=== PATIENT | female | born 1955 | race Caucasian/White ===

== ENCOUNTER → 2017-09-12 14:01 | Outpatient (CLI) | payer OTHER, SELFPAY ==
--- NOTE | 2017-09-12 14:13 | US_ITS ---
US thyroid HISTORY: Follow-up thyroid nodule ITS.REASON: THYROID NODULE ORDERING PHYSICIAN: Sana Pickett PATIENT AGE: 62 years COMPARISON: 03/28/2017 FINDINGS: The right lobe is 3.1 x 1.2 x 1.7 cm. Multiple right lobe nodules are once again noted. 5 mm cystic nodule superiorly, 3 mm hypoechoic nodule upper pole, 7 mm hypoechoic nodule mid aspect, 8 mm isoechoic nodule lower pole, 9 mm isoechoic solid-appearing nodule lower pole. 3 mm hypoechoic nodule lower pole Left lobe is 3.3 x 1.5 x 1.1 cm. 7 mm mixed nodule superiorly. 11 mm mixed nodule lower pole. No new nodules evident. IMPRESSION: Overall no change bilateral thyroid nodules.
== END ==
PROVIDERS: Family Provider Family Medicine; PCP Family Medicine; Visit Provider Nurse Practitioner
DX: E04.1 Nontoxic single thyroid nodule (principal)
CPT/HCPCS: 76536

== ENCOUNTER → 2018-06-05 16:08 | Outpatient (CLI) | payer BC, SELFPAY ==
--- NOTE | 2018-06-05 16:12 | MM_ITS ---
MM Dig screening mamm BI w/CAD ORDERING PHYSICIAN : Frank Sosa MD PATIENT AGE: 63 years GENDER: Female COMPARISON: March 2017, January 2016, July 2014, May 2013 bilateral mammogram INDICATION: ITS.REASON: Routine Screening Mammogram. No hormones. No new complaints \Family history mother and grandmother with breast cancer TECHNIQUE: Standard CC MLO images were obtained. R2 CAD reviewed. Additional axillary cc view both breast on plus MLO nipple profile view included FINDINGS: Moderate scattered fibroglandular elements with areas of moderate density. No new areas of significant concern in either breast.. Stable asymmetric areas of density on that can be followed RIGHT BREAST: No area of fibroglandular tissue D superior breast on 1 o'clock position again noted unchanged since multiple prior studies dating back to least 2014 LEFT BREAST:No new findings. . Stable benign calcification superior upper-outer quadrant left breast but only slight additional benign ringlet like configuration evident here. follow-up in one year adequate bilateral. IMPRESSION: No significant new findings. Bilateral follow-up in one year recommended. BI-RADS Category: 2 Benign Finding(s) RECOMMENDED FOLLOW-UP: 1YR 1 YEAR FOLLOW-UP (A letter has been sent to the patient regarding results of the study.)
== END ==
PROVIDERS: PCP Family Medicine; Visit Provider Nurse Practitioner Obstetrics & Gynecology
DX: Z12.31 Encounter for screening mammogram for malignant neoplasm of breast (principal)
CPT/HCPCS: 77067

== ENCOUNTER → 2018-06-18 15:34 | Outpatient (CLI) | payer BC, SELFPAY ==
--- NOTE | 2018-06-18 15:37 | US_ITS ---
US breast RT complete INDICATION: Palpable abnormality right breast ORDERING PHYSICIAN: Sana Pickett PATIENT AGE: 63 years COMPARISON: 06/05/2018 TECHNIQUE: Complete breast ultrasound performed with axilla FINDINGS: No cystic or solid lesions evident. Small nodes are present in the axilla IMPRESSION: Unremarkable right breast ultrasound. Negative mammogram and negative ultrasound does not exclude the possibility of malignancy. If there is indeed a palpable nodule, then, it should be managed on a clinical basis. BI-RADS Category: 1 Negative Recommendations: Follow up recommended as clinically warranted. If there is indeed a palpable nodule then, it should be managed on a clinical basis. (A letter has been sent to the patient regarding results of the study.)
== END ==
PROVIDERS: PCP Nurse Practitioner; Visit Provider Nurse Practitioner
DX: N63.10 Unspecified lump in the right breast, unspecified quadrant (principal)
CPT/HCPCS: 76641

== ENCOUNTER 2020-11-20 11:20 | Emergency (ER) | payer MEDICARE, SELFPAY ==
[2020-11-20 11:20] VITALS: BP 148/79; PULSE 87; RESP 16; TEMP 36.8; O2SAT 98; BMI 25.4
--- NOTE | 2020-11-20 11:58 | HMH.EDUTC ---
[facility] [place] Disposition Clinical Impression: Burning with urination Disposition: Home, Self-Care Condition on Discharge: Good Additional Instructions: Make sure to drink plenty of water on hot days to keep yourself hydrated Follow up with Family Doctor if no improvement Straight to ER if any worsening of symptoms or any life threatening symptoms Return if needed Referrals: Nicki Feng [Primary Care Provider] - As needed Time of Disposition: 12:03 Medical Decision Making - Saad Inquiry Pt receiving controlled substance: No Saad was queried for this patient: No Vital Signs: 11/20/20 11:20 11/20/20 12:07 Temperature 98.3 F 98.3 F Temperature Source Oral Pulse Rate 87 Pulse Rate [Right Brachial] 87 Respiratory Rate 16 16 Blood Pressure 148/79 H Blood Pressure [Right Arm] 148/79 H Blood Pressure Mean [Right Arm] 102 Blood Pressure Source [Right Arm] Automatic Cuff Blood Pressure Position [Right Arm] Sitting 02 Sat by Pulse Oximetry 98 Oxygen Delivery Method Room Air - Lab Data Lab results reviewed: Yes: I reviewed the patient's lab results. Medical Decision Narrative: Patient state at times she feels bloated in her lower abdomen and has achy like pain but not having it right now Discussed transfer to the ED and patient declined states that she will follow up with her PCP or go to the ER if pain returns [facility] HPI - General Stated complaint: possible uti Time Seen by Provider: 11/20/20 11:58 Mode of Arrival: Ambulatory Source of Information: Patient Limitations: No Limitations Description of Symptoms (Recalled from Triage Doc. by RN): PATIENT C/O PAIN WITH URINATION X 2 DAYS HEENT Symptoms (Recalled from RN notes): No Resp Symptoms (Recalled from RN notes): No Skin Symptoms (Recalled from RN notes): No MS Symptoms (Recalled from RN notes): No Functional Status (Recalled from RN notes): WNL - History of Present Illness Provider Complaint: Patient state that she has been having feeling of urgency and burning with urination for the last couple of days and feeling pressure State that she drink more water yesterday thinking it may help but today she was still having the burning so she came in - Related Data Home Medications Medication Instructions Recorded Confirmed Anastrozole 1 mg PO DAILY 03/23/19 03/23/19 hydroCHLOROthiazide [HCTZ 25mg 25 mg PO DAILY 03/23/19 03/23/19 tab] Previous Rx's Medication Instructions Recorded Ondansetron [Zofran 4mg ODT] 4 mg PO Q8HP PRN #20 tab.rapdis 03/23/19 Phenazopyridine HCl [Pyridium 200 pow PO TID #6 tab 03/23/19 200mg Tablet] Sulfamethoxazole/Trimethoprim 1 each PO BID 7 Days #14 tab 03/23/19 [Bactrim DS tablet] Allergies Allergy/AdvReac Type Severity Reaction Status Date / Time No Known Allergies Allergy Unverified 01/10/18 15:23 - Worker's Comp Is this a Worker's Comp case?: No [facility] History - Hepatitis A Screen Drug use history?: No High risk sexual behaviors?: No History of sexually transmitted infection?: No Currently employed?: No Childcare worker?: No Do you have indoor plumbing?: Yes Do you have electricity?: Yes Attestation statement:: This patient has been screened for Hepatitis A risk factors. I have reviewed the patient's past medical history: Yes Medical History: Reports:: Cancer (BREAST), Hyperlipidemia, Osteoporosis Other Medical History: Reports: Arthritis, Osteoporosis, Sinus Problems, Other Comment: Irregular Heartbeat. Polyps on Thyroid Other Surgeries: Yes: Appendectomy, Tubal Ligation, Other Amputation: No Fractures: No Comment: Rt. Arm Sx to scrape arthritis in - Social History Smoking Status: Never smoker Alcohol Intake: never Occupational Status: other Family Hx:: Hypertension, Coronary Artery Disease, Diabetes, Asthma Comment: Arthritis [employer] history: Tubal Ligation Comment: Preg #[id number]. Preg#[id number] ROS Obtained: Yes All systems reviewed & no sonam
[2020-11-20 12:07] VITALS: BP 148/79; PULSE 87; RESP 16; TEMP 36.8; O2SAT 98
[2020-11-20 19:45] LABS: Apearance,Urine Clear (Clear); Color,Urine Yellow (Yellow)
[2020-11-20 19:46] LABS: Bilirubin,Urine Negative (Negative); Blood, Urine Negative (Negative); Glucose,Urine (UA) 100 (Negative); Ketones,Urine Negative (Negative); Protein,Urine Negative (Negative); Specific Gravity, Urine 1.025 (1.005-1.030); UTC Leukocyte Esterase,Urine Negative (Negative); UTC Nitrate,Urine Negative (Negative); Urobilinogen,Urine 0.2 EU/dl (0.2)
== END 2020-11-20 12:10 | disposition home or self-care (01) ==
PROVIDERS: Emergency Provider Nurse Practitioner; PCP Family Medicine
DX: R30.0 Dysuria (principal); R35.0 Frequency of micturition; E78.5 Hyperlipidemia, unspecified; M81.0 Age-related osteoporosis without current pathological fracture
CPT/HCPCS: G0463; 81003; 99202

== ENCOUNTER 2021-02-04 12:42 | Emergency (ER) | payer MEDICARE, SELFPAY ==
[2021-02-04 13:10] VITALS: BP 150/90; PULSE 85; RESP 18; TEMP 37.1; O2SAT 996; BMI 26.4
[2021-02-04 13:31] VITALS: BP 150/90; PULSE 85; RESP 18; TEMP 37.1
--- NOTE | 2021-02-04 14:01 | HMH.EDUTC ---
[facility] [place] Disposition Clinical Impression: Exposure to COVID-19 virus Acute bronchitis Qualifiers: Bronchitis organism: unspecified organism Qualified Code(s): J20.9 - Acute bronchitis, unspecified Disposition: Home, Self-Care Condition on Discharge: Good Instructions: DI for COVID-19 (Suspected or Confirmed ), Preventing the Spread of Coronavirus Discharge Instructions Additional Instructions: Drink plenty of fluids. Take tylenol or ibuprofen for pain or fever. Take the medications as directed. Follow up with your regular doctor. GO TO THE ER FOR ANY WORSENING SYMPTOMS Quarantine until you know the results of your covid-19 test. If it is positive, the health department should call you and give you further instructions about your length of Quarantine and other things. Notify your school or workplace of your results and follow their instructions regarding return to work/school. The cough syrup (promethazine dm) will make you drowsy, so don't drive or operate heavy machinery after taking it. Bad tableReferrals: Nicki Feng [Primary Care Provider] - Time of Disposition: 14:29 Medical Decision Making - Medical Records Medical records reviewed: No: I reviewed the patient's medical records. - Saad Inquiry Pt receiving controlled substance: No Vital Signs: 02/04/21 13:10 02/04/21 13:31 Temperature 98.8 F 98.8 F Temperature Source Oral Pulse Rate 85 Pulse Rate [Left] 85 Respiratory Rate 18 18 Blood Pressure 150/90 H Blood Pressure [Right Arm] 150/90 H Blood Pressure Mean [Right Arm] 110 02 Sat by Pulse Oximetry 996 H [facility] [place] HPI - General Stated complaint: Sore throat; cough; sob, Time Seen by Provider: 02/04/21 14:15 Mode of Arrival: Ambulatory Source of Information: Patient Limitations: No Limitations Description of Symptoms (Recalled from Triage Doc. by RN): pt c/o myalgia, fever, R sided chest discomfort with coughing and R sided stomach ache. HEENT Symptoms (Recalled from RN notes): No Resp Symptoms (Recalled from RN notes): Yes (cough causing chest discomfort) Skin Symptoms (Recalled from RN notes): No MS Symptoms (Recalled from RN notes): No Functional Status (Recalled from RN notes): body aches and fever - History of Present Illness Provider Complaint: She states that she has been exposed to covid-19 last week by her grand daughter having it and being around her. She has not been vaccinated against covid-19. She c/o cough and chest congestion for the past 1 week. She has had low grade fever and chilling also. - Related Data Home Medications Medication Instructions Recorded Confirmed Anastrozole 1 mg PO DAILY 03/23/19 03/23/19 hydroCHLOROthiazide [HCTZ 25mg 25 mg PO DAILY 03/23/19 03/23/19 tab] Previous Rx's Medication Instructions Recorded Ondansetron [Zofran 4mg ODT] 4 mg PO Q8HP PRN #20 tab.rapdis 03/23/19 Phenazopyridine HCl [Pyridium 200 pow PO TID #6 tab 03/23/19 200mg Tablet] Sulfamethoxazole/Trimethoprim 1 each PO BID 7 Days #14 tab 03/23/19 [Bactrim DS tablet] Azithromycin [Z-Jack 250mg Tab*] 250 mg PO UD DOSE PK #6 tab 02/04/21 Benzonatate [Tessalon Perle 100mg 100 mg PO TIDP PRN #30 cap 02/04/21 Cap] Promethazine/Dextromethorphan 5 ml PO Q6HP PRN #240 ml 02/04/21 [Promethazine-Dm Syrup] methylPREDNISolone [Medrol] 4 mg PO DIRECTED 6 Days #21 02/04/21 packet Allergies Allergy/AdvReac Type Severity Reaction Status Date / Time No Known Allergies Allergy Unverified 01/10/18 15:23 - Worker's Comp Is this a Worker's Comp case?: No [facility] History - Hepatitis A Screen Drug use history?: No High risk sexual behaviors?: No History of sexually transmitted infection?: No Currently employed?: No Childcare worker?: No Do you have indoor plumbing?: Yes Do you have electricity?: Yes Attestation statement:: This patient has been screened for Hepatitis A risk factors. I have reviewed the patient's pas
== END 2021-02-04 14:40 | disposition home or self-care (01) ==
PROVIDERS: Emergency Provider Nurse Practitioner Family; PCP Family Medicine
DX: U07.1 COVID-19 (principal); J20.9 Acute bronchitis, unspecified; E78.5 Hyperlipidemia, unspecified; M81.0 Age-related osteoporosis without current pathological fracture; Z79.899 Other long term (current) drug therapy
CPT/HCPCS: G0463; 99202; C9803; U0003; U0005

== ENCOUNTER → 2021-03-18 17:45 | Outpatient (CLI) | payer MEDICARE, SELFPAY | PROVIDERS: Visit Provider Nurse Practitioner | DX: Z20.822 Contact with and (suspected) exposure to COVID-19 (principal) | CPT/HCPCS: C9803; U0003; U0005 ==

== ENCOUNTER 2022-02-14 15:30 | Outpatient (RCR) | payer MEDICARE, SELFPAY | END 2022-02-14 15:35 | disposition home or self-care (01) | LOC: PT 15:30 | PROVIDERS: PCP Family Medicine; Visit Provider Family Medicine | DX: M48.02 Spinal stenosis, cervical region (principal); M50.20 Other cervical disc displacement, unspecified cervical region; M53.9 Dorsopathy, unspecified | CPT/HCPCS: 97010; 97012; 97014; 97110; 97163; G0283 ==

== ENCOUNTER 2022-03-03 12:49 | Emergency (ER) | payer MEDICARE, SELFPAY ==
[2022-03-03 13:11] VITALS: PULSE 83; RESP 17; TEMP 36.9; O2SAT 99; BMI 26.0
[2022-03-03 13:21] LABS: UTC Strep Screen (Rapid) Negative (Negative)
--- NOTE | 2022-03-03 13:44 | EXP.UTC ---
Discharge Plan Disposition Patient Disposition: Home, Self-Care Condition: Good Prescriptions Prescriptions: New amoxicillin [amoxicillin] 875 mg tablet 875 mg PO Q12H Qty: 20 0RF benzonatate [benzonatate] 100 mg capsule 100 mg PO TIDP PRN (Reason: Cough) Qty: 30 0RF methylprednisolone 4 mg Tablets,Dose Pack 4 mg PO DIRECTED Qty: 21 0RF No Action promethazine-DM 6.25-15 mg/5 mL syrup 5 ml PO Q6HP PRN (Reason: Cough) Qty: 240 0RF benzonatate 100 mg capsule 100 mg PO TIDP PRN (Reason: Cough) Qty: 30 0RF anastrozole 1 MG tablet 1 mg PO DAILY Label Comments: take 1 tablet by mouth once daily hydrochlorothiazide 25 MG tablet 25 mg PO DAILY Label Comments: take 1 tablets by mouth once daily phenazopyridine 200 MG tablet 200 pow PO TID Qty: 6 0RF sulfamethoxazole-trimethoprim 1 EACH tablet 1 each PO BID 7 Days Qty: 14 0RF ondansetron 4 MG tablet,disintegrating 4 mg PO Q8HP PRN (Reason: Nausea) Qty: 20 0RF azithromycin 250 MG tablet 250 mg PO UD DOSE PK Qty: 6 0RF Rx Instructions: Take two (2) tablets today, then one (1) tablet days #2 thru #5 methylprednisolone 4 MG tablets,dose pack 4 mg PO DIRECTED 6 Days Qty: 21 0RF Referrals Follow up/Referrals: Provider,Referral, MD [Referring] - See instructions Activity Restrictions/Add. Instructions Additional Instructions/Restrictions: Drink plenty of fluids. Take tylenol or ibuprofen for pain or fever. Take the medications as directed. Follow up with your regular doctor. GO TO THE ER FOR ANY WORSENING SYMPTOMS Clinical Impressions Clinical Impression: Pharyngitis Instructions Patient Instructions: Strep Throat, DI for Strep Throat Discharge ED Provider: Tony Shane [facility] General Stated complaint: Sore throat, cough, drainage Mode of Arrival: Ambulatory Source of Information: Patient Limitations: No Limitations Time Seen by Provider: 03/03/22 13:28 Description of Symptoms (Recalled from Triage Doc. by RN): pt comes in with c/o sore throat, cough. symptoms began a few days ago. pts granddaughters have strep and she is around them frequently. HEENT Symptoms (Recalled from RN notes): Yes Resp Symptoms (Recalled from RN notes): Yes Skin Symptoms (Recalled from RN notes): No MS Symptoms (Recalled from RN notes): No Functional Status (Recalled from RN notes): n/a History of Present Illness Provider Complaint: She states that for the past 2 days she has had worsening sore throat and sinus congestion. Her grand daughter that lives with her tested positive for strep throat yesterday. She took a home covid-19 test that was negative yesterday. Related Data Home Medications Medication Instructions Recorded Confirmed anastrozole 1 mg tablet 1 mg PO DAILY BREAST CANCER 03/23/19 03/23/19 hydrochlorothiazide 25 mg tablet 25 mg PO DAILY Hypertension 03/23/19 03/23/19 Previous Rx's Medication Instructions Recorded ondansetron 4 mg disintegrating 4 mg PO Q8HP PRN Nausea ##20 03/23/19 tablet phenazopyridine 200 mg tablet 200 pow PO TID #6 tabs 03/23/19 sulfamethoxazole 800 1 each PO BID 7 days #14 tabs 03/23/19 mg-trimethoprim 160 mg tablet azithromycin 250 mg tablet 250 mg PO UD DOSE PK #6 tabs 02/04/21 methylprednisolone 4 mg tablets in 4 mg PO DIRECTED 6 days #21 02/04/21 a dose pack packets benzonatate 100 mg capsule 100 mg PO TIDP PRN Cough #30 caps 02/06/21 promethazine-DM 6.25 mg-15 mg/5 mL 5 ml PO Q6HP PRN Cough #240 mL 02/06/21 oral syrup amoxicillin 875 mg tablet 875 mg PO Q12H #20 tabs 03/03/22 benzonatate 100 mg capsule 100 mg PO TIDP PRN Cough #30 caps 03/03/22 methylprednisolone 4 mg tablets in 4 mg PO DIRECTED #21 tabs 03/03/22 a dose pack Allergies Allergy/AdvReac Type Severity Reaction Status Date / Time No Known Allergies Allergy Verified 03/03/22 13:19 Worker's Comp Is this a Worker's Comp case?: No PFSH PFSH Soc
[2022-03-03 14:00] VITALS: BP 0/0; PULSE 83; RESP 17; TEMP 36.9
== END 2022-03-03 14:00 | disposition home or self-care (01) ==
PROVIDERS: Emergency Provider Nurse Practitioner Family; PCP Family Medicine
DX: J02.9 Acute pharyngitis, unspecified (principal)
CPT/HCPCS: 87880; 99212; G0463

== ENCOUNTER 2022-03-10 13:39 | Emergency (ER) | payer MEDICARE, SELFPAY ==
[2022-03-10 14:20] LABS: Adenovirus,PCR Not Detected (NotDetected); Bordetella Pertussis Not Detected (NotDetected); Chlamydophila Pneumoniae, PCR Not Detected (NotDetected); Coronavirus 19, PCR Not Detected (NotDetected); Coronavirus 229E Not Detected (NotDetected); Coronavirus NL63 Not Detected (NotDetected); Coronavirus OC43 Not Detected (NotDetected); Coronovirus HKU1,PCR Not Detected (NotDetected); Human Metapneumovirus Not Detected (NotDetected); Influenza A, PCR Not Detected (NotDetected); Influenza AH1, 2009 Not Detected (NotDetected); Influenza AH1, PCR Not Detected (NotDetected); Influenza AH3,PCR Not Detected (NotDetected); Influenza B, PCR Not Detected (NotDetected); Mycoplasma Pneumoniae, PCR Not Detected (NotDetected); Parainfluenza 1, PCR Not Detected (NotDetected); Parainfluenza 2, PCR Not Detected (NotDetected); Parainfluenza 3, PCR Not Detected (NotDetected); Parainfluenza 4, PCR Not Detected (NotDetected); Respiratory Syncytial Virus Not Detected (NotDetected)
[2022-03-10 14:22] VITALS: BP 162/82; PULSE 74; RESP 16; TEMP 36.8; O2SAT 98; BMI 26.0
--- NOTE | 2022-03-10 14:25 | EXP.UTC ---
Discharge Plan Disposition Patient Disposition: Home, Self-Care Condition: Good Prescriptions Prescriptions: No Action promethazine-DM 6.25-15 mg/5 mL syrup 5 ml PO Q6HP PRN (Reason: Cough) Qty: 240 0RF benzonatate 100 mg capsule 100 mg PO TIDP PRN (Reason: Cough) Qty: 30 0RF amoxicillin [amoxicillin] 875 mg tablet 875 mg PO Q12H Qty: 20 0RF benzonatate [benzonatate] 100 mg capsule 100 mg PO TIDP PRN (Reason: Cough) Qty: 30 0RF methylprednisolone 4 mg Tablets,Dose Pack 4 mg PO DIRECTED Qty: 21 0RF anastrozole 1 MG tablet 1 mg PO DAILY Label Comments: take 1 tablet by mouth once daily hydrochlorothiazide 25 MG tablet 25 mg PO DAILY Label Comments: take 1 tablets by mouth once daily phenazopyridine 200 MG tablet 200 pow PO TID Qty: 6 0RF sulfamethoxazole-trimethoprim 1 EACH tablet 1 each PO BID 7 Days Qty: 14 0RF ondansetron 4 MG tablet,disintegrating 4 mg PO Q8HP PRN (Reason: Nausea) Qty: 20 0RF azithromycin 250 MG tablet 250 mg PO UD DOSE PK Qty: 6 0RF Rx Instructions: Take two (2) tablets today, then one (1) tablet days #2 thru #5 methylprednisolone 4 MG tablets,dose pack 4 mg PO DIRECTED 6 Days Qty: 21 0RF Referrals Follow up/Referrals: Nicki Feng [Primary Care Provider] - See instructions Activity Restrictions/Add. Instructions Additional Instructions/Restrictions: *Monitor Temp, Over the counter Motrin or Tylenol as directed/as needed Tylenol every 4 hours and Motrin every 6 hours (as long as your family doctor has told you that you can take it) for fever or pain. and straight to ER if unable to lower temp less than 101.0 after medication given *Warm salt water gargles may help to soothe the throat *Throat Lozenges? *Warm fluids like tea with honey may help to soothe the throat? *Sleep elevated *Humidifier/Vaporizer Take your medicaiton as prescribed As discussed hold your Medrol Dose pack if it is elevating your blood pressure and follow up with your Family Doctor to discuss blood pressure treatment Your throat swab was sent for culture. Those results are typically sent to your primary care. Be sure to follow up in 2-3 days with your family doctor/primary care physician if no improvement so they can review those result and treat if necessary. If you don?t have a primary care doctor, I recommend you get one but in the mean time, you will have to return to a walk in clinic Follow up IMMEDIATELY for new or worsening symptoms or no Noticeable improvement over the next 48-72 hours. 911 for difficulty breathing or swallowing Clinical Impressions Clinical Impression: URI (upper respiratory infection) Instructions Patient Instructions: Sore Throat, Amoxicillin [place]charge [place] Chaparrita Plummer [facility] [place] General Stated complaint: sore throat, coughm weakness, h/a, soa Mode of Arrival: Ambulatory Source of Information: Patient Limitations: No Limitations Time Seen by Provider: 03/10/22 14:25 Description of Symptoms (Recalled from Triage Doc. by RN): pt comes in with c/o respiratory infection, blood pressure elevated and sore throat. HEENT Symptoms (Recalled from RN notes): Yes Resp Symptoms (Recalled from RN notes): Yes Skin Symptoms (Recalled from RN notes): No MS Symptoms (Recalled from RN notes): No Functional Status (Recalled from RN notes): n/a History of Present Illness Provider Complaint: Patient states that she has been having sore throat and respiratory infection for about a week States that she was seen and started on antibiotics and steriods but stopped taking them due to it was making her blood pressure go up States that she is suppose to take blood pressure medication but hasnt been taking that either she stopped it about month ago but hasnt discussed it with her PCP States that she came in today wanting to get her throat swabbed again and discuss if she should start the
[2022-03-10 14:33] LABS: UTC Strep Screen (Rapid) Negative (Negative)
[2022-03-10 14:51] VITALS: BP 162/82; PULSE 74; RESP 16; TEMP 36.8
[2022-03-10 18:54] LABS: Rhinovirus/Enterovirus Detected (NotDetected)
== END 2022-03-10 14:52 | disposition home or self-care (01) ==
PROVIDERS: Emergency Provider Nurse Practitioner; PCP Family Medicine
DX: J06.9 Acute upper respiratory infection, unspecified (principal)
CPT/HCPCS: 87581; 87632; 87798; 87880; 99212; C9803; G0463; U0003; U0005

== ENCOUNTER 2022-07-12 11:59 | Emergency (ER) | payer MEDICARE, SELFPAY ==
--- NOTE | 2022-07-12 12:08 | EXP.UTC ---
Discharge Plan Disposition Patient Disposition: Home, Self-Care Condition: Good Prescriptions Prescriptions: New amoxicillin [amoxicillin] 500 mg tablet 500 mg PO TID 10 Days Qty: 30 0RF benzonatate [benzonatate] 100 mg capsule 100 mg PO TIDP PRN (Reason: Cough) Qty: 30 0RF prednisone 10 mg tablet 10 mg PO DIRECTED 9 Days Qty: 21 0RF Rx Instructions: Take 4 tablets daily for 3 days, then take 2 tablets daily for 3 days, then take 1 tablet daily for 3 days, then stop. No Action famotidine 20 mg tablet 20 mg PO BID Label Comments: TAKE 1 TABLET BY MOUTH TWICE DAILY exemestane 25 mg tablet 25 mg PO DAILY Label Comments: TAKE 1 TABLET BY MOUTH ONCE DAILY AFTER A MEAL ,TRY TO TAKE AT THE SAME TIME EACH DAY metoprolol succinate 25 mg tablet extended release 24 hr 25 mg PO DAILY Label Comments: TAKE 1 TABLET BY MOUTH ONCE DAILY DO NOT CRUSH OR CHEW Referrals Follow up/Referrals: Nicki Feng [Primary Care Provider] - See instructions Activity Restrictions/Add. Instructions Additional Instructions/Restrictions: Drink plenty of fluids. Take tylenol or ibuprofen for pain or fever. Take the medications as directed. Follow up with your regular doctor. GO TO THE ER FOR ANY WORSENING SYMPTOMS Clinical Impressions Clinical Impression: Acute bronchitis, Pharyngitis, Exposure to strep throat Instructions Patient Instructions: Strep Throat, DI for Strep Throat Discharge ED Provider: Tony Shane [facility] [place] HPI General Stated complaint: shaky, heavy chest, cough, congestion Time Seen by Provider: 07/12/22 12:07 History of Present Illness Provider Complaint: She states that for the past 3 days she has had a very sore throat, sinus congestion and a productive cough with yellowish sputum. She has had chills and felt like she had a fever, but she has not documented a fever. She denies any shortness of breath and chest pain. Related Data Home Medications Medication Instructions Recorded Confirmed exemestane 25 mg tablet 25 mg PO DAILY . 07/12/22 07/12/22 famotidine 20 mg tablet 20 mg PO BID . 07/12/22 07/12/22 metoprolol succinate 25 mg 25 mg PO DAILY . 07/12/22 07/12/22 tablet,extended release 24 hr Previous Rx's Medication Instructions Recorded amoxicillin 500 mg tablet 500 mg PO TID 10 days #30 tabs 07/12/22 benzonatate 100 mg capsule 100 mg PO TIDP PRN Cough #30 caps 07/12/22 prednisone 10 mg tablet 10 mg PO DIRECTED 9 days #21 07/12/22 tabs Allergies Allergy/AdvReac Type Severity Reaction Status Date / Time No Known Allergies Allergy Verified 07/12/22 12:27 [facility] Disclaimer: The information contained in this section may have been updated after the patient was seen, as this information can be updated by other users. Medical History Anxiety Hx of breast cancer Hyperlipidemia Hypertension Surgical History History of lumpectomy of right breast Social History Smoking Status: Never smoker alcohol intake: never current occupational status: other Travel in the last 8 weeks: None ROS Obtained: Yes All systems reviewed & no additional complaints except as documented Constitutional Constitutional: Reports chills and Reports fever(s) Eyes Eyes: Denies eye discharge ENT Ears, Nose, Mouth, and Throat: Reports as per HPI Cardiovascular Cardiovascular: Denies chest pain Respiratory Respiratory: Denies chest congestion and Reports cough Gastrointestinal Gastrointestingal: Reports nausea; Denies abdominal pain, constipation, cramping, diarrhea or vomiting Musculoskeletal Musculoskeletal: Denies arthralgias Integumentary/Breasts Skin/Breast: Denies rash Neurologic Neurologic: Denies paresthesias Physical Exam General General appearance: lizzette
[2022-07-12 12:15] VITALS: BP 166/87; PULSE 98; RESP 20; TEMP 36.9; O2SAT 96; BMI 26.4
[2022-07-12 12:30] LABS: UTC Strep Screen (Rapid) Negative (Negative)
[2022-07-12 13:12] VITALS: BP 166/87; PULSE 98; RESP 20; TEMP 36.9; O2SAT 96
== END 2022-07-12 13:11 | disposition home or self-care (01) ==
PROVIDERS: Emergency Provider Nurse Practitioner Family; PCP Family Medicine
DX: J20.9 Acute bronchitis, unspecified (principal); Z20.828 Contact with and (suspected) exposure to other viral communicable diseases
CPT/HCPCS: 87880; 99212; 99213; G0463

== ENCOUNTER 2023-04-23 14:00 | Emergency (ER) | payer MEDICARE, SELFPAY ==
[2023-04-23 14:45] VITALS: BP 149/76; PULSE 80; RESP 18; TEMP 37.2; O2SAT 96; BMI 26.0
--- NOTE | 2023-04-23 14:52 | EXP.UTC ---
Discharge Plan Disposition Patient Disposition: Home, Self-Care Condition: Good Prescriptions Prescriptions: New amoxicillin [amoxicillin] 875 mg tablet 875 mg PO Q12H Qty: 20 0RF benzonatate [benzonatate] 100 mg capsule 100 mg PO TIDP PRN (Reason: Cough) Qty: 30 0RF methylprednisolone 4 mg Tablets,Dose Pack 4 mg PO DIRECTED Qty: 21 0RF No Action exemestane 25 mg tablet 25 mg PO DAILY Patient Comments: TAKE 1 TABLET BY MOUTH ONCE DAILY AFTER A MEAL ,TRY TO TAKE AT THE SAME TIME EACH DAY ibuprofen 800 mg tablet 800 mg PO DAILY valacyclovir 1 gram tablet 100 mg PO DAILY amlodipine 5 mg tablet 5 mg PO DAILY potassium chloride 20 mEq tablet extended release 20 meq PO DAILY Referrals Follow up/Referrals: Provider,Referral, MD [Primary Care Provider] - See instructions Activity Restrictions/Add. Instructions Additional Instructions/Restrictions: Drink plenty of fluids. Take tylenol or ibuprofen for pain or fever. Take the medications as directed. Follow up with your regular doctor. GO TO THE ER FOR ANY WORSENING SYMPTOMS Clinical Impressions Clinical Impression: Otitis media, Pharyngitis Instructions Patient Instructions: Middle Ear Infection Discharge ED Provider: Tony Shane [facility] General Stated complaint: sore throat, ear ache Time Seen by Provider: 04/23/23 14:52 History of Present Illness Provider Complaint: She states that for the past 2 days she has had sore throat, chills, body aches and low grade fever. Related Data Home Medications Medication Instructions Recorded Confirmed exemestane 25 mg tablet 25 mg PO DAILY . 07/12/22 04/23/23 amlodipine 5 mg tablet 5 mg PO DAILY 04/23/23 04/23/23 ibuprofen 800 mg tablet 800 mg PO DAILY 04/23/23 04/23/23 potassium chloride 20 mEq 20 meq PO DAILY 04/23/23 04/23/23 tablet,extended release valacyclovir 1 gram tablet 100 mg PO DAILY 04/23/23 04/23/23 Previous Rx's Medication Instructions Recorded amoxicillin 875 mg tablet 875 mg PO Q12H #20 tabs 04/23/23 benzonatate 100 mg capsule 100 mg PO TIDP PRN Cough #30 caps 04/23/23 methylprednisolone 4 mg tablets in 4 mg PO DIRECTED #21 tabs 04/23/23 a dose pack Allergies Allergy/AdvReac Type Severity Reaction Status Date / Time No Known Allergies Allergy Verified 04/23/23 15:08 [facility] Disclaimer: The information contained in this section may have been updated after the patient was seen, as this information can be updated by other users. Medical History Anxiety Hx of breast cancer Hyperlipidemia Hypertension Surgical History History of lumpectomy of right breast Social History Smoking Status: Never smoker alcohol intake: never current occupational status: other Travel in the last 8 weeks: None ROS Obtained: Yes All systems reviewed & no additional complaints except as documented Constitutional Constitutional: Reports chills and Reports fever(s) Eyes Eyes: Denies eye discharge ENT Ears, Nose, Mouth, and Throat: Reports as per HPI Cardiovascular Cardiovascular: Denies chest pain Respiratory Respiratory: Denies chest congestion and Reports cough Gastrointestinal Gastrointestingal: Reports nausea; Denies abdominal pain, constipation, cramping, diarrhea or vomiting Musculoskeletal Musculoskeletal: Denies arthralgias Integumentary/Breasts Skin/Breast: Denies rash Neurologic Neurologic: Denies paresthesias Physical Exam General General appearance: alert and in no apparent distress Head Head exam: atraumatic, normocephalic and normal inspection Eye Eye exam: Present normal appearance, PERRL and EOMI ENT ENT exam: Present mucous membranes moist and normal external ear exam Expanded ENT Exam TM/Canal exam: Bilateral TM: erythema and bu
[2023-04-23 15:08] LABS: UTC Strep Screen (Rapid) Negative (Negative)
[2023-04-23 15:39] VITALS: BP 149/76; PULSE 80; RESP 18; TEMP 37.2; O2SAT 96
== END 2023-04-23 15:38 | disposition home or self-care (01) ==
PROVIDERS: Emergency Provider Nurse Practitioner Family
DX: H66.93 Otitis media, unspecified, bilateral (principal); J02.9 Acute pharyngitis, unspecified; R50.9 Fever, unspecified; I10 Essential (primary) hypertension; E78.5 Hyperlipidemia, unspecified
CPT/HCPCS: 87880; 99212; 99214; G0463

== ENCOUNTER 2023-10-15 18:27 | Emergency (ER) | payer MEDICARE, SELFPAY ==
[2023-10-15 18:55] VITALS: BP 186/90; PULSE 77; RESP 18; TEMP 36.9; O2SAT 96; BMI 27.0
--- NOTE | 2023-10-15 19:29 | ED_ITS ---
Discharge Plan Disposition Patient Disposition: Home, Self-Care Condition: Good Prescriptions Prescriptions: New doxycycline hyclate 100 mg capsule 100 mg PO BID Qty: 20 0RF No Action exemestane 25 mg tablet 25 mg PO DAILY Patient Comments: TAKE 1 TABLET BY MOUTH ONCE DAILY AFTER A MEAL ,TRY TO TAKE AT THE SAME TIME EACH DAY ibuprofen 800 mg tablet 800 mg PO DAILY valacyclovir 1 gram tablet 100 mg PO DAILY amlodipine 5 mg tablet 5 mg PO DAILY potassium chloride 20 mEq tablet extended release 20 meq PO DAILY amoxicillin [amoxicillin] 875 mg tablet 875 mg PO Q12H Qty: 20 0RF benzonatate [benzonatate] 100 mg capsule 100 mg PO TIDP PRN (Reason: Cough) Qty: 30 0RF methylprednisolone 4 mg Tablets,Dose Pack 4 mg PO DIRECTED Qty: 21 0RF Referrals Follow up/Referrals: Nicki Feng [Primary Care Provider] - See instructions Activity Restrictions/Add. Instructions Additional Instructions/Restrictions: Make sure to follow up with your Family Doctor in the next 5-7 days to get the results of your Lyme disease test they can request the results Take medication as prescribed Straight to ER if any life threatening symptoms Clinical Impressions Clinical Impression: Tick bite of abdomen Qualifiers: Encounter type: initial encounter Qualified Code(s): S30.861A - Insect bite (nonvenomous) of abdominal wall, initial encounter Instructions Patient Instructions: Doxycycline, Protect Yourself from Tickborne Illnesses Discharge ED Provider: Chaparrita Plummer [facility] [place] HPI General Stated complaint: Tick bite with rash on right side abd Mode of Arrival: Ambulatory Source of Information: Patient Limitations: No Limitations Time Seen by Provider: 10/15/23 19:30 Description of Symptoms (Recalled from Triage Doc. by RN): PATIENT C/O TICK BITE TO RIGHT LOWER ABDOMEN WITH ITCHY, RED RASH TO AREA. PATIENT SHE NOTICED THE BITE ON SUNDAY AND REMOVED THE TICK, WITH THE RASH STARTING ON SUNDAY HEENT Symptoms (Recalled from RN notes): No Resp Symptoms (Recalled from RN notes): No Skin Symptoms (Recalled from RN notes): Yes MS Symptoms (Recalled from RN notes): No Functional Status (Recalled from RN notes): WNL History of Present Illness Provider Complaint: Patient states that she was bitten by tick and noticed the tick on and removed it and then on Margarito she noticed a rash on her abdomen around where the tick had bitten and the rash is now starting to spread [place] Spotted fever from a bite Related Data Home Medications Medication Instructions Recorded Confirmed exemestane 25 mg tablet 25 mg PO DAILY . 07/12/22 04/23/23 amlodipine 5 mg tablet 5 mg PO DAILY 04/23/23 04/23/23 ibuprofen 800 mg tablet 800 mg PO DAILY 04/23/23 04/23/23 potassium chloride 20 mEq 20 meq PO DAILY 04/23/23 04/23/23 tablet,extended release valacyclovir 1 gram tablet 100 mg PO DAILY 04/23/23 04/23/23 Previous Rx's Medication Instructions Recorded amoxicillin 875 mg tablet 875 mg PO Q12H #20 tabs 04/23/23 benzonatate 100 mg capsule 100 mg PO TIDP PRN Cough #30 caps 04/23/23 methylprednisolone 4 mg tablets in 4 mg PO DIRECTED #21 tabs 04/23/23 a dose pack doxycycline hyclate 100 mg capsule 100 mg PO BID #20 caps 10/15/23 Allergies Allergy/AdvReac Type Severity Reaction Status Date / Time No Known Allergies Allergy Verified 04/23/23 15:08 Worker's Comp Is this a Worker's Comp case?: No [facility] Disclaimer: The information contained in this section may have been updated after the patient was seen, as this information can be updated by other users. Medical History (Updated 10/15/23 @ 19:42 by Chaparrita Plummer APRN) Hx of breast cancer Anxiety Hyperlipidemia Hypertension Surgical History (Updated 10/15/23 @ 19:03 by Marzena Santos RN) History of appendectomy History of tubal ligation History of lumpectomy of right breast Social History Smoking Status: Never smoker alcohol intake: never current occupational status: other Travel in the last 8 weeks: None ROS Obtained: Yes All systems reviewed & no additional complaints except as documented and Yes Systems reviewed as appropriate & no additional complaints except as documented Constitutional Constitutional: Reports system reviewed and no additional complaints, except as documented and Reports as per HPI ENT Ears, Nose, Mouth, and Throat: Reports system reviewed and no additional complaints, except as documented and Reports as per HPI Cardiovascular Cardiovascular: Reports system reviewed and no additional complaints, except as documented and Reports as per HPI Respiratory Respiratory: Reports system reviewed and no additional complaints, except as documented and Reports as per HPI Gastrointestinal Gastrointestingal: Reports system reviewed and no additional complaints, except as documented and as per HPI Integumentary/Breasts Skin/Breast: Reports system reviewed and no additional complaints, except as documented, Reports as per HPI and Reports rash (around tick bite on right abdomen) Physical Exam General General appearance: alert and in no apparent distress ENT ENT exam: Present mucous membranes moist Respiratory Respiratory exam: Present normal lung sounds bilaterally; Absent respiratory distress or wheezes Cardiovascular Cardiovascular exam: Present regular rate, normal rhythm and normal heart sounds Neurological Exam Neurological exam: Present alert, oriented X3 and normal gait Skin Skin exam: Present rash (red rash on right side lower abdomen that started after removal of tick on Sunday red raised and starting to expand) Medical Decision Making Saad Inquiry Pt receiving controlled substance: No Saad was queried for this patient: No Vital Signs: 10/15/23 18:55 Temperature 98.4 F Temperature Source Oral Pulse Rate [Left Brachial] 77 Respiratory Rate 18 Blood Pressure [Left Arm] 186/90 H Blood Pressure Mean [Left Arm] 122 Blood Pressure Source [Left Arm] Automatic Cuff Blood Pressure Position [Left Arm] Sitting 02 Sat by Pulse Oximetry 96 Oxygen Delivery Method Room Air
[2023-10-15 19:42] VITALS: BP 186/90; PULSE 77; RESP 18; TEMP 36.9; O2SAT 96
[2023-10-19 15:35] LABS: Lyme B. burgdorferi PCR Blood Negative (Negative)
== END 2023-10-15 20:00 | disposition home or self-care (01) ==
PROVIDERS: Emergency Provider Nurse Practitioner; PCP Family Medicine
DX: S30.861A Insect bite (nonvenomous) of abdominal wall, initial encounter (principal); W57.XXXA Bitten or stung by nonvenomous insect and other nonvenomous arthropods, initial encounter
CPT/HCPCS: 87476; 99212; 99214; G0463

== ENCOUNTER 2023-11-14 14:01 | Emergency (ER) | payer MEDICARE, SELFPAY ==
[2023-11-14 14:40] VITALS: BP 163/91; PULSE 75; RESP 20; TEMP 36.9; O2SAT 97; BMI 27.3
[2023-11-14 14:54] LABS: UTC Strep Screen (Rapid) Negative (Negative)
--- NOTE | 2023-11-14 15:06 | ED_ITS ---
Discharge Plan Disposition Patient Disposition: Home, Self-Care Condition: Good Prescriptions Prescriptions: New prednisone 10 mg tablet 10 mg PO DIRECTED 9 Days Qty: 21 0RF Rx Instructions: Take 4 tablets daily for 3 days, then take 2 tablets daily for 3 days, then take 1 tablet daily for 3 days, then stop. azithromycin [Zithromax] 250 mg tablet 250 mg PO UD DOSE PK Qty: 6 0RF Rx Instructions: Take two (2) tablets today, then one (1) tablet days #2 thru #5 benzonatate 100 mg capsule 100 mg PO TIDP PRN (Reason: Cough) Qty: 30 0RF No Action exemestane 25 mg tablet 25 mg PO DAILY Patient Comments: TAKE 1 TABLET BY MOUTH ONCE DAILY AFTER A MEAL ,TRY TO TAKE AT THE SAME TIME EACH DAY ibuprofen 800 mg tablet 800 mg PO DAILY valacyclovir 1 gram tablet 100 mg PO DAILY amlodipine 5 mg tablet 5 mg PO DAILY potassium chloride 20 mEq tablet extended release 20 meq PO DAILY amoxicillin [amoxicillin] 875 mg tablet 875 mg PO Q12H Qty: 20 0RF benzonatate [benzonatate] 100 mg capsule 100 mg PO TIDP PRN (Reason: Cough) Qty: 30 0RF methylprednisolone 4 mg Tablets,Dose Pack 4 mg PO DIRECTED Qty: 21 0RF doxycycline hyclate 100 mg capsule 100 mg PO BID Qty: 20 0RF Referrals Follow up/Referrals: Nicki Feng [Primary Care Provider] - See instructions Activity Restrictions/Add. Instructions Additional Instructions/Restrictions: Drink plenty of fluids. Take tylenol or ibuprofen for pain or fever. Take the medications as directed. Follow up with your regular doctor. GO TO THE ER FOR ANY WORSENING SYMPTOMS Don't start the oral steroids (prednisone) until tomorrow since you had the shot her Clinical Impressions Clinical Impression: Sinusitis Instructions Patient Instructions: Sinusitis, DI for Sinusitis Discharge ED Provider: Tony Shane [facility] [place] HPI General Stated complaint: sore throat, cough Time Seen by Provider: 11/14/23 15:01 Related Data Home Medications Medication Instructions Recorded Confirmed exemestane 25 mg tablet 25 mg PO DAILY . 07/12/22 04/23/23 amlodipine 5 mg tablet 5 mg PO DAILY 04/23/23 04/23/23 ibuprofen 800 mg tablet 800 mg PO DAILY 04/23/23 04/23/23 potassium chloride 20 mEq 20 meq PO DAILY 04/23/23 04/23/23 tablet,extended release valacyclovir 1 gram tablet 100 mg PO DAILY 04/23/23 04/23/23 Previous Rx's Medication Instructions Recorded amoxicillin 875 mg tablet 875 mg PO Q12H #20 tabs 04/23/23 benzonatate 100 mg capsule 100 mg PO TIDP PRN Cough #30 caps 04/23/23 methylprednisolone 4 mg tablets in 4 mg PO DIRECTED #21 tabs 04/23/23 a dose pack doxycycline hyclate 100 mg capsule 100 mg PO BID #20 caps 10/15/23 azithromycin 250 mg tablet 250 mg PO UD DOSE PK #6 tabs 11/14/23 (Zithromax) benzonatate 100 mg capsule 100 mg PO TIDP PRN Cough #30 caps 11/14/23 prednisone 10 mg tablet 10 mg PO DIRECTED 9 days #21 11/14/23 tabs Allergies Allergy/AdvReac Type Severity Reaction Status Date / Time No Known Allergies Allergy Verified 04/23/23 15:08 [facility] Disclaimer: The information contained in this section may have been updated after the patient was seen, as this information can be updated by other users. Medical History (Updated 11/14/23 @ 15:32 by Tony Shane APRN) Hx of breast cancer Anxiety Hyperlipidemia Hypertension Surgical History (Updated 10/15/23 @ 19:03 by Marzena Santos RN) History of appendectomy History of tubal ligation History of lumpectomy of right breast Social History Smoking Status: Never smoker alcohol intake: never current occupational status: other Travel in the last 8 weeks: None ROS Obtained: Yes All systems reviewed & no additional complaints except as documented Constitutional Constitutional: Reports poor appetite Eyes Eyes: Reports system reviewed and no additional complaints, except as documented ENT Ears, Nose, Mouth, and Throat: Reports as per HPI Cardiovascular Cardiovascular: Reports system reviewed and no additional complaints, except as documented and Denies chest pain Respiratory Respiratory: Denies shortness of breath, Denies chest congestion, Reports cough, Denies stridor and Denies wheezing Gastrointestinal Gastrointestingal: Reports system reviewed and no additional complaints, except as documented; Denies abdominal pain, diarrhea or vomiting Musculoskeletal Musculoskeletal: Reports system reviewed and no additional complaints, except as documented and Denies arthralgias Integumentary/Breasts Skin/Breast: Reports system reviewed and no additional complaints, except as documented and Denies rash Neurologic Neurologic: Denies paresthesias Allergic/Immunologic Allergic/Immunologic: Denies wheezing Physical Exam General General appearance: alert and in no apparent distress Eye Eye exam: Present normal appearance, PERRL and EOMI ENT ENT exam: Present mucous membranes moist and normal external ear exam Expanded ENT Exam External ear exam: Present normal external inspection TM/Canal exam: Bilateral TM: erythema and bulging Nose exam: Absent sinus tenderness Nasal speculum exam: Bilateral: normal Mouth exam: Present normal external inspection; Absent drooling Teeth exam: Present normal inspection Throat exam: Present tonsillar erythema and tonsillomegaly Neck Neck exam: Present normal inspection, full ROM and trachea midline; Absent tenderness, lymphadenopathy or thyromegaly Chest Chest inspection: Present normal inspection and symmetric chest wall rise; Absent tenderness or rash Respiratory Respiratory exam: Present normal lung sounds bilaterally; Absent respiratory distress, wheezes, stridor or accessory muscle use Cardiovascular Cardiovascular exam: Present regular rate, normal rhythm and normal heart sounds Abdominal Exam Abdominal exam: Present soft; Absent distention, tenderness, guarding, rebound or rigidity Extremities Exam Extremities exam: Present normal inspection, full ROM and normal capillary refill; Absent tenderness or calf tenderness Back Exam Back exam: Present normal inspection and full ROM; Absent tenderness Neurological Exam Neurological exam: Present alert and oriented X3 Psychiatric Psychiatric exam: Present normal affect and normal mood Skin Skin exam: Present warm, dry, intact and normal color Lymphatic Lymphatic Findings: no adenopathy Medical Decision Making Medical Records Medical records reviewed: No I reviewed the patient's medical records. Saad Inquiry Pt receiving controlled substance: No Lab Data Lab results reviewed: Yes I reviewed the patient's lab results. Lab Results 11/14/23 14:44: Strep Scn Rapid Clinic Negative Orders (Tests/Meds): ORDERS Category Date Time Status Strep Screen Confirmation Stat Micro 11/14/23 14:44 Received
[2023-11-14] MEDS: DEXAMETHASONE 4MG/ML 1ML VIAL 8 MG IM (15:16)
[2023-11-14 15:35] VITALS: BP 163/91; PULSE 75; RESP 20; TEMP 36.9; O2SAT 97
== END 2023-11-14 15:40 | disposition home or self-care (01) ==
PROVIDERS: Emergency Provider Nurse Practitioner Family; PCP Family Medicine
DX: J01.90 Acute sinusitis, unspecified (principal); R07.0 Pain in throat; R05.9 Cough, unspecified
CPT/HCPCS: 87880; 96372; 99212; 99214; G0463; J1100

== ENCOUNTER 2024-03-14 12:48 | Emergency (ER) | payer MEDICARE, SELFPAY ==
[2024-03-14] VITALS (7 sets, daily range): BP systolic 142–176; BP diastolic 75–99; PULSE 62–85; RESP 19–20; TEMP 36.8; O2SAT 96–98; BMI 25.4
--- NOTE | 2024-03-14 14:23 | XR_ITS ---
PROCEDURE INFORMATION: Exam: XR Right Ribs with PA Chest Exam date and time: 03/14/2024 2:43 PM Age: 68 years old Clinical indication: Chest wall pain; Right; Additional info: Fall, R sided rib pain TECHNIQUE: Imaging protocol: Radiologic exam of the right ribs with PA chest. Views: 3 views COMPARISON: No relevant prior studies available. FINDINGS: Lungs: Calcified granulomas noted at the right lung apex. Pleural spaces: No large effusion or pneumothorax. Heart/Mediastinum: There are multiple calcified mediastinal nodes. Vasculature: There are calcifications of the aortic arch. Bones/joints: No evidence of acute osseous abnormalities within the visualized portions of the thoracic spine and ribs. Osseous structures appear appropriate for patient age. IMPRESSION: 1. No displaced rib fracture is identified. 2. No dense parenchymal consolidation, pleural effusion, or pneumothorax.
[2024-03-14] MEDS: LIDOCAINE 5% TRANSDERMAL PATCH 1 EACH TP (15:40)
[2024-03-14] MEDS: ACETAMINOPHEN 500MG TAB 1000 MG PO (15:40)
--- NOTE | 2024-03-14 15:40 | ED_ITS ---
Discharge Plan Disposition Patient Disposition: Home, Self-Care Condition: Good Prescriptions Prescriptions: No Action prednisone 10 mg tablet 10 mg PO DIRECTED 9 Days Qty: 21 0RF Rx Instructions: Take 4 tablets daily for 3 days, then take 2 tablets daily for 3 days, then take 1 tablet daily for 3 days, then stop. azithromycin [Zithromax] 250 mg tablet 250 mg PO UD DOSE PK Qty: 6 0RF Rx Instructions: Take two (2) tablets today, then one (1) tablet days #2 thru #5 benzonatate 100 mg capsule 100 mg PO TIDP PRN (Reason: Cough) Qty: 30 0RF exemestane 25 mg tablet 25 mg PO DAILY Patient Comments: TAKE 1 TABLET BY MOUTH ONCE DAILY AFTER A MEAL ,TRY TO TAKE AT THE SAME TIME EACH DAY ibuprofen 800 mg tablet 800 mg PO DAILY valacyclovir 1 gram tablet 100 mg PO DAILY amlodipine 5 mg tablet 5 mg PO DAILY potassium chloride 20 mEq tablet extended release 20 meq PO DAILY amoxicillin [amoxicillin] 875 mg tablet 875 mg PO Q12H Qty: 20 0RF benzonatate [benzonatate] 100 mg capsule 100 mg PO TIDP PRN (Reason: Cough) Qty: 30 0RF methylprednisolone 4 mg Tablets,Dose Pack 4 mg PO DIRECTED Qty: 21 0RF doxycycline hyclate 100 mg capsule 100 mg PO BID Qty: 20 0RF Referrals Follow up/Referrals: Nicki Thomas MD [Primary Care Provider] - See instructions Activity Restrictions/Add. Instructions Additional Instructions/Restrictions: You were evaluated in the emergency department today. Please take Tylenol and ibuprofen every 4-6 hours at home as needed for pain. Follow-up closely with your primary care provider. Return to the emergency department for new or worsening symptoms. Clinical Impressions Clinical Impression: Contusion of rib Instructions Patient Instructions: DI for Rib Contusion Print Language Print Language: Cambodian Discharge ED Provider: Eliana Woo General Adult HPI General Chief complaint: PAIN Stated complaint: AO 03/13/24-Pain in R Rib area, heard pop Time Seen by Provider: 03/14/24 13:17 Mode of Arrival: Family Vehicle Source of Information: Patient and Medical Record Limitations: No Limitations Description of Symptoms (Recalled from ER Triage Doc. by RN): Pt c/o R anterior rib pain after leaning into her deep freezer yesterday. States she has low bone density and felt something pop when she was bending over the edge of the freezer. No bruising or redness noted to the skin. She has not had any OTC medications for this pain today. History of Present Illness HPI narrative: This patient is a 68-year-old female with a history of osteoporosis presenting to the emergency department for evaluation with concern for right anterior lower rib pain. She notes that she was leaning over on her right side into her deep freezer yesterday trying to get something out of the bottom of it when she felt a pop. She notes that she now has pain with coughing and tenderness palpation of right anterior lower ribs. She denies any shortness of breath, trouble breathing, or other concerns. She was well prior to this. No other injuries noted. Related Data Home Medications ?Medication ?Instructions ?Recorded ?Confirmed exemestane 25 mg tablet 25 mg PO DAILY . 07/12/22 04/23/23 amlodipine 5 mg tablet 5 mg PO DAILY 04/23/23 04/23/23 ibuprofen 800 mg tablet 800 mg PO DAILY 04/23/23 04/23/23 potassium chloride 20 mEq 20 meq PO DAILY 04/23/23 04/23/23 tablet,extended release valacyclovir 1 gram tablet 100 mg PO DAILY 04/23/23 04/23/23 Previous Rx's ?Medication ?Instructions ?Recorded amoxicillin 875 mg tablet 875 mg PO Q12H #20 tabs 04/23/23 benzonatate 100 mg capsule 100 mg PO TIDP PRN Cough #30 caps 04/23/23 methylprednisolone 4 mg tablets in 4 mg PO DIRECTED #21 tabs 04/23/23 a dose pack doxycycline hyclate 100 mg capsule 100 mg PO BID #20 caps 10/15/23 azithromycin 250 mg tablet 250 mg PO UD DOSE PK #6 tabs 11/14/23 (Zithromax) benzonatate 100 mg capsule 100 mg PO TIDP PRN Cough #30 caps 11/14/23 prednisone 10 mg tablet 10 mg PO DIRECTED 9 days #21 11/14/23 tabs Allergies Allergy/AdvReac Type Severity Reaction Status Date / Time No Known Allergies Allergy Verified 04/23/23 15:08 [facility] Disclaimer: The information contained in this section may have been updated after the patient was seen, as this information can be updated by other users. Medical History Hx of breast cancer Anxiety Hyperlipidemia Hypertension Surgical History History of appendectomy History of tubal ligation History of lumpectomy of right breast Social History Smoking Status: Former smoker alcohol intake: never current occupational status: other Travel in the last 8 weeks: None Other Medical History Have you received the Flu Vaccine for this season: No ROS Obtained: Yes All systems reviewed & no additional complaints except as documented Physical Exam General General appearance: alert and in no apparent distress Head Head exam: atraumatic and normocephalic Eye Eye exam: Present normal appearance, PERRL and EOMI ENT ENT exam: Present normal exam, normal oropharynx, mucous membranes moist and normal external ear exam Neck Neck exam: Present normal inspection, full ROM and trachea midline; Absent tenderness Chest Chest inspection: Present symmetric chest wall rise and tenderness Expanded Chest Exam Female Torso: 2 1. Tenderness to palpation with no obvious step-offs, deformities, or crepitus. No significant bruising. Respiratory Respiratory exam: Present normal lung sounds bilaterally; Absent respiratory distress, wheezes, stridor or accessory muscle use Cardiovascular Cardiovascular exam: Present regular rate and normal rhythm Abdominal Exam Abdominal exam: Present soft; Absent distention, tenderness or guarding Extremities Exam Extremities exam: Present normal inspection, full ROM and normal capillary refill; Absent tenderness or edema Back Exam Back exam: Present normal inspection and full ROM; Absent tenderness Neurological Exam Neurological exam: Present alert, oriented X3, CN II-XII intact and normal gait; Absent motor sensory deficit Psychiatric Psychiatric exam: Present normal affect and normal mood Skin Skin exam: Present warm and dry Medical Decision Making Medical Records Medical records reviewed: Yes I reviewed the patient's medical records. Screening: Per USPSTF and CDC recommendations, given the prevalence of disease in our region, it is our hospital?s policy to screen for HIV and viral Hepatitis for all patients aged 18 and over and those with ongoing risk factors. Saad Inquiry Pt receiving controlled substance: No Vital Signs: 03/14/24 12:50 03/14/24 13:30 03/14/24 14:00 Temperature 98.2 F Temperature Source Oral Pulse Rate 71 66 Pulse Rate [Right] 81 Respiratory Rate 19 Blood Pressure 157/85 H 156/89 H Blood Pressure [Right Arm] 164/76 H Blood Pressure Mean 98 111 Blood Pressure Mean [Right Arm] 105 Blood Pressure Source Blood Pressure Source [Right Arm] Automatic Cuff 02 Sat by Pulse Oximetry 98 97 98 Oxygen Delivery Method Room Air Room Air Room Air 03/14/24 14:30 03/14/24 15:01 03/14/24 15:41 Temperature Temperature Source Pulse Rate 66 62 Pulse Rate [Right] Respiratory Rate Blood Pressure 142/81 H 162/83 H 176/99 H Blood Pressure [Right Arm] Blood Pressure Mean 112 109 Blood Pressure Mean [Right Arm] Blood Pressure Source Blood Pressure Source [Right Arm] 02 Sat by Pulse Oximetry 97 96 Oxygen Delivery Method Room Air Room Air 03/14/24 16:10 Temperature 98.2 F Temperature Source Oral Pulse Rate 85 Pulse Rate [Right] Respiratory Rate 20 Blood Pressure 142/75 H Blood Pressure [Right Arm] Blood Pressure Mean Blood Pressure Mean [Right Arm] Blood Pressure Source Automatic Cuff Blood Pressure Source [Right Arm] 02 Sat by Pulse Oximetry Oxygen Delivery Method Room Air Lab Data Lab results reviewed: Yes I reviewed the patient's lab results. Orders (Tests/Meds): ED MEDICATIONS Discontinued Medications Generic Name Dose Route Start Last Admin Trade Name Freq PRN Reason Stop Dose Admin Acetaminophen 1,000 mg 03/14/24 15:35 03/14/24 15:40 Acetaminophen 500mg Tab PO 03/14/24 15:36 1,000 mg ONCE ONE Administration Ketorolac Tromethamine 30 mg 03/14/24 15:35 03/14/24 15:41 Ketorolac 30mg/Ml Vial IM 03/14/24 15:36 30 mg ONCE ONE Administration Lidocaine 1 each 03/14/24 15:35 03/14/24 15:40 Lidocaine 5% Transdermal Patch TP 03/14/24 15:36 1 each ONCE ONE Administration ORDERS Category Date Time Status XR ribs RT min 3V w CXR1V Stat Exams 03/14/24 14:23 Completed Medical Decision Narrative: In summary, this patient is a 68-year-old female presenting to the Emergency Department for evaluation of right anterior lower rib pain. Differential diagnoses considered include but are not limited to rib fracture, rib contusion, musculoskeletal strain/sprain, pneumothorax. Ruling out the most morbid conditions drove assessment. It should be noted patient's history includes osteoporosis which is not at goal therapy. This complicates all aspects of care by increasing patient's risk for morbidity. On exam, the patient is lying in bed in no acute distress with reassuring vital signs on cardiac telemetry. She has tenderness to palpation of her right anterior lower ribs with no appreciable step-offs, crepitus, or significant deformity. Workup included x-rays of the ribs and chest. She was given IM Toradol, oral Tylenol, and topical Lidoderm patch for symptomatic improvement of pain. I independently interpreted x-rays prior to the radiologist read and noted no obvious significantly displaced rib fractures and no pneumothorax. Please see their read for final interpretation. On reassessment, the patient is resting comfortably and continues to have no increased work of breathing with reassuring vital signs on cardiac telemetry. Based on reassuring exam and history, I feel that she is appropriate for discharge home with diagnosis of likely rib contusion, though I did explain to her that sometimes subtle fractures can be missed on x-ray. She was given instructions for supportive management and strict return precautions. She was discharged after all questions were answered. Critical Care Critical Care Time Critical Care Time: No
[2024-03-14] MEDS: KETOROLAC 30MG/ML VIAL 30 MG IM (15:41)
== END 2024-03-14 16:14 | disposition home or self-care (01) ==
PROVIDERS: Emergency Provider Emergency Medicine; PCP Family Medicine
DX: S20.219A Contusion of unspecified front wall of thorax, initial encounter (principal); R07.82 Intercostal pain; X58.XXXA Exposure to other specified factors, initial encounter; Y93.89 Activity, other specified; Y92.008 Other place in unspecified non-institutional (private) residence as the place of occurrence of the external cause
CPT/HCPCS: 71101; 96372; 99283; J1885

== ENCOUNTER 2024-05-02 14:52 | Emergency (ER) | payer MEDICARE, SELFPAY ==
[2024-05-02] VITALS (8 sets, daily range): BP systolic 128–171; BP diastolic 83–85; PULSE 70–86; RESP 11–19; TEMP 36.7; O2SAT 94–98; BMI 24.7
--- NOTE | 2024-05-02 14:57 | ECG_ITS ---
APPROVED REPORT Exam: Resting ECG HR:86 bpm ECG Measurements Heart Rate 86 AXES NE 150 P 33 QRSd 103 QRS -7 QT 358 T 33 QTc 401 Conclusion SINUS RHYTHM INCOMPLETE RIGHT BUNDLE BRANCH BLOCK [90+ ms QRS DURATION, TERMINAL R IN V1/V2, 40+ ms S IN I/aVL/V4/V5/V6] BORDERLINE ECG UNCONFIRMED REPORT Electronically signed by : Tony Oquendo, 05/03/2024 23:12:10
--- NOTE | 2024-05-02 14:58 | ED_ITS ---
<Statement entered by Monica Oquendo MD - 05/02/24 23:23> I was consulted by the KATHRYN, and we discussed the complexity of the problems being addressed. I approved the treatment and management plan for this patient's care in the emergency department, thus performing a substantive portion of the medical decision making. Monica Oquendo MD, LAURA, FACEP Discharge Plan Disposition Patient Disposition: Home, Self-Care Condition: Good Prescriptions Prescriptions: No Action prednisone 10 mg tablet 10 mg PO DIRECTED 9 Days Qty: 21 0RF Rx Instructions: Take 4 tablets daily for 3 days, then take 2 tablets daily for 3 days, then take 1 tablet daily for 3 days, then stop. azithromycin [Zithromax] 250 mg tablet 250 mg PO UD DOSE PK Qty: 6 0RF Rx Instructions: Take two (2) tablets today, then one (1) tablet days #2 thru #5 benzonatate 100 mg capsule 100 mg PO TIDP PRN (Reason: Cough) Qty: 30 0RF exemestane 25 mg tablet 25 mg PO DAILY Patient Comments: TAKE 1 TABLET BY MOUTH ONCE DAILY AFTER A MEAL ,TRY TO TAKE AT THE SAME TIME EACH DAY ibuprofen 800 mg tablet 800 mg PO DAILY valacyclovir 1 gram tablet 100 mg PO DAILY amlodipine 5 mg tablet 5 mg PO DAILY potassium chloride 20 mEq tablet extended release 20 meq PO DAILY amoxicillin [amoxicillin] 875 mg tablet 875 mg PO Q12H Qty: 20 0RF benzonatate [benzonatate] 100 mg capsule 100 mg PO TIDP PRN (Reason: Cough) Qty: 30 0RF methylprednisolone 4 mg Tablets,Dose Pack 4 mg PO DIRECTED Qty: 21 0RF doxycycline hyclate 100 mg capsule 100 mg PO BID Qty: 20 0RF Referrals Follow up/Referrals: Nicki Thomas MD [Primary Care Provider] - See instructions Blaine Amin MD [Staff Physician] - See instructions Clinical Impressions Clinical Impression: Chest pain Instructions Patient Instructions: DI for Chest Pain Print Language Print Language: Malaysian Discharge ED Provider: Monica Oquendo HPI General Chief Complaint: Chest Pain Stated Complaint: on and off chest pain-not at moment Time Seen by Provider: 05/02/24 14:58 History of Present Illness HPI narrative: -Presents for evaluation of chest pain. Patient gives a 2-week history of intermittent chest pain. Last episode was today. Patient states that she has very brief episodes of substernal chest pain during exertional activities primarily. Patient states that that she has never had it at rest. Patient states that she put up her [employer] [facility] register yesterday and did not have it however she was playing with her grandchild today and had it. She denies any shortness of breath fever chills hemoptysis hematochezia melena nausea vomiting diarrhea. She does not have a cardiac history. Related Data Home Medications ?Medication ?Instructions ?Recorded ?Confirmed exemestane 25 mg tablet 25 mg PO DAILY . 07/12/22 04/23/23 amlodipine 5 mg tablet 5 mg PO DAILY 04/23/23 04/23/23 ibuprofen 800 mg tablet 800 mg PO DAILY 04/23/23 04/23/23 potassium chloride 20 mEq 20 meq PO DAILY 04/23/23 04/23/23 tablet,extended release valacyclovir 1 gram tablet 100 mg PO DAILY 04/23/23 04/23/23 Previous Rx's ?Medication ?Instructions ?Recorded amoxicillin 875 mg tablet 875 mg PO Q12H #20 tabs 04/23/23 benzonatate 100 mg capsule 100 mg PO TIDP PRN Cough #30 caps 04/23/23 methylprednisolone 4 mg tablets in 4 mg PO DIRECTED #21 tabs 04/23/23 a dose pack doxycycline hyclate 100 mg capsule 100 mg PO BID #20 caps 10/15/23 azithromycin 250 mg tablet 250 mg PO UD DOSE PK #6 tabs 11/14/23 (Zithromax) benzonatate 100 mg capsule 100 mg PO TIDP PRN Cough #30 caps 11/14/23 prednisone 10 mg tablet 10 mg PO DIRECTED 9 days #21 11/14/23 tabs Allergies Allergy/AdvReac Type Severity Reaction Status Date / Time No Known Allergies Allergy Verified 04/23/23 15:08 [facility] Disclaimer: The information contained in this section may have been updated after the patient was seen, as this information can be updated by other users. Medical History Hx of breast cancer Anxiety Hyperlipidemia Hypertension Surgical History History of appendectomy History of tubal ligation History of lumpectomy of right breast Social History Smoking Status: Former smoker alcohol intake: never current occupational status: other Travel in the last 8 weeks: None Other Medical History Have you received the Flu Vaccine for this season: No ROS Obtained: Yes Systems reviewed as appropriate & no additional complaints except as documented Physical Exam General General appearance: alert and in no apparent distress Respiratory Respiratory exam: Present normal lung sounds bilaterally Cardiovascular Cardiovascular exam: Present regular rate and normal heart sounds Neurological Exam Neurological exam: Present alert and oriented X3 HEART Score HEART Score HEART Score assessment performed?: Yes History (anamnesis): Slightly suspicious ECG: Non-specific disturbance Age: >65 years Risk factors: 1-2 risk factors Troponin: </= normal limit HEART Score: 4 Critical Care Critical Care Time Critical Care Time: No Medical Decision Making Medical Records Medical records reviewed: Yes I reviewed the patient's medical records. Saad Inquiry Pt receiving controlled substance: No Vital Signs Vital Signs: 05/02/24 14:52 05/02/24 16:00 05/02/24 16:15 Temperature 98.0 F Temperature Source Oral Pulse Rate 76 71 Pulse Rate [Right] 86 Respiratory Rate 16 13 11 L Blood Pressure 128/85 Blood Pressure [Right Arm] 171/85 H Blood Pressure Mean [Right Arm] 113 Blood Pressure Source Blood Pressure Source [Right Arm] Automatic Cuff 02 Sat by Pulse Oximetry 98 96 94 L Oxygen Delivery Method Room Air 05/02/24 16:30 05/02/24 16:45 05/02/24 17:00 Temperature Temperature Source Pulse Rate 79 76 76 Pulse Rate [Right] Respiratory Rate 14 11 L 19 Blood Pressure 151/83 H 157/85 H Blood Pressure [Right Arm] Blood Pressure Mean [Right Arm] Blood Pressure Source Blood Pressure Source [Right Arm] 02 Sat by Pulse Oximetry 94 L 95 95 Oxygen Delivery Method 05/02/24 17:30 05/02/24 17:40 Temperature 98.0 F Temperature Source Oral Pulse Rate 70 72 Pulse Rate [Right] Respiratory Rate 14 16 Blood Pressure 137/83 137/83 Blood Pressure [Right Arm] Blood Pressure Mean [Right Arm] Blood Pressure Source Automatic Cuff Blood Pressure Source [Right Arm] 02 Sat by Pulse Oximetry 95 Oxygen Delivery Method Room Air Room Air Lab Data Lab results reviewed: Yes I reviewed the patient's lab results. Labs: Lab Results 05/02/24 15:00: WBC 7.3, RBC 4.96, Hgb 15.4, Hct 44.8, MCV 90.4, MCH 31.0, MCHC 34.3, RDW 13.1, Plt Count 325, MPV 7.7, Neut % (Auto) 59.0, Lymph % (Auto) 30.9, Boyd % (Auto) 5.6, Eos % (Auto) 2.8, Baso % (Auto) 1.7, Neut # (Auto) 4.3, Lymph # (Auto) 2.3, Boyd # (Auto) 0.4, Eos # (Auto) 0.2, Baso # (Auto) 0.1, D-Dimer 0.86 H, Sodium 142, Potassium 3.9, Chloride 108 H, Carbon Dioxide 26, Anion Gap 11.9, BUN 15, Creatinine 0.80, Estimated GFR 71, Est GFR ( Amer) 86, Glucose 97, Calcium 9.1, Total Bilirubin 0.4, AST 31, ALT 25, Alkaline Phosphatase 79, Troponin I < 0.01, NT-Pro-B Natriuret Pep 37.4, Total Protein 8.0, Albumin 4.6, Globulin 3.4 H, Albumin/Globulin Ratio 1.4, HIV 1&2 Antibody Rapid Nonreactive 05/02/24 16:01: SARS-CoV-2 (PCR) Not detected, Influenza A Untype (PCR) Not detected, Influenza Type B (PCR) Not detected, POC RSV Rapid Negative 05/02/24 17:00: Troponin I < 0.01 05/02/24 15:00 05/02/24 15:00 Response Orders (Tests/Meds): ORDERS Category Date Time Status Chest XR 2 view (NOT portable) [XR chest 2V] Stat Exams 05/02/24 15:10 Completed BNP [NT Pro Brain Natriuretic Pep.] Stat Lab 05/02/24 15:00 Completed CBC w/Auto Diff [Complete Blood Count Auto Diff] Stat Lab 05/02/24 15:00 Completed CMP [Comprehensive Metabolic Panel] Stat Lab 05/02/24 15:00 Completed D-Dimer Stat Lab 05/02/24 15:00 Completed Full Resp Panel w/COVID ([facility]) Routine Lab 05/02/24 16:01 Received HIV (1&2) Antibody Rapid Stat Lab 05/02/24 15:00 Completed Hep C Ab with Reflex to RNA Stat Lab 05/02/24 15:00 Received RSV Rapid Ab Screen Stat Lab 05/02/24 16:01 Completed Rapid PCR Covid and Flu A/B Stat Lab 05/02/24 16:01 Completed Trop I [Troponin I] Stat Lab 05/02/24 15:00 Completed Troponin I Q3H Lab 05/02/24 17:00 Completed MDM Narrative Medical Decision Narrative: In summary patient is a 69-year-old female who presents to the emergency department for evaluation of chest pain. Patient is medically stable upon arrival, febrile. Physical exam is unremarkable and nonfocal currently curling no chest pain no shortness of breath fever chills hemoptysis hematochezia melena nausea vomiting diarrhea. Patient has no reproducible chest pain on palpation. Patient has no epigastric tenderness. Breath sounds are clear and equal bilaterally to the bases. EKG appears to be normal sinus rhythm on the bedside monitor.. Differential diagnosis includes ACS versus esophageal spasm versus gastroenteritis versus GERD etc. Initial workup will be conducted with hematologic labs plain film chest x-ray twelve-lead EKG respiratory swabs. Initial interventions were considered however patient has no current symptoms thus deferred for now. Initial workup reviewed by me shows that her hematologic labs are nonactionable her troponins were negative x 2 her plain film chest x- ray via my informal interpretation shows no acute processes and her twelve-lead EKG showed no evidence of ACS. Due to age patient could not be ruled in or out by PERC criteria thus D-dimer was done and via years criteria her D-dimer is not above 1 thus PE is ruled out.. Upon repeat evaluation patient has had no symptoms while been in the emergency department.. Given this patient is appropriate for discharge referral to cardiology for further workup and close follow-up with her PCP.
--- NOTE | 2024-05-02 15:10 | XR_ITS ---
FINAL REPORT CLINICAL HISTORY: Intermittent chest pain COMPARISON: None FINDINGS: Two views of the chest were obtained. The heart size and pulmonary vascularity are within normal limits. The mediastinum is normal. No acute pulmonary abnormality is identified. There are multiple calcified granulomas in the right lung. There is no pneumothorax. The bony thorax is intact. IMPRESSION: No active cardiopulmonary disease. Reviewed, Interpreted and Dictated by Max Ramon III, MD Transcribed by Tita Diaz Authenticated and . [facility]
[2024-05-02 15:15] LABS: Basophils # 0.1 K/mm3 (0-0.2); Basophils % 1.7 % (0.1-2.0); Eosinophils # 0.2 K/mm3 (0.0-0.4); Eosinophils % 2.8 % (0.1-12.0); Hematocrit 44.8 % (37.0-47.0); Hemoglobin 15.4 g/dL (12.2-16.2); Lymphocytes # 2.3 K/mm3 (0.7-4.5); Lymphocytes % 30.9 % (10-50); Mean Corpuscular HGB Conc 34.3 g/dL (31.8-35.4); Mean Corpuscular Volume 90.4 fl (81-99); Mean Platelet Volume 7.7 fl (7.4-10.4); Monocytes # 0.4 K/mm3 (0.1-1.0); Monocytes % 5.6 % (1.7-9.3); Neutrophils # 4.3 K/mm3 (1.8-7.8); Platelet Count 325 K/mm3 (142-424); Red Blood Count 4.96 M/mm3 (4.20-5.40); Red Cell Distribution Width 13.1 % (11.5-17.5); White Blood Count 7.3 K/mm3 (4.8-10.8)
[2024-05-02 15:22] LABS: Alanine Aminotransferase 25 U/L (12-78); Albumin Level 4.6 g/dl (3.5-5.0); Albumin/Globulin Ratio 1.4 (1.1-1.8); Alkaline Phosphatase 79 U/L (38-126); Anion Gap 11.9 mEq/L (5-15); Aspartate Amino Transferase 31 U/L (14-36); Bilirubin,Total 0.4 mg/dl (0.2-1.3); Blood Urea Nitrogen 15 mg/dl (7-17); Calcium 9.1 mg/dl (8.4-10.2); Carbon Dioxide 26 mmol/L (22.0-30.0); Chloride 108 mmol/L (98-107); Estimated Glomerular Filt Rate 71 ml/min (>60); GFR (African American) 86 ML/MIN (>60); Globulin 3.4 g/dL (1.3-3.2); Glucose 97 mg/dl (74-100); Potassium 3.9 mmoL/L (3.5-5.1); Sodium 142 mmol/L (136-145)
[2024-05-02 15:26] LABS: D-Dimer 0.86 ug/mL (0.0-0.5)
[2024-05-02 15:35] LABS: NT Pro Brain Natriuretic Pep. 37.4 pg/mL (0-125)
[2024-05-02 15:44] LABS: Troponin I < 0.01 ng/ml (0.00-0.034)
--- NOTE | 2024-05-02 16:02 | PC.NURSE ---
Respiratory swab sent to lab; pt reports no needs at this time
[2024-05-02 16:06] LABS: Adenovirus,PCR Not Detected (NotDetected); Bordetella Pertussis Not Detected (NotDetected); Chlamydophila Pneumoniae, PCR Not Detected (NotDetected); Coronavirus 19, PCR Not Detected (NotDetected); Coronavirus 229E Not Detected (NotDetected); Coronavirus NL63 Not Detected (NotDetected); Coronavirus OC43 Not Detected (NotDetected); Coronovirus HKU1,PCR Not Detected (NotDetected); Human Metapneumovirus Not Detected (NotDetected); Influenza A, PCR Not Detected (NotDetected); Influenza AH1, 2009 Not Detected (NotDetected); Influenza AH1, PCR Not Detected (NotDetected); Influenza AH3,PCR Not Detected (NotDetected); Influenza B, PCR Not Detected (NotDetected); Mycoplasma Pneumoniae, PCR Not Detected (NotDetected); Parainfluenza 1, PCR Not Detected (NotDetected); Parainfluenza 2, PCR Not Detected (NotDetected); Parainfluenza 3, PCR Not Detected (NotDetected); Parainfluenza 4, PCR Not Detected (NotDetected); Respiratory Syncytial Virus Not Detected (NotDetected); Rhinovirus/Enterovirus Not Detected (NotDetected)
[2024-05-02 16:14] LABS: Coronavirus 19, PCR Not Detected (NotDetected); Influenza A, PCR Not Detected (NotDetected); Influenza B, PCR Not Detected (NotDetected)
--- NOTE | 2024-05-02 16:59 | PC.NURSE ---
labs states that rsv, covid and flu will take approx 40 minutes until results
[2024-05-02 17:11] LABS: RSV Rapid Ab Screen Negative (Negative)
[2024-05-02 17:36] LABS: Troponin I < 0.01 ng/ml (0.00-0.034)
[2024-05-02 17:44] LABS: HIV (1&2) Antibody Rapid NONREACTIVE (NONREACTIVE)
[2024-05-03 09:00] LABS: HCV Ab Non Reactive (Non Reactive)
== END 2024-05-02 18:00 | disposition home or self-care (01) ==
PROVIDERS: Physician Assistant; Emergency Provider Student in an Organized Health Care Education/Training Program; PCP Family Medicine
DX: R07.9 Chest pain, unspecified (principal)
CPT/HCPCS: 71046; 80053; 83880; 84484; 85025; 85378; 86803; 87389; 87633; 87636; 87807; 93005; 99284

== ENCOUNTER 2024-05-06 15:20 | Outpatient (CLI) | payer MEDICARE, SELFPAY | END 2024-05-06 23:59 | disposition home or self-care (01) | LOC: RT 15:22 | PROVIDERS: PCP Family Medicine; Visit Provider Physician Assistant | DX: R00.2 Palpitations (principal); I10 Essential (primary) hypertension; E78.49 Other hyperlipidemia; R94.31 Abnormal electrocardiogram [ECG] [EKG]; Z82.49 Family history of ischemic heart disease and other diseases of the circulatory system; R07.89 Other chest pain; R06.00 Dyspnea, unspecified | CPT/HCPCS: 93270 ==

== ENCOUNTER 2024-05-15 07:52 | Outpatient (CLI) | payer MEDICARE, SELFPAY ==
--- NOTE | 2024-05-15 | CA_ITS ---
APPROVED REPORT Exam: Pharmacologic Technologist: Santa Davis Ht: 5 ft 1 in Wt: 143 lbs BSA: 1.64 m2 Stress Test Details Test: Lexiscan Reason for pharmacologic stress test: physical limitation. HR Resting HR: 67 bpm Max Heart Rate (APMHR): 152 bpm Max HR Achieved: 106 bpm Target HR (85% APMHR): 129 bpm % of APMHR: 70 Recovery HR: 80 bpm BP Resting BP: 146.0/76.0 mmHg Max BP: 167.0/83.0 mmHg Recovery BP: 146.0/74.0 mmHg ECG Resting ECG: NSR Stress ECG Conclusion Symptoms: Mild SOA, head discomfort, mild stomach discomfort. No CP. Arrhythmias/Ectopy: Rare PVC. ST-T Changes: No significant changes. Conclusion: Unremarkable Lexiscan stress Electronically signed by : Leann Amin MD 05/15/2024 12:40:45
--- NOTE | 2024-05-15 07:53 | NM_ITS ---
APPROVED REPORT Exam: Nuclear Stress Test Indication: chest pain..soa Patient Location: Outpatient Stress Tech: Santa Ontiveros [place] Tech:Shira PedersonMARIA LUISA RT(R)(N) Ht: 5 ft 0 in Wt: 145 lbs Bra Size: 38b HR: 67 bpm BP: 146/76 mmHg BSA: 1.63 m2 TID: 1.07 History: chest pain, soa Procedure: Patient received 0.4 mg of intravenous Lexiscan, resting heart rate 67 bpm, resting blood pressure 146/76 mmHg, with Lexiscan maximum heart rate achieved was 106 bpm which is 85 % of the maximum predicted heart rate and blood pressure was 167/83 mmHg. With Lexiscan, patient denied any complaint of chest pain. Cardiac Stress and Resting SPECT Images: Cardiac Stress and Resting SPECT images were obtained using technetium 99m Myoview 32.8 mCi stress and 10.76 mCi at rest. Resting and stress imaging in supine and prone positions demonstrate no evidence of fixed or reversible perfusion defects. Gated imaging demonstrates normal global and regional LV systolic function. LVEF is calculated at 64%. Conclusion: No evidence of fixed or reversible perfusion defects. Gated imaging demonstrates normal global and regional LV systolic function. LVEF is calculated at 64%. Electronically signed by : Leann Amin MD 05/15/2024 12:38:18
[2024-05-15] MEDS: REGADENOSON 0.4MG/5ML SYRINGE 0.4 MG IV (10:56)
[2024-05-15] MEDS: ISOTOPE MYOVIEW (PER STUDY) 1 DOSE IV (10:56)
[2024-05-15] MEDS: SODIUM CHLORIDE 0.9% 10ML SYR (RAD ONLY) 10 ML IV ×2 (10:56→10:57)
== END 2024-05-15 23:59 | disposition home or self-care (01) ==
LOC: RAD 07:53
PROVIDERS: PCP Family Medicine; Visit Provider Physician Assistant
DX: R07.9 Chest pain, unspecified (principal); I10 Essential (primary) hypertension; E78.49 Other hyperlipidemia; R94.31 Abnormal electrocardiogram [ECG] [EKG]; Z82.49 Family history of ischemic heart disease and other diseases of the circulatory system; R06.00 Dyspnea, unspecified; R07.89 Other chest pain
CPT/HCPCS: 78452; 93017; 93018; 93306; A9502; J2785

== ENCOUNTER 2024-06-14 12:35 | Emergency (ER) | payer MEDICARE, SELFPAY ==
[2024-06-14 12:55] VITALS: BP 136/77; PULSE 82; RESP 19; TEMP 36.7; O2SAT 100; BMI 28.8
--- NOTE | 2024-06-14 13:17 | EXP.UTC ---
Discharge Plan Disposition Patient Disposition: Home, Self-Care Condition: Good Prescriptions Prescriptions: New doxycycline hyclate 100 mg capsule 100 mg PO BID 7 Days Qty: 14 0RF prednisone 10 mg tablets,dose pack 10 mg PO DIRECTED Qty: 21 0RF Rx Instructions: see taper instructions fluconazole 100 mg tablet 100 mg PO DAILY Qty: 11 0RF Rx Instructions: Take 2 tabs the first day and then one tablet a day for the next 9 days. No Action aspirin [Adult Low Dose Aspirin] 81 mg tablet,delayed release (DR/EC) 81 mg PO DAILY Qty: 30 2RF amlodipine 5 mg tablet 10 mg PO DAILY Referrals Follow up/Referrals: Provider,Referral, MD [Primary Care Provider] - See instructions Activity Restrictions/Add. Instructions Additional Instructions/Restrictions: Take medication as prescribed. Increase fluids and rest. Follow up with PCP if symptoms persist or worsen. Clinical Impressions Clinical Impression: Candidiasis of mouth Sinusitis Qualifiers: Sinusitis location: maxillary Chronicity: acute Recurrence: non-recurrent Qualified Code(s): J01.00 - Acute maxillary sinusitis, unspecified Instructions Patient Instructions: DI for Sinusitis, Thrush-Adult Print Language Print Language: Romanian Discharge ED Provider: Raine Villegas [facility] General Stated complaint: sore throat, sinus pressure Mode of Arrival: Ambulatory Source of Information: Patient Limitations: No Limitations Time Seen by Provider: 06/14/24 13:16 Description of Symptoms (Recalled from Triage Doc. by RN): PATIENT C/O SINUS PRESSURE AND POSSIBLE THRUSH THAT STARTED THIS WEEK HEENT Symptoms (Recalled from RN notes): Yes Resp Symptoms (Recalled from RN notes): No Skin Symptoms (Recalled from RN notes): No MS Symptoms (Recalled from RN notes): No Functional Status (Recalled from RN notes): WNL History of Present Illness Provider Complaint: Pt reports that she has had a white coating on her tongue and her grandchildren have had thrush. She states that she has had right sided sinus pressure and pain with frequent bloody noses and upper teeth pain. Related Data Home Medications ?Medication ?Instructions ?Recorded ?Confirmed amlodipine 5 mg tablet 10 mg PO DAILY 05/06/24 06/14/24 Previous Rx's ?Medication ?Instructions ?Recorded aspirin 81 mg tablet,delayed 81 mg PO DAILY #30 tabs 05/06/24 release (Adult Low Dose Aspirin) doxycycline hyclate 100 mg capsule 100 mg PO BID 7 days #14 caps 06/14/24 fluconazole 100 mg tablet 100 mg PO DAILY #11 tabs 06/14/24 prednisone 10 mg tablets in a dose 10 mg PO DIRECTED #21 tabs 06/14/24 pack Allergies Allergy/AdvReac Type Severity Reaction Status Date / Time Zglyafv-[id number] Reductase AdvReac Weakness Verified 06/11/24 14:24 Inhibitor Worker's Comp Is this a Worker's Comp case?: No [facility] Disclaimer: The information contained in this section may have been updated after the patient was seen, as this information can be updated by other users. Medical History Hx of breast cancer Anxiety Hyperlipidemia Hypertension Surgical History History of appendectomy History of tubal ligation History of lumpectomy of right breast Social History Smoking Status: Former smoker alcohol intake: never current occupational status: other Travel in the last 8 weeks: None Have you lived/traveled outside [place] in past 30 days?: No Contact w/someone who lives/traveled outside [place] past 30 days?: No Exposure to someone with infectious disease in past 14 days?: No Do you have a fever (greater than 100.4 F or 38 C)?: No Have you tested positive for COVID-19: No Exposed to someone with COVID-19 in past 14 days?: No Do you have a sore throat?: No Do you have a cough?: No Do you have any weakness?: No Do you have any diarrhea?: No Are you experiencing any unusual bleeding?: No Do you have any muscle aches/pain?: No Do you have any abdominal pain?: No Are you experiencing loss of taste or smell?: No ROS Obtained: Yes All systems reviewed & no additional complaints except as documented Constitutional Constitutional: Reports system reviewed and no additional complaints, except as documented Eyes Eyes: Reports system reviewed and no additional complaints, except as documented ENT Ears, Nose, Mouth, and Throat: Reports system reviewed and no additional complaints, except as documented, Reports dry mouth, Reports facial pain, Reports nasal congestion, Reports nasal discharge and Reports sore throat Cardiovascular Cardiovascular: Reports system reviewed and no additional complaints, except as documented Respiratory Respiratory: Reports system reviewed and no additional complaints, except as documented Gastrointestinal Gastrointestingal: Reports system reviewed and no additional complaints, except as documented Genitourinary Female Genitourinary: Reports system reviewed and no additional complaints, except as documented Musculoskeletal Musculoskeletal: Reports system reviewed and no additional complaints, except as documented Integumentary/Breasts Skin/Breast: Reports system reviewed and no additional complaints, except as documented Neurologic Neurologic: Reports system reviewed and no additional complaints, except as documented Endocrine Endocrine: Reports system reviewed and no additional complaints, except as documented Hematologic/Lymphatic Henatologic/Lymphatic: Reports system reviewed and no additional complaints, except as documented Allergic/Immunologic Allergic/Immunologic: Reports system reviewed and no additional complaints, except as documented Physical Exam General General appearance: alert and in no apparent distress Head Head exam: atraumatic and normocephalic Eye Eye exam: Present normal appearance Expanded ENT Exam External ear exam: Present normal external inspection Nose exam: Present sinus tenderness (right maxillary swelling and tenderness noted) Nasal speculum exam: Bilateral: epistaxis Mouth exam: Present other (white coating on tongue) Teeth exam: Present normal inspection Throat exam: Present tonsillar erythema Neck Neck exam: Present normal inspection Chest Chest inspection: Present normal inspection and symmetric chest wall rise Respiratory Respiratory exam: Present normal lung sounds bilaterally Cardiovascular Cardiovascular exam: Present regular rate and normal rhythm Abdominal Exam Abdominal exam: Present soft Extremities Exam Extremities exam: Present normal inspection Back Exam Back exam: Present normal inspection Neurological Exam Neurological exam: Present alert and oriented X3 Psychiatric Psychiatric exam: Present normal affect and normal mood Skin Skin exam: Present warm, dry and intact Lymphatic Lymphatic Findings: no adenopathy Medical Decision Making Medical Records Screening: Per USPSTF and CDC recommendations, given the prevalence of disease in our region, it is our hospital?s policy to screen for HIV and viral Hepatitis for all patients aged 18 and over and those with ongoing risk factors. Saad Inquiry Pt receiving controlled substance: No Saad was queried for this patient: No Vital Signs: 06/14/24 12:55 Temperature 98.1 F Temperature Source Oral Pulse Rate [Left Brachial] 82 Respiratory Rate 19 Blood Pressure [Left Arm] 136/77 Blood Pressure Mean [Left Arm] 96 Blood Pressure Source [Left Arm] Automatic Cuff Blood Pressure Position [Left Arm] Sitting 02 Sat by Pulse Oximetry 100 Oxygen Delivery Method Room Air
[2024-06-14 13:35] VITALS: BP 136/77; PULSE 82; RESP 19; TEMP 36.7; O2SAT 100
== END 2024-06-14 13:39 | disposition home or self-care (01) ==
PROVIDERS: Emergency Provider Nurse Practitioner Family
DX: B37.0 Candidal stomatitis (principal); J01.00 Acute maxillary sinusitis, unspecified; R07.0 Pain in throat; R09.81 Nasal congestion; R68.2 Dry mouth, unspecified
CPT/HCPCS: 99212; G0381

== ENCOUNTER 2025-01-10 16:45 | Outpatient (CLI) | payer MEDICARE, SELFPAY ==
--- OUTSIDE RECORDS SUMMARY | 2025-01-02 09:00 | XMS_ITS | Encounter Summary ---
Author Organization Healthcare Address [address] [id number] Care Team Providers Care Branch Account Manager Name Role Phone Nicki Thomas MD Primary Care Provider [phone] Reji Gonsales MD Unavailable [phone] Reason for Visit * Reason Comments [...] Description 01/02/2025 9:00 AM EDT Office Visit [facility] [address] [place] [address] Zenia Worthy, IRON WORKER, DNP [address] [place] [address] ETD (Eustachian tube dysfunction), left [...] How often do you attend chur or adventist services? Never 12/07/2023 Do you belong to any clubs o r organizations such as uatsdin groups, unions, fraternal or athletic groups, or [...] place to sleep or slept in a mcfp (including now)? No 12/07/2023 PHQ-9 Answer Date [...] declined 01/02/2025 How often do you attend uatsdin or adventist serv ices? Patient declined 01/02/2025 Do you belong to any clubs o r organizations such as uatsdin groups, unions, fraternal or athletic groups, or [...] drinks on one occasion? Patient declined [facility] - Occupational Stress Questionnaire Answer Date Recorded [...] any time in the past 12 m [facility], were you homeless or living in a mcfp (including now)? No 01/02/2025 Safety and Environment [...] Month) No 01/02/2025 9:22 AM EDT Barbara iPna 6. Suicidal Behavior (Lifetime) No 9:22 AM EDT Barbara Pina documented as of this encounter Miscellaneous Notes * Progress Notes - Zenia Worthy, IRON WORKER, DNP - 01/02/2025 9:00 AM EDT Subjective [...] Session: Patient declined Stress: Patient Declined (01/02/2025) [employer] [place] [facility] [employer] - Occupational Stress Questionnaire Feeling of Stress: Patient declined Social Connections: Patient Declined (01/02/2025) Social Connection and Isolation Panel Frequency of Communication with Friends and Family: Patient declined Frequency of Social Gatherings with Friends and Family: Patient declined Attends Protestant Services: Patient declined Active Member of Clubs [...] Date Due [facility]-Hepatitis C Screening Never done [facility]-[id number]-14 Vaccine (1) Never done [facility]- SDOH Screenings [...] Procedure Laterality Date APPENDECTOMY N/A Appendectomy from [facility] APPENDECTOMY N/A Appendectomy from [facility] BREAST LUMPECTOMY Right 2019 [facility] ELBOW SURGERY N/A [facility] ELBOW SURGERY N/A Elbow surgery from [facility] TUBAL LIGATION N/A [facility] [4] Current Outpatient Medications on File Prior [...] Description 01/30/2025 1:00 PM EDT Office Visit [facility] [address] [place] [address] Nicki Thomas MD [address] [place] [address] 04/06/2025 11:00 AM EST Clinical Support [facility] Laboratory Services [address] [facility], 1st [place] [address] 04/20/2025 3:00 PM EST Appointment [facility] Bone & Mineral Metabolism [address] [facility], [address] [place] [address] 04/20/2025 3:20 PM EST Office Visit [facility] Bone & Mineral Metabolism [address] [facility], [address] [place] [address] Teri Jose, GREY [address] [facility] [address] [place] [address] 10/26/2025 1:00 PM EDT Appointment [facility] Breast [facility] Comprehensive Breast Care Center [address] [address] Lizzette Khoury [facility] [address] [place] [address] 10/26/2025 2:30 PM EDT Office Visit [facility] Breast Care Center [address] [facility], [address]nd [place] [address] Michaela Lloyd, IRON WORKER [address] [facility] [address] [place] [address] documented as of this encounter Procedures Procedure Name Priority Date/Time Associated Diagnosis Comments COMPREHENSIVE METABOLIC PANEL, PLASMA Routine 01/02/2025 9:50 AM EDT Muscle cramps documented in this encounter Results * Comprehensive Metabolic Panel, Plasma (01/02/2025 9:50 AM EDT) Glucose, Plasma 87 74 - 99 mg/dL 01/02/2025 3:09 PM EDT [facility] BUN, Plasma 11 8 - 23 mg/dL 01/02/2025 3:09 PM EDT [facility] Creatinine, Plasma 0.65 0.60 - 1.10 mg/dL 01/02/2025 3:09 PM EDT [facility] BUN/Creatinine Ratio 17 01/02/2025 3:09 PM EDT [facility] Sodium, Plasma 143 136 - 145 mmol/L 01/02/2025 3:09 PM EDT [facility] Potassium, Plasma 3.8 3.6 - 4.9 mmol/L 01/02/2025 3:09 PM EDT [facility] Chloride, Plasma 106 97 - 107 mmol/L 01/02/2025 3:09 PM EDT [facility] CO2, Plasma 24 22 - 29 mmol/L 01/02/2025 3:09 PM EDT [facility] Anion Gap 13 6 - 16 mmol/L 01/02/2025 3:09 PM EDT [facility] Total Calcium, Plasma 9.2 8.9 - 10.2 mg/dL 01/02/2025 3:09 PM EDT [facility] Total Protein 7.6 6.3 - 7.9 g/dL 01/02/2025 3:09 PM EDT [facility] Albumin, Plasma 4.6 3.5 - 5.2 g/dL 01/02/2025 3:09 PM EDT [facility] AST, Plasma 24 10 - 35 U/L 01/02/2025 3:09 PM EDT [facility] ALT, Plasma 28 10 - 35 U/L 01/02/2025 3:09 PM EDT [facility] Alkaline Phosphatase, Plasma 88 46 - 142 U/L 01/02/2025 3:09 PM EDT [facility] Total Bilirubin, Plasma 0.5 0.2 - 1.1 mg/dL 01/02/2025 3:09 PM EDT [facility] eGFRcr 96.0 mL/min/1.7 3m*2 01/02/2025 3:09 PM EDT [facility] Comment:Reported eGFRcr in m L/min/1.73m2 is based the CKD-EPI 2020 equation that does not use a race coefficient. Blood Venous blood specimen / Unknown Venipuncture / Unknown 01/02/2025 9:50 AM EDT 01/02/2025 9:50 AM EDT us Zenia Worthy IRON WORKER, DNP LAB BLOOD ORDERABLES Final Result [facility] [address] [place] [address] documented in this encounter Visit Diagnoses Diagnosis [...] documented as of this encounter Care Teams Branch Account Manager Relationship Specialty Start Date End Date Nicki Thomas MD [address] [place] [address] PCP - General 10/08/20 Reji Gonsales MD [address] [facility] [address] [place] [address] Consulting Physician Radiation Oncology 08/02/21 documented as of this encounter
--- OUTSIDE RECORDS SUMMARY | 2025-01-12 11:26 | XMS_ITS | Encounter Summary ---
Author Organization Healthcare Address [address] [id number] Care Team Providers Care Chemical Equipment Sales Engineer Name Role Phone Nicki Thomas MD Primary Care Provider [phone] Reji Gonsales MD Unavailable [phone] Andrey Cordon Unavailable Unavailable Cherise Hart LPN Unavailable Unavailabl e Reason for Visit * Reason Comments Med Refill Encounter Details Date Type Department Care Team (Late Contact Info) Description 07/05/2022 Refill Family and Community Medicine [address] [place] [address] Marina Elizabeth, CELL TUBER MACHINE [address] [place] [address] Sprain of temporomandibular joint, initial encounter Social History Tobacco Use Types Packs/Day Years Used Date Smoking Tobacco: Former Cigarettes 0.3 15 1 983 - 1998 Smokeless Tobacco: Never Alcohol Use Standard Drinks/Week Comments Not Currently 0 (1 standard drink = 0.6 oz pur e alcohol) h/o social use PHQ-2 Answer Date Recorded Patient Health Questionnaire-2 Score 0 05/31/2022 Comments No Sex and Gender Information Value Date Recorded Sex Assigned at Not on file Legal Sex Female 6:13 PM EDT Gender Identity Not on file Sexual Orientation Not on file documented as of this encounter Plan of Treatment Upcoming Encounters Date Type Department Care Team (Late Contact Info) Description 01/30/2025 1:00 PM EDT Office Visit [facility] Community Medicine [address] [place] [address] Nicki Thomas MD [address] [place] [address] 04/06/2025 11:00 AM EST Clinical Support [facility] Laboratory Services [address], 1st [place] [address] 04/20/2025 3:00 PM EST Appointment [facility] Bone & Mineral Metabolism [address] [facility] [place] [address] 04/20/2025 3:20 PM EST Office Visit [facility] Bone & Mineral Metabolism [address] [facility] [place] [address] Teri Jose PA [address] [place] [address] 10/26/2025 1:00 PM EDT Appointment [facility] Breast [facility] Comprehensive Breast Care Center [address] [place] [address] 10/26/2025 2:30 PM EDT Office Visit [facility] Breast Care [place] [address] 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, tickborne typhus fever) 12/26/2021 12/26/2021 11/30/2022 3:11 PM E DT Assessment Noted Time A fall risk assessment has been complete d for the patient 05/31/2022 1:03 PM EST documented as of this encounter Care Teams Chemical Equipment Sales Engineer Relationship Specialty Start Date End Date Nicki Thomas MD [address] [place] [address] PCP - General 10/08/20 Reji Gonsales MD [address] [facility] [address] [place] [address] Consulting Physician Radiation Oncology 08/02/21 Andrey Cordon [address] [address] Community Health Worker 10/29/23 11/05/23 Cherise Hart LPN VALUE-BASED TRANSFORMATION PROGRAM TCM Nurse 12/05/23 01/04/24 documented as of this encounter
--- OUTSIDE RECORDS SUMMARY | 2025-01-12 11:27 | XMS_ITS | Clinical Summary ---
Author Organization [facility] Address [address] [place] [address], [address] [place] [address] Care Team Providers Care Director Of Professional Services Name Role Phone System, Referring Not In Primary Care Provider U navailable Social History Tobacco Use Types Packs/Day Years Used Date Smoking Tobacco: Never Assessed Comments Unknown Sex and Gender Information Value Date Recorded Sex Assigned at Not on file Legal Sex Female 1:56 PM EST Gender Identity Not on file Sexual Orientation Not on file Plan of Treatment Not on file Care Teams Director Of Professional Services Relationship Specialty Start Date End Date System, Referring Not In PCP - General 06/14/12
--- OUTSIDE RECORDS SUMMARY | 2025-01-12 11:27 | XMS_ITS | Clinical Summary ---
Author Organization [facility] Address [address] [place] [address] Care Team Providers Care Health Management Consultant Name Role Phone Nicki Thomas MD Primary Care Provider Reji Gonsales MD Unavailable [phone] Allergies Active Allergy Reactions Criticality Noted Date Comments Ezetimibe Other - please docum ent in the comment field Low 01/24/2024 Joint pains Statins Other - please docum ent in the comment field Low 01/04/2023 Makes her sick and heaviness in her legs, nightmares Medications aspirin 325 MG EC tablet Take 1 tablet (325 mg) by mouth 2 (two) times a day. Active albuterol 108 (90 Base) MCG/ACT inhalerIndicatio ns:Acute bronchitis due to other specified organisms Inhale 2 puffs every 6 (six) hours if needed for wheezing. 18 g 11 2 Active valACYclovir (Valtrex) 1 g tablet Take 1 tablet (1,000 mg) by mouth 2 (two) times a day. 30 tablet 3 3 Active ketoconazole (NIZOral) 2 % cream Apply 1 Application topically 2 (two) times a day. 4 Active diazePAM (Valium) 2 MG tabletIndication s:Meniere's disease of right ear TAKE 1 TABLET BY MOUTH THREE TIMES A DAY NEEDED 90 tablet 3 4 Active cyclobenzaprine (Flexeril) 5 MG tabletIndication s:Acute back pain, unspecified back location, unspecified back pain laterality,Acute pain of right shoulder Take 1 tablet (5 mg) by mouth 2 (two) times a day if needed for muscle spasms. 30 tablet 4 Active omega-3 (Fish Oil) 1000 MG capsule Take 1 capsule (1,000 mg) by mouth 1 (one) time each day. 90 capsule 2 4 Active cholecalciferol (Vitamin D3) 25 MCG (1000 UT) tablet Take 1 tablet (1,000 Units) by mouth 1 (one) time each day. 90 tablet 2 4 Active alpha tocopherol (Vitamin E) 400 units capsule Take 1 capsule (400 Units) by mouth 1 (one) time each day. 90 capsule 2 4 Active Calcium & Magnesium Carbonates 975-232 MG tablet Take 1 tablet by mouth 1 (one) time each day. 90 tablet 2 4 Active Calcium-Magnesiu m 500-250 MG tablet TAKE 1 TABLET BY MOUTH DAILY. 90 tablet 3 4 Active ibuprofen 800 MG tabletIndication s:Chronic bilateral low back pain with left-sided sciatica Take 1 tablet (800 mg) by mouth 1 (one) time each day if needed for moderate pain. 90 tablet 3 5 Active pantoprazole (Protonix) 20 MG EC tabletIndication s:Gastroesophage al reflux disease with esophagitis, unspecified whether hemorrhage,Nause a Take 1 tablet (20 mg) by mouth daily before breakfast. Do not crush, chew, or split. 90 tablet 2 5 Active metoprolol succinate XL (Toprol-XL) 25 MG 24 hr tabletIndication s:Essential (primary) hypertension Take 1 tablet (25 mg) by mouth daily. Do not crush or chew. 30 tablet 2 5 Active Additional Information Patient taking differently:25 mg OralAs needed, PRN., Reported on 01/02/2025 amLODIPine (Norvasc) 5 MG tabletIndication s:Essential (primary) hypertension Take 1 tablet (5 mg) by mouth daily. 30 tablet 5 5 025 Active fluticasone (Flonase) 50 MCG/ACT nasal sprayIndications :Allergic rhinitis, unspecified seasonality, unspecified trigger Administer 1 spray into each nostril daily. Shake gently. Before first use, prime pump. After use, clean tip and replace cap. 48 g 5 Active potassium chloride CR (K-Tab) 20 MEQ ER tablet Take 1 tablet by mouth daily. Do not crush, chew, or split. 90 tablet 1 5 Active predniSONE (Deltasone) 20 MG tabletIndication s:ETD (Eustachian tube dysfunction), left,Pain of left sacroiliac joint Take 2 tablets by mouth daily for 5 days. 10 tablet 5 025 meclizine (Antivert) 25 MG tabletIndication s:Vertigo Take 1 tablet by mouth 3 times a day as needed for dizziness for up to 7 days. 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 Shortness of breath 02/22/2021 Gastroesophageal reflux dise ase with esophagitis without hemorrhage 02/22/2021 Malignant neoplasm of overla pping sites of right breast in female, estrogen receptor positive 01/17/2021 Cancer Staging:Clinical stage from 07/26/2018:Stage IA(T1c, N0, M0) - Unsigned Magnesium deficiency 09/17/2020 Potassium deficiency 09/17/2020 HSV infection 02/19/2020 Snoring 07/09/2019 Asymmetric SNHL (sensorineural hearing loss) 04/2019 Sensorineural hearing loss ( SNHL) of right ear with unrestricted hearing of left ear 05/08/2019 Primary malignant neoplasm of breast 10/14/2018 Overview (02/22/2021): Malignant neoplasm of central portion of right female breast Anxiety 08/16/2018 HLD (hyperlipidemia) 07/30/2018 Essential (primary) hypertension 07/19/2018 Meniere disease 07/19/2018 Multilevel degenerative disc disease 04/11/2016 Neck pain 04/11/2016 Protrusion of cervical intervertebral disc 04/11 Spinal stenosis of cervical region 04/11/2016 Encounters Date Type Department Care Team Description 01/07/2025 Telephone [facility] [address] [place] [address] Nicki Thomas MD [facility] Clinical Concern/Question (Possible UTI) 01/05/2025 Results Follow-Up [facility] [address] [place] [address] Zenia Worthy APRN, KEARA 01/02/2025 9:00 AM EDT Office Visit [facility] [address] [place] [address] Zenia Worthy APRN, KEARA ETD (Eustachian tube dysfunction), left (Primary Dx); Pain of left sacroiliac joint; Vertigo; Muscle cramps 01/02/2025 Travel 10/31/2024 Refill [facility] [address] [place] [address] Nicki Thomas MD Allergic rhinitis, unspecified seasonality, unspecified trigger 10/17/2024 11:00 AM EDT Office Visit [facility] Endocr[facility]ology [address] [place] [phone] Spencer Leonard MD Thyroid nodule (Primary Dx) 10/17/2024 Orders Only External Location [address] [place] [address] Provider, External 10/17/2024 Travel 10/15/2024 3:30 PM EDT Office Visit [facility] [address], [address]nd [place] [address] Michaela Lloyd, BULK MAIL TECHNICIAN Encounter for screening mammogram for breast cancer (Primary Dx) 10/15/2024 2:40 PM EDT - 10/15/2024 11:59 PM EDT Hospital Encounter [facility] [place] [address] [address] [address] Encounter for screening mammogram for breast cancer Discharge Disposition: Home or Self Care 10/15/2024 Travel from Last 3 Months Immunizations Immunization Administration Dates Next Due Influenza, injectable, quadrivalent, preservativ e free 02/19/2020 Family History Medical History Relation Name Comments Breast cancer Maternal Grandmother Conversions - Other Maternal Grandmother malignant neoplasm of female breast Breast cancer Mother Conversions - Other Mother malignan t neoplasm of female breast Relation Name Status Comments Maternal Grandmother Mother Social History Tobacco Use Types Packs/Day Years Used Date Smoking Tobacco: Former Cigarettes 0.3 15 1 983 - 1997 Passive Smoke Exposure: Past Smokeless Tobacco: Never [...] 12/07/2023 How often do you attend chur ch or yazidi services? Never 12/07/2023 Do you belong to any clubs o r organizations such as mandaeism groups, unions, fraternal or athletic groups, or [...] place to sleep or slept in a longterm (including now)? No 12/07/2023 PHQ-9 Answer Date [...] declined 01/02/2025 How often do you attend mandaeism or yazidi serv ices? Patient declined 01/02/2025 Do you belong to any clubs o r organizations such as mandaeism groups, unions, fraternal or athletic groups, or [...] drinks on one occasion? Patient declined 01/02/2025 [facility] - Occupational Stress Questionnaire Answer Date [...] any time in the past 12 m [facility], were you homeless or living in a longterm (including now)? No 01/02/2025 Safety and Environment [...] Recorded In the past 12 months has e electric, gas, oil, or water [employer] threatened to shut off services in your home? No 01/02/2025 PHQ-2A Answer Date Recorded Patient Health Questionnaire-2 Score 0 05/04/2023 Comments No Sex and Gender Information Value Date Recorded Sex Assigned at Not on file Legal Sex Female 6:13 PM EDT Gender Identity Not on file Sexual Orientation Not on file Last Filed Vital Signs Vital Sign Reading [...] Mass Index 28.12 01/02/2025 9:17 AM EDT Plan of Treatment Upcoming Encounters Date Type Department Care Team (Late st Contact Info) Description 01/30/2025 1:00 PM EDT Office Visit [facility] Medicine [address] [place] [address] Nicki Thomas MD [address] [place] [address] 04/06/2025 11:00 AM EST Clinical Support Professional [facility] Laboratory Services [address] [place] [address] 04/20/2025 3:00 PM EST Appointment Professional [facility] Mineral Metabolism [address], [address] [place] [address] 04/20/2025 3:20 PM EST Office [facility] [address], [address] [place] [address] Teri Jose, PA [address] [facility] [address] [place] [address] 10/26/2025 1:00 PM EDT Appointment [facility] Mahsa Khoury Building [address] [place] [address] 10/26/2025 2:30 PM EDT Office Visit [facility] [address], [address] [place] [address] Michaela Lloyd, BULK MAIL TECHNICIAN [address] Lizzette Khoury [address] [place] [address] Health Maintenance Due Date Last Done Comments [facility]-Hepatitis C Screening 1956 [id number] Vaccine (#1) 1961 [facility]-DTaP,Tdap,and Td Vaccines (1 - Tdap) 1975 [facility]-Pneumococcal Vaccine: 50+ Years (1 of 2 - PCV) 1975 [facility]-Zoster Vaccines (1 of 2) 1975 CT Colonography 2001 Colonoscopy 2001 FIT 2001 FOBT 2001 Sigmoidoscopy 2001 [facility]-RSV Vaccine: 60+ Years or (1 - Risk 60-74 years 1-dose series) 2016 [facility]-Medicare Annual Wellness (AWV) 12/12/2024 12/13/2023, 01/11/2022 [facility]-Influenza Vaccine (#1) 2025 02/19/2020 [facility]-Bone Density Scan 04/14/2025 04/14/2024 , 04/10/2023, 04/10/2022, Additional history exists [facility]- SDOH Screenings 07/05/2025 [facility]-Adult SDOH Screenings 07/05/2025 01/02/2025 [facility]-Infant/Child/Adol SDOH Screenings 07/05/2025 01/02/2025 FIT-DNA 09/08/2025 09/08/2022, 07/29/2019 [facility]-Colorectal Cancer Screening 09/08/2025 [facility]-Depression Screening 10/17/2025 10/17/2024, 09/26 [facility]-Cervical Cancer Screening Discontinued [facility]-HPV/Cotest Discontinued 01/11/2022, 01/11/2022 [facility]-Pap Smear Discontinued 01/11/2022 [facility]-Diabetes: Hemoglobin A1C Discontinued 10/29/2023, 08/17/2022, 01/11/2022, Additional history exists [facility]-Obesity Intervention Completed 025, 09/30/2024, 09/09/2024, Additional history exists HPV Vaccines Aged Out No longer eligi ble based on patient's age to complete this topic [facility]-HIB Vaccines Aged Out No longer e ligible based on patient's age to complete this topic [facility]-Hepatitis A Vaccines Aged Out No longer eligible based on patient's age to complete this topic [facility]-IPV Vaccines Aged Out No longer e ligible based on patient's age to complete this topic [facility]-Rotavirus Vaccines Aged Out No lo nger eligible based on patient's age to complete this topic Procedures Procedure Name Priority Date/Time Associated Diagnosis Comments COMPREHENSIVE METABOLIC PANEL, PLASMA Routine 01/02/2025 9:50 AM EDT Muscle cramps POC ULTRASOUND 10/17/2024 MAMMOGRAPHY BREAST SCREENING TOMOSYNTHESIS BILATERAL Routine 10/15/2024 3:44 PM EDT Encounter for screening mammogram for breast cancer DEXA BONE DENSITY Routine 04/14/2024 2:4 4 PM EST Age-related osteoporosis without current pathological fracture HEMOGLOBIN A1C Routine 10/29/2023 9:52 AM EDT Routine general medical examination at a health care facility LAB COLOGUARD COLON CANCER SCREEN Routine 09/08/2022 9:40 AM EDT Screen for colon cancer PAP TEST - CYTOLOGY Routine 01/11/2022 1 0:42 AM EDT Encounter for Pap smear of cervix with HPV DNA cotesting from Last 3 Months or Most Recently Relevant to Health Maintenance Results * Comprehensive Metabolic Panel, Plasma (01/02/2025 9:50 AM EDT) Glucose, Plasma 87 74 - 99 mg/dL 01/02/2025 3:09 PM EDT [facility] BUN, Plasma 11 8 - 23 mg/dL 01/02/2025 3:09 PM EDT [facility] Creatinine, Plasma 0.65 0.60 - 1.10 mg/dL 01/02/2025 3:09 PM EDT [facility] BUN/Creatinine Ratio 17 01/02/2025 3:09 PM EDT [facility] Sodium, Plasma 143 136 - 145 mmol/L 01/02/2025 3:09 PM EDT [facility] Potassium, Plasma 3.8 3.6 - 4.9 mmol/L 01/02/2025 3:09 PM EDT [facility] Chloride, Plasma 106 97 - 107 mmol/L 01/02/2025 3:09 PM EDT [facility] CO2, Plasma 24 22 - 29 mmol/L 01/02/2025 3:09 PM EDT [facility] Anion Gap 13 6 - 16 mmol/L 01/02/2025 3:09 PM EDT [facility] Total Calcium, Plasma 9.2 8.9 - 10.2 mg/dL 01/02/2025 3:09 PM EDT [facility] Total Protein 7.6 6.3 - 7.9 g/dL 01/02/2025 3:09 PM EDT [facility] Albumin, Plasma 4.6 3.5 - 5.2 g/dL 01/02/2025 3:09 PM EDT [facility] AST, Plasma 24 10 - 35 U/L 01/02/2025 3:09 PM EDT [facility] ALT, Plasma 28 10 - 35 U/L 01/02/2025 3:09 PM EDT [facility] Alkaline Phosphatase, Plasma 88 46 - 142 U/L 01/02/2025 3:09 PM EDT [facility] Total Bilirubin, Plasma 0.5 0.2 - 1.1 mg/dL 01/02/2025 3:09 PM EDT [facility] eGFRcr 96.0 mL/min/1.7 3m*2 01/02/2025 3:09 PM EDT [facility] Comment:Reported eGFRcr in m L/min/1.73m2 is based the CKD-EPI 2020 equation that does not use a race coefficient. Blood Venous blood specimen / Unknown Venipuncture / Unknown 01/02/2025 9:50 AM EDT 01/02/2025 9:50 AM EDT us Zenia Worthy BULK MAIL TECHNICIAN, DNP LAB BLOOD ORDERABLES Final Result [facility] [address] [place] [address] * POC Imaging (10/17/2024) Anatomical Region Laterality Modality Pelvis Other 10/17/2024 us External Provider IMG POINT OF CARE ULTRASOUND F inal Result * Mammography Breast Screening Tomosynthesis Bilateral (10/15/2024 3:44 PM EDT) Anatomical Region Laterality Modality Breast Bilateral Mammography Impressions 10/15/2024 4:56 PM EDT No mammographic evidence of malignancy. BI-RADS CATEGORY: Overall: 2 - Benign RECOMMENDATION: - Routine Screening Mammogram in 1 Year. Patient Lifetime Risk Score of Breast Malignancy: A risk score has not been calculated for this patient. This risk assessment is calculated using the Yamileth Risk Assessment model which may underestimate the lifetime risk of breast malignancy. COMMUNICATION: Computer-aided detection (CAD) and tomosynthesis were utilized by the radiologist in the interpretation of this examination. The results and recommendations will be sent to the patient in a printed lay language version of the imaging report. Narrative 10/15/2024 4:56 PM EDT EXAM: Mammography Breast Screening with Tomosynthesis REASON FOR EXAM: Screening Mammogram HISTORY: Patient is 69 y.o. Family medical history includes breast cancer in 2 relatives (maternal grandmother, mother (age of onset: 65)). Hormone history includes other (extamane). Surgical and procedural history include right lumpectomy, 2019 ([facility]); right breast surgery, 2019 ([facility]); and right breast lumpectomy, 2019 ([facility]). Medical history includes breast cancer, 2019 (right breast [facility]); radiation therapy; and chemotherapy. COMPARISON STUDIES: Compared to: 10/04/2021 Mammography Breast Diagnostic Tomosynthesis Bilateral at [facility] 10/09/2022 Mammography Breast Diagnostic Tomosynthesis Bilateral at [facility] 10/15/2023 Mammography Breast Diagnostic Tomosynthesis Bilateral at [facility] BREAST COMPOSITION: The breasts are heterogeneously dense, which may obscure small masses. FINDINGS: There are post-lumpectomy changes present in the right breast. There is no evidence of suspicious masses, calcifications, or other abnormal findings. us Charline Myers MD IMG BI PROCEDURES Final Resul t * Dexa Bone Density (04/14/2024 2:44 PM EST) Anatomical Region Laterality Modality L-spine Radio Fluoroscop y Narrative 04/20/2024 3:32 PM EST [facility] [address] [place] [address] DXA Bone Densitometry Report: [Date of exam] BMD test performed using the [employer] DXA System (analysis version: 14.10) manufactured by [employer]. REFERRING PROVIDER: Dr. Teri Jose, PA CLINICAL INFORMATION: PATIENT NAME: Manju Bird PATIENT AGE: 69 y.o. LEGAL SEX: female RADIOGRAPHIC VIEWS: Sites scanned: AP Spine, HIP Right , and HIP Left COMPARISON STUDY: DXA Axial 2022 FINDINGS: Based on WHO criteria (post-menopausal female) the diagnosis is Osteoporosis The lowest T score is -3.1 in the Right Hip There is Stability compared to prior measurements The presence of arthritic or degenerative joint changes in the spine could artefactually increase measured BMD. TBS: The TBS L1-L4 of 1.155 indicates degraded microarchitecture TREATMENT RECOMMENDATIONS: Measured bone density crosses threshold for treatment of osteoporosis Specific anti-osteoporotic therapy remains indicated given high risk of future fracture Treatment decisions should be based on clinical indications. Suggest general measures to optimize calcium and vitamin D status, fall prevention measures and reduce fracture risk. Consider repeating this study in one year or as clinically indicated to assess bone density change or response to treatment. Teri EDMONDS IMG DXA PROCEDURES Final Resul t * Hemoglobin A1c (10/29/2023 9:52 AM EDT) Hemoglobin A1c 5.4 <5.7 % 10/29/2023 1:20 PM EDT [facility] Blood Venous blood specimen / Unknown Venipuncture / Unknown 10/29/2023 9:52 AM EDT 10/29/2023 9:53 AM EDT Narrative [facility] - 10/29/2023 1:20 PM EDT HA1C Interpretive Data: Diagnosis of Diabetes: Diabetic > or = 6.5% Pre-diabetic 5.7 to 6.4% Non-diabetic < or = 5.6% Glycemic Targets for Type I and Type II Diabetics: Non- Adults <7.0% Adults <6.0% Children and Adolescents <7.5% Source: [place] [employer]. Standards of medical care in diabetes,2017. Diabetes Care.2017:40 (suppl 1):S1-S135. HbA1c assay performed by an ion-exchange chromatography method that is certified traceable to the DCCT. us Zenia Worthy APRN, DNP LAB BLOOD ORDERABLES Final Result [facility] [address] [place] [address] * Cologuard?? colon cancer screening (09/08/2022 9:40 AM EDT) Cologuard Negative Negative 09/16/2022 4:11 AM EDT [facility] (CLIA #:[id number]) Comment: NEGATIVE TEST RESULT. A negative Cologuard result indicates a low likelihood that a colorectal cancer (CRC) or advanced adenoma (adenomatous polyps with more advanced pre-malignant features) is present. The chance that a person with a negative Cologuard test has a colorectal cancer is less than 1 in 1500 (negative predictive value >99.9%) or has an advanced adenoma is less than 5.3% (negative predictive value 94.7%). These data are based on a prospective cross-sectional study of 10,000 individuals at average risk for colorectal cancer who were screened with both Cologuard and colonoscopy. (Abhishek Loya al, N Engl J Med 2014;370(14):4316-7530) The normal value (reference range) for this assay is negative. COLOGUARD RE-SCREENING RECOMMENDATION: Periodic colorectal cancer screening is an important part of preventive healthcare for asymptomatic individuals at average risk for colorectal cancer. Following a negative Cologuard result, the [place] Cancer Society and U.S. Multi-Society Task Force screening guidelines recommend a Cologuard re-screening interval of 3 years. References: [place] [employer] Society Guideline for Colorectal Cancer Screening: https://www.cancer.org/cancer/oytkv-teybil-dxsbgt/qdxqadjld-isnwkuchk-rurttry/ac s-rec ommendations.html.; Adalberto DK, Dannielle CARDOZA, Brett AndersonK, Colorectal Cancer Screening: Recommendations for Physicians and Patients from the U.S. Multi-Society Task Force on Colorectal Cancer Screening , Am J Gastroenterology 2017; 112:0549-7369. TEST DESCRIPTION: Composite algorithmic analysis of stool DNA-biomarkers with hemoglobin immunoassay. Quantitative values of individual biomarkers are not reportable and are not associated with individual biomarker result reference ranges. Cologuard is intended for colorectal cancer screening of adults of either sex, 45 years or older, who are at average-risk for colorectal cancer (CRC). Cologuard has been approved for use by the U.S. FDA. The performance of Cologuard was established in a cross sectional study of average-risk adults aged 50-84. Cologuard performance in patients ages 45 to 49 years was estimated by sub-group analysis of near-age groups. Colonoscopies performed for a positive result may find as the most clinically significant lesion: colorectal cancer [4.0%], advanced adenoma (including sessile serrated polyps greater than or equal to 1cm diameter) [20%] or non- advanced adenoma [31%]; or no colorectal neoplasia [45%]. These estimates are derived from a prospective cross-sectional screening study of 10,000 individuals at average risk for colorectal cancer who were screened with both Cologuard and colonoscopy. (Abhishek Loya al, N Engl J Med 2014;370(14):7452-7893.) Cologuard may produce a false negative or false positive result (no colorectal cancer or precancerous polyp present at colonoscopy follow up). A negative Cologuard test result does not guarantee the absence of CRC or advanced adenoma (pre-cancer). The current Cologuard screening interval is every 3 years. ([place] Cancer Society and U.S. Multi-Society Task Force). Cologuard performance data in a 10,000 patient pivotal study using colonoscopy as the reference method can be accessed at the following location: www.[employer]innamon/results. Additional description of the Cologuard test process, warnings and precautions can be found at www.ApptheGamerd.com. Stool specimen (specimen) 09/08/2022 9:40 AM EDT 09/09/2022 3:47 PM EDT us Nicki Thomas MD LAB MOLECULAR DIAGNOSTICS NAVEEN QUINTANA Final Result [facility] (CLIA #:[id number]) [address] [place] [address], * Pap Test (01/11/2022 10:42 AM EDT) Case Report Cytology Case: [id number] Authorizing Provider: Marina Elizabeth APRN Collected: 01/11/2022 1042 Ordering Location: [facility] Received: 01/11/2022 1042 Medicine First Screen: Leigh Khan Specimen: ThinPrep Pap Test, Liquid-Based Cervical/Vaginal, CERVICAL/VAGINAL 01/20/2022 1:06 PM EDT [facility] Interpretation NEGATIVE FOR INTRAEPITHELIAL LESION OR MALIGNANCY 01/20/2022 1:06 PM EDT [facility] at 1306 EDT Other Findings Atrophy and inflammation (Atrophic Vaginitis) 01/20/2022 1:06 PM EDT [facility] Specimen Adequacy Satisfactory for evaluation; transformation zone component cannot be definitely identified due to the presence of atrophy or other hormonal changes. Slide scanned and imaged by [employer] System with manual review of all selected [place]. 01/20/2022 1:06 PM EDT [facility] Cervical cytology is a screening test primarily for squamous cancers and precursors and has associated false negative and positive results. New technologies such as liquid based sampling may decrease but will not eliminate all false negative results. Regular screening and follow-up of unexplained clinical signs and symptoms are recommended to minimize false negative results. Please see the ASCCP website (www.asccp.org)fo r followup recommendations. If HPV testing was requested, correlation with the results is suggested (please call Microbiology at [phone] for results). 01/20/2022 1:06 PM EDT [facility] LAB Menstrual Status Post-Menopausal 1:06 PM EDT [facility] Contraceptive History Not Applicable 01/20/2022 1:06 PM EDT [facility] Screening Type Routine Screen 2021 1:06 PM EDT [facility] High Risk? No 01/20/2022 1:06 PM EDT [facility] HPV Testing Requested? Request HPV Testing Regardless of Pap Test Findings 01/20/2022 1:06 PM EDT [facility] Previous Cancer History Yes 01/20/2022 1:06 PM EDT [facility] Comment:breast cancer Clinical Information Z12.4 - Encounter for Pap smear of cervix with HPV DNA cotesting [ICD-10-CM] 01/20/2022 1:06 PM EDT [facility] Last Menstrual Period 12/21/2014 01/20/2022 1:06 PM EDT [facility] Swab Vaginal and cervical cytologic material / Unknown Non-blood Collection / Unknown 01/11/2022 10:42 AM EDT 01/11/2022 10:42 AM EDT us Marina Elizabeth APRN LAB CYTOLOGY ORDERABLES Final R esult [facility] [address] [place] [address] from Last 3 Months or Most Recently Relevant to Health Maintenance Insurance MEDICARE Care Teams Health Management Consultant Relationship Specialty Start Date End Date Nicki Thomas MD [address] [place] [phone] PCP - General 10/08/20 Reji Gonsales MD [address] [phone] Consulting Physician Radiation Oncology 08/02/21
--- OUTSIDE RECORDS SUMMARY | 2025-01-12 11:27 | XMS_ITS | Encounter Summary ---
Author Organization Healthcare Address [address] [place] [address] Care Team Providers Care Compliance And Control Analyst Name Role Phone Nicki Thomas MD Primary Care Provider [phone] Reji Gonsales MD Unavailable [phone] Encounter Details Date Type Department Care Team (Late st Contact Info) Description 01/24/2024 Outside Procedure External Location [address] [place] [phone] Nicki Thomas MD [address] [place] [address] Social History Tobacco Use Types Packs/Day Years Used Date Smoking Tobacco: Former Cigarettes 0.3 15 1 983 - 1997 Passive Smoke Exposure: Past Smokeless Tobacco: Never Alcohol Use Standard Drinks/Week Comments Not Currently 0 (1 standard drink = 0.6 oz pur e alcohol) h/o social use Humiliation, Afraid, Rape, and Kick questionnair e Answer Date Recorded Within the last year, have y ou been afraid of your partner or ex-partner? No 12/07/2023 Within the last year, have y ou been humiliated or emotionally abused in other ways by your partner or ex-partner? No Within the last year, have y ou been kicked, hit, slapped, or otherwise physically hurt by your partner or ex-partner? No 12/07/2023 Within the last year, have y ou been raped or forced to have any kind of sexual activity by your partner or ex-partner? No 12/07/2023 Social Connection and Isolation Panel Answer Date Recorded In a typical week, how many times do you talk on the phone with family, friends, or neighbors? More than three times a week 12/07/2023 How often do you get togethe r with friends or relatives? More than three times a week 12/07/2023 How often do you attend chur ch or rastafari services? Never 12/07/2023 Do you belong to any clubs o r organizations such as mu-ism groups, unions, fraternal or athletic groups, or [...] Date Recorded Patient Health Questionnaire-2 Score 0 01/24/2024 [facility] - Occupational Stress Questionnaire Answer Date Recorded Do you feel stress - tense, restless, nervous, or anxious, or unable to sleep at night because your mind is troubled all the time - these days? Very much 12/07/2023 Exercise Vital Sign Answer Date Recorde d On average, how many days pe r week do you engage in moderate to strenuous exercise (like a brisk walk)? 0 days 12/07/2023 On average, how many minutes do you engage in exercise at this level? 0 min 12/07/2023 Hunger Vital Sign Answer Date Recorded Within the past 12 months, y ou worried that your food would run out before you got the money to buy more. Sometimes true Within the past 12 months, t he food you bought just didn't last and you didn't have money to get more. Sometimes true 07/2023 PRAPARE - Transportation Answer Date Re corded In the past 12 months, has l ack of transportation kept you from medical appointments or from getting medications? No 07/2023 In the past 12 months, has l ack of transportation kept you from meetings, work, or from getting things needed for daily living? No 10/29/2023 Housing Stability Vital Sign Answer Kevyn e [...] place to sleep or slept in a chcf (including now)? No 12/07/2023 Safety and Environment Answer Date Saúl rded Do you worry that your child may have been physically abused? Patient unable to answer 12/07/2023 Do you worry that your child may have been sexually abused? Patient unable to answer 12/07/2023 Are there any guns kept in o r around your home or where your child spends time? Patient unable to answer 12/07/2023 Guns Unloaded or Locked Away Not on file 04/2024 Utilities Answer Date Recorded In the past 12 months has th e electric, gas, oil, or water company threatened to shut off services in your home? No 10/29/2023 PHQ-2A Answer Date Recorded Patient Health Questionnaire-2 Score 0 05/04/2023 Comments No Sex and Gender Information Value Date Recorded Sex Assigned at Not on file Legal Sex Female 6:13 PM EDT Gender Identity Not on file Sexual Orientation Not on file documented as of this encounter Functional Status * Over the past 2 weeks, how often have you been bothered by any of the following problems? Question Answer Date of Assessment Author Little interest or pleasure in doing things Not at all 01/24/2024 3:29 PM EDT Jolene Sethi Feeling down, depressed, or hopeless Not at all 12/27 3:29 PM EDT Jolene Sethi Patient Health Questionnaire-2 Score 0 12/27 3:29 PM EDT Jolene Sethi documented as of this encounter Plan of Treatment Upcoming Encounters Date Type Department Care Team (Late st Contact Info) Description 01/30/2025 1:00 PM EDT Office Visit [facility] [address] [place] [address] Nicki Thomas MD [address] [place] [address] 04/06/2025 11:00 AM EST Clinical Support [facility] Laboratory Services [address] [facility], 1st [place] [address] 04/20/2025 3:00 PM EST Appointment [facility] Bone & Mineral Metabolism [address] [facility], [address] [place] [address] 04/20/2025 3:20 PM EST Office Visit [facility] Mineral Metabolism [address] [facility], [address] [place] [address] Teri Jose, GREY [address] [facility] [address] [place] [address] 10/26/2025 1:00 PM EDT Appointment [facility] Breast [facility] Comprehensive [facility] Care Center [facility] [address] [facility] [address] [place] [address] 10/26/2025 2:30 PM EDT Office Visit [facility] [place] [address] [facility], 2nd [place] [address] Michaela Lloyd, CHAIN REPAIRER 800 [facility] [address] [place] [address] documented as of this encounter Procedures Procedure Name Priority Date/Time Associated Diagnosis Comments XR LUMBAR SPINE 2 OR 3 VIEWS 01/24/2024 4:15 PM EDT documented in this encounter Results * XR Lumbar Spine 2 or 3 Views (01/24/2024 4:15 PM EDT) Anatomical Region Laterality Modality Spine, L-spine Digital Radiogra phy 01/24/2024 4:15 PM EDT Narrative 01/27/2024 9:34 [place] [address] Name: CHIQUITA KURTZ Exam Date: 01/24/2024 : 1955 Age 68 years Gender: F Physician: NICKI PACE Facility: [facility] Facility HSV: Outpatient Exam: LUMBAR SPINE 2 TO 3V PROCEDURE: XR LUMBAR SPINE 2-3 VIEWS CLINICAL INDICATION: Fall. COMPARISON: None. TECHNIQUE: 3 views of the lumbar spine. FINDINGS: Bones: Demineralization limits evaluation for subtle fracture. Fivelumbar-type vertebral bodies. Vertebral body heights preserved. No significant degenerative changes. Partially visualized pelvic structures normal. Sacroiliac joints normal. Soft tissues: Visualized soft tissues normal. IMPRESSION: No acute findings.Severe demineralization. Electronically signed by:Balta Monteiro MD01/27/2024 09:31 AM EDT Dictated By: Balta Monteiro Transcribed By: Transcribed On: 01/24/2024 4:59 PM Electronically signed by: Balta Monteiro 01/24/2024 Thank you for referring CHIQUITA KURTZ to [facility]. Legally authenticated by AMANDO SANTIAGO 2024-01-24 16:59:00 Procedure Note Provider, Generic [place] - 01/27/2024 [place] [address] Name: CHIQUITA KURTZ Exam Date: 01/24/2024 : 1955 Age 68 years Gender: F Physician: NICKI PACE Facility: [facility] Facility HSV: Outpatient Exam: LUMBAR SPINE 2 TO 3V PROCEDURE: XR LUMBAR SPINE 2-3 VIEWS CLINICAL INDICATION: Fall. COMPARISON: None. TECHNIQUE: 3 views of the lumbar spine. FINDINGS: Bones: Demineralization limits evaluation for subtle fracture. Fivelumbar-type vertebral bodies. Vertebral body heights preserved. No significant degenerative changes. Partially visualized pelvic structures normal. Sacroiliac joints normal. Soft tissues: Visualized soft tissues normal. IMPRESSION: No acute findings.Severe demineralization. Electronically signed by:Balta Monteiro MD01/27/2024 09:31 AM EDT RP Dictated By: Balta Monteiro Transcribed By: Transcribed On: 01/24/2024 4:59 PM Electronically signed by: Balta Monteiro 01/24/2024 Thank you for referring CHIQUITA KURTZ to [facility]. Legally authenticated by AMANDO SANTIAGO 2024-01-24 16:59:00 Nicki Thomas MD IMG XR PROCEDURES Final Result documented in this encounter Visit Diagnoses Not on filedocumented in this encounter Additional Health Concerns Assessment Noted Time A fall risk assessment has been complete d for the patient 01/24/2024 3:30 PM EDT A Body Mass Index follow-up plan has been documented for the patient 01/24/2024 4:04 PM EDT documented as of this encounter Care Teams Compliance And Control Analyst Relationship Specialty Start Date End Date Nicki Thomas MD [address] [place] [phone] PCP - General 10/08/20 Reji Gonsales MD [address] [place] [phone] Consulting Physician Radiation Oncology 08/02/21 documented as of this encounter
--- OUTSIDE RECORDS SUMMARY | 2025-01-12 11:27 | XMS_ITS | Encounter Summary ---
Author Organization Healthcare Address [address] [id number] Care Team Providers Care Wastewater Process Engineer Name Role Phone Nicki Thomas MD Primary Care Provider [phone] Reji Gonsales MD Unavailable [phone] Reason for Visit * Reason Onset Date Comments HCN Clinical Concern/Question 01/07/2025 Po ssible UTI Encounter Details Date Type Department Care Team (Late st Contact Info) Description 01/07/2025 Telephone [facility] [address] [place] [address] Nicki Thomas MD [address] [place] [address] [facility]CN Clinical Concern/Question (Possible UTI) Social History Tobacco Use Types Packs/Day Years [...] often do you attend chur ch or mormon services? Never 12/07/2023 Do you belong to any clubs o r organizations such as latter-day groups, unions, fraternal or athletic groups, or [...] place to sleep or slept in a long term (including now)? No 12/07/2023 PHQ-9 Answer Date [...] declined 01/02/2025 How often do you attend latter-day or mormon serv ices? Patient declined 01/02/2025 Do you belong to any clubs o r organizations such as latter-day groups, unions, fraternal or athletic groups, or [...] drinks on one occasion? Patient declined 01/02/2025 [facility] - Occupational Stress Questionnaire Answer Date Recorded [...] any time in the past 12 m [facility], were you homeless or living in a long term (including now)? No 01/02/2025 Safety and Environment [...] Recorded In the past 12 months has [employer], gas, oil, or water company threatened to shut off services in your home? No 01/02/2025 PHQ-2A Answer Date Recorded Patient Health Questionnaire-2 Score 0 05/04/2023 Comments No Sex and Gender Information Value Date Recorded Sex Assigned at Not on file Legal Sex Female 6:13 PM EDT Gender Identity Not on file Sexual Orientation Not on file documented as of this encounter Miscellaneous Notes * Telephone Encounter - Tita Stewart - 01/07/2025 2:05 PM EDT Advised would need an appointment in clinic for her UTI symptoms, patient doesn't have a car today and declined appointment, she will go to [facility] * Telephone Encounter - Eliz Renteria - 01/07/2025 1:27 PM EDT Clinical Concern/Question Reason for Call: pt got a [employer] urine test and it turned purple, she thinks she may have an infection. She would like to speak to a nurse to see if antibiotic can be called in Best contact number: [phone] (mobile) Optimal time of day to reach caller: ANYTIME Additional comments/information from caller: None Note: Please do not reply to this message. Follow-up communication and further actions as a result of this message need to be communicated with the patient directly, if the patient is not active onMyChart. If the patient is active on MyChart, they will receive notification of the communication/outcome via MyChart. documented in this encounter Plan of Treatment Upcoming Encounters Date Type Department Care Team ([facility] st Contact Info) Description 01/30/2025 1:00 PM EDT Office Visit [facility] [address] [place] [address] Nicki Thomas MD [address] [place] [address] 04/06/2025 11:00 AM EST Clinical Support [facility] Laboratory Services [address] [facility], 1st [place] [address] 04/20/2025 3:00 PM EST Appointment [facility] Bone & Mineral Metabolism [address] [facility], [address] [place] [address] 04/20/2025 3:20 PM EST Office Visit [facility] Bone & Mineral Metabolism [address] [facility], [address] [place] [address] Teri Jose, GREY [address] [facility] [address] [place] [address] 10/26/2025 1:00 PM EDT Appointment [facility] [address] [place] [address] 10/26/2025 2:30 PM EDT Office Visit [facility] Breast Care Center [address] [facility], 2nd [place] [address] Michaela Lloyd, NURSING SURGICAL SERVICES DIRECTOR [address] [facility] [address] [place] [address] documented as of this encounter Visit Diagnoses Not on filedocumented [...] documented as of this encounter Care Teams Wastewater Process Engineer Relationship Specialty Start Date End Date Nicki Thomas MD [address] [place] [phone] PCP - General 10/08/20 Reji Gonsales MD [address] [id number] [place] [phone] Consulting Physician Radiation Oncology 08/02/21 documented as of this encounter
--- OUTSIDE RECORDS SUMMARY | 2025-01-12 11:27 | XMS_ITS | Encounter Summary ---
Author Organization Healthcare Address [address] [place] [address] Care Team Providers Care Computer Patternmaker Name Role Phone Nicki Thomas MD Primary Care Provider [phone] Reji Gonsales MD Unavailable Encounter Details Date Type Department Care Team (Late st Contact Info) Description 01/05/2025 Results Follow-Up [facility] [address] [place] [address] Zenia Worthy, [employer], DNP [address] [place] [address] Social History Tobacco Use Types Packs/Day [...] often do you attend chur ch or sikh services? Never 12/07/2023 Do you belong to any clubs o r organizations such as sikhism groups, unions, fraternal or athletic groups, or [...] place to sleep or slept in a care home (including now)? No 12/07/2023 PHQ-9 Answer Date [...] declined 01/02/2025 How often do you attend sikhism or sikh serv ices? Patient declined 01/02/2025 Do you belong to any clubs o r organizations such as sikhism groups, unions, fraternal or athletic groups, or [...] drinks on one occasion? Patient declined 01/02/2025 [facility] - Occupational [...] any time in the past 12 m [facility], were you homeless or living in a care home (including now)? No 01/02/2025 Safety and Environment [...] Recorded In the past 12 months has [employer] electric, gas, oil, or water company threatened [...] as of this encounter Miscellaneous Notes * Result Encounter Note - Zenia Worthy APRN, DNP - 01/05/2025 8:30 AM EDT Patients lab was all good. Her potassium was within normal limits. documented in this encounter Plan of Treatment Upcoming Encounters Date Type Department Care Team (Late st Contact Info) Description 01/30/2025 1:00 PM EDT Office Visit [facility] [address] [place] [address] Nicki Thomas MD [address] [place] [address] 04/06/2025 11:00 AM EST Clinical Support [facility] Laboratory Services [address] [facility], 1st [place] [address] 04/20/2025 3:00 PM EST Appointment [facility] Bone & Mineral Metabolism [address] [facility], [address] [place] [address] 04/20/2025 3:20 PM EST Office Visit [facility] Mineral Metabolism [address] [facility], [address] [place] [address] Teri Jose, [place] [address] [place] [address] 10/26/2025 1:00 PM EDT Appointment [facility] [place] [facility] [address] [facility] [address] [place] [address] 10/26/2025 2:30 PM EDT Office Visit [facility] [address] [facility], 2nd [place] [address] Michaela Lloyd, [employer] [address] [facility] [address] [facility] [address] [place] [address] documented as of this encounter [...] documented as of this encounter Care Teams Computer Patternmaker Relationship Specialty Start Date End Date Nicki Thomas MD [address] [place] [phone] PCP - General 10/08/20 Reji Gonsales MD [address] [facility] [address] [place] [address] Consulting Physician Radiation Oncology 08/02/21 documented as of this encounter
--- OUTSIDE RECORDS SUMMARY | 2025-01-12 11:27 | XMS_ITS | Encounter Summary ---
Author Organization Healthcare Address [address] [place] [address] Care Team Providers Care Wall Taper Helper Name Role Phone Nicki Thomas MD Primary Care Provider [phone] Reji Gonsales MD Unavailable Encounter Details Date Type Department Care Team (Late st Contact Info) Description 01/24/2024 Outside Procedure External Location [address] [place] [id number] Nicki Thomas MD [address] [place] [address] Social History Tobacco Use Types Packs/Day [...] often do you attend chur ch or mu-ism services? Never 12/07/2023 Do you belong to any clubs o r organizations such as gnosticist groups, unions, fraternal or athletic groups, or [...] Recorded Patient Health Questionnaire-2 Score 0 01/24/2024 [facility] - Occupational [...] place to sleep or slept in a fci (including now)? No 12/07/2023 Safety and Environment [...] Description 01/30/2025 1:00 PM EDT Office Visit [facility] [address] [place] [address] Nicki Thomas MD [address] [place] [address] 04/06/2025 11:00 AM EST Clinical Support [facility] Laboratory Services [address] [facility], 1st [place] [address] 04/20/2025 3:[address] [facility] Bone & Mineral Metabolism [address] [facility], [address] [place] [address] 04/20/2025 3:20 PM EST Office Visit [facility] Bone & Mineral Metabolism [address] [facility], [address] [place] [address] Teri Jose, GREY [address] [facility] [address] [place] [address] 10/26/2025 1:00 PM EDT Appointment [facility] Breast [facility] [address] [facility] [address] [place] [address] 10/26/2025 2:30 PM EDT Office Visit [facility] Breast Care [place] [address] [facility], 2nd [place] [address] Michaela Lloyd, LAMINATION OPERATOR [address] [facility] [address] [place] [address] documented as of this encounter Procedures Procedure Name Priority Date/Time Associated Diagnosis Comments XR CERVICAL SPINE COMPLETE 4 TO 5 VIEWS 01/24/2024 4:15 PM EDT documented in this encounter Results * XR Cervical Spine Complete 4 To 5 Views (01/24/2024 4:15 PM EDT) Anatomical Region Laterality Modality Spine, C-spine Digital Radiogra phy 01/24/2024 4:15 PM EDT Narrative 01/27/2024 9:38 AM EDT [address] [address] Name: CHIQUITA KURTZ Exam Date: 01/24/2024 : 1955 Age 68 years Gender: F Physician: NICKI PACE Facility: [facility] Facility HSV: Outpatient Exam: CERVICAL SPINE MIN 4V PROCEDURE: XR CERVICAL SPINE 4 VIEWS CLINICAL INDICATION: Fall. COMPARISON: None. TECHNIQUE: 8 views of the cervical spine. FINDINGS: From skull base to C6 vertebral body is visualized on the lateral radiograph. Alignment: Normal. Disc spaces: Severe multilevel degenerative disc space narrowing and osteophytosis. Bones: Vertebral body heights preserved. No acute fracture. Odontoid process intact. Atlanto-axial relationship maintained. Soft tissues: No significant prevertebral soft tissue swelling. IMPRESSION: Severe multilevel disc degeneration. This dictation was performed using voice recognition software and some phonetic and grammatical errors may have been missed in proofreading. Electronically signed by:Balta Monteiro MD01/27/2024 09:34 AM EDT Dictated By: Balta Monteiro Transcribed By: Transcribed On: 01/24/2024 4:59 PM Electronically signed by: Balta Monteiro 01/24/2024 Thank you for referring CHIQUITA KURTZ to [facility]. Legally authenticated by AMANDO SANTIAGO 2024-01-24 16:59:00 Procedure Note Provider, Generic [place] - 01/27/[address] [address] Name: CHIQUITA KURTZ Exam Date: 01/24/2024 : 1955 Age 68 years Gender: F Physician: NICKI PACE Facility: [facility] Facility HSV: Outpatient Exam: CERVICAL SPINE MIN 4V PROCEDURE: XR CERVICAL SPINE 4 VIEWS CLINICAL INDICATION: Fall. COMPARISON: None. TECHNIQUE: 8 views of the cervical spine. FINDINGS: From skull base to C6 vertebral body is visualized on the lateralradiograph. Alignment: Normal. Disc spaces: Severe multilevel degenerative disc space narrowing and osteophytosis. Bones: Vertebral body heights preserved. No acute fracture. Odontoidprocess intact. Atlanto-axial relationship maintained. Soft tissues: No significant prevertebral soft tissue swelling. IMPRESSION: Severe multilevel disc degeneration. This dictation was performed using voice recognition software and some phonetic and grammatical errors may have been missed in proofreading. Electronically signed by:Balta Monteiro MD01/27/2024 09:34 AM EDT Dictated By: Balta Monteiro Transcribed By: Transcribed On: 01/24/2024 4:59 PM Electronically signed by: Balta Monteiro 01/24/2024 Thank you for referring CHIQUITA KURTZ to [facility]. Legally authenticated by AMANDO SANTIAGO 2024-01-24 16:59:00 [...] documented as of this encounter Care Teams Wall Taper Helper Relationship Specialty Start Date End Date Nicki Thomas MD [address] [place] [address] PCP - General 10/08/20 Reji Gonsales MD [address] [facility] [address] [place] [address] Consulting Physician Radiation Oncology 08/02/21 documented as of this encounter
--- OUTSIDE RECORDS SUMMARY | 2025-01-12 11:27 | XMS_ITS | Encounter Summary ---
Author Organization Healthcare Address [address] [id number] Care Team Providers Care Professor Of Astronomy Name Role Phone Nicki Thomas MD Primary Care Provider [phone] Reji Gonsales MD Unavailable [phone] Andrey Cordon Unavailable Unavailable Cherise Hart LPN Unavailable Unavailabl e Reason for Visit * Reason Comments Med Refill Encounter Details Date Type Department Care Team (Late Contact Info) Description 10/11/2022 Refill Family [facility] Community Medicine [address] [place] [address] Marina Elizabeth, SEWING SUPERVISOR [address] [place] [address] Sprain of temporomandibular joint, initial encounter Social History Tobacco Use Types Packs/Day Years Used Date Smoking Tobacco: Former Cigarettes 0.3 15 1 983 - 1998 Smokeless Tobacco: Never Alcohol Use Standard Drinks/Week Comments Not Currently 0 (1 standard drink = 0.6 oz pur e alcohol) h/o social use PHQ-2 Answer Date Recorded Patient Health Questionnaire-2 Score 0 08/17/2022 Comments No Sex and Gender Information Value Date Recorded Sex Assigned at Not on file Legal Sex Female 6:13 PM EDT Gender Identity Not on file Sexual Orientation Not on file documented as of this encounter Plan of Treatment Upcoming Encounters Date Type Department Care Team (Late Contact Info) Description 01/30/2025 1:00 PM EDT Office Visit [facility] Community Medicine 202 [facility] [place] [address] Nicki Thomas MD [address] [place] [address] 04/06/2025 11:00 AM EST Clinical Support [facility] Laboratory Services [address], 1st [place] [address] 04/20/2025 3:00 PM EST Appointment [facility] Bone & Mineral Metabolism [address] [facility], [address] [place] [address] 04/20/2025 3:20 PM EST Office Visit [facility] Bone & Mineral Metabolism [address] [facility], [address] [place] [address] Teri Jose, GREY [address] [place] [address] 10/26/2025 1:00 PM EDT Appointment [facility] Breast [facility] [place] [address] [address] [facility] [address] [place] [address] 10/26/2025 2:30 PM EDT Office Visit [facility] Breast Care [place] [address] [facility], 2nd [place] [address] Michaela Lloyd, SEWING SUPERVISOR 800 [facility] [address] [address] documented as of this encounter Visit Diagnoses Diagnosis Sprain of temporomandibular joint, initial encounter documented in this encounter Additional Health Concerns Infection Onset Date Last Indicated Resolved Time Rickettsial fevers, tickborn e (Eddystone spotted fever, tickborne typhus fever) 12/26/2021 12/26/2021 11/30/2022 3:11 PM E DT Assessment Noted Time A fall risk assessment has been complete d for the patient 10/09/2022 2:05 PM EDT A Body Mass Index follow-up plan has been documented for the patient 08/17/2022 9:25 AM EDT documented as of this encounter Care Teams Professor Of Astronomy Relationship Specialty Start Date End Date Nicki Thomas MD [address] [place] [address] PCP - General 10/08/20 Reji Gonsales MD [address] [facility] [address] [place] [address] Consulting Physician Radiation Oncology 08/02/21 Andrey Cordon [address] [address] Community Health Worker 10/29/23 11/05/23 Cherise Hart LPN VALUE-BASED TRANSFORMATION PROGRAM TCM Nurse 12/05/23 01/04/24 documented as of this encounter
--- OUTSIDE RECORDS SUMMARY | 2025-01-12 11:27 | XMS_ITS | Encounter Summary ---
Author Organization Healthcare Address [address] [place] [address] Care Team Providers Care Miller Wood Flour Name Role Phone Nicki Thomas MD Primary Care Provider [phone] Reji Gonsales MD Unavailable [phone] Encounter Details Date Type Department Care Team (Late st Contact Info) Description 01/24/2024 Outside Procedure External Location [address] [place] [id number] Nicki Thomas MD [address] [place] [address] Social History Tobacco Use Types Packs/Day [...] often do you attend chur ch or scientology services? Never 12/07/2023 Do you belong to any clubs o r organizations such as worship groups, unions, fraternal or athletic groups, or [...] Recorded Patient Health Questionnaire-2 Score 0 01/24/2024 [facility] - Occupational Stress [...] place to sleep or slept in a fpc (including now)? No 12/07/2023 Safety and Environment [...] Description 01/30/2025 1:00 PM EDT Office Visit [facility] [address] [place] [address] Nicki Thomas MD [address] [place] [address] 04/06/2025 11:00 AM EST Clinical Support [facility] Laboratory Services [address] [facility], 1st [place] [address] 04/20/2025 3:00 PM EST Appointment [facility] Bone & Mineral Metabolism [address] [facility], [address] [place] [address] 04/20/2025 3:20 PM EST Office Visit [facility] Bone & Mineral Metabolism [address] [facility], [address] [place] [address] Teri Jose, GREY [address] [facility] [address] [place] [address] 10/26/2025 1:00 PM EDT Appointment [facility] Breast [facility] Center [facility] [address] [facility] 800 [place] [address] 10/26/2025 2:30 PM EDT Office Visit [facility] Breast Care [place] [address] [facility], 2nd [place] [address] Michaela Lloyd, PUTTY MIXER [address] [facility] [address] [place] [address] documented as of this encounter Procedures Procedure Name Priority Date/Time Associated Diagnosis Comments XR THORACIC SPINE 2 VIEWS 01/24/2024 4:15 PM EDT documented in this encounter Results * XR Thoracic Spine 2 Views (01/24/2024 4:15 PM EDT) Anatomical Region Laterality Modality Spine, T-spine Digital Radiogra phy 01/24/2024 4:15 PM EDT Narrative 01/27/2024 9:36 [place] [address] Name: CHIQUITA KURTZ Exam Date: 01/24/2024 : 1955 Age 68 years Gender: F Physician: NICKI PACE Facility: [facility] Facility HSV: Outpatient Exam: THORACIC SPINE 2V PROCEDURE: XR THORACIC SPINE 2 VIEWS CLINICAL INDICATION:Fall. COMPARISON: None. FINDINGS: Two views of the thoracic spine.. Bones: Demineralization limits evaluation for subtle fracture. Approximately 30 degrees apex left curvature of the midthoracic spine. Vertebral body heights preserved. No evidence for fracture.No significant degenerative changes. Soft tissues: Visualized soft tissues normal. IMPRESSION: No acute findings.Severe demineralization. CT or MRI may be useful if there is strong clinical suspicion for radiographically occult fracture. Electronically signed by:Balta Monteiro MD01/27/2024 09:32 AM EDT Dictated By: Balta Monteiro Transcribed By: Transcribed On: 01/24/2024 4:59 PM Electronically signed by: Balta Monteiro 01/24/2024 Thank you for referring CHIQUITA KURTZ to [facility]. Legally authenticated by AMANDO SANTIAGO 2024-01-24 16:59:00 Procedure Note Provider, Generic [place] - 01/27/2024 [place] [address] Name: CHIQUITA KURTZ Exam Date: 01/24/2024 : 1955 Age 68 years Gender: F Physician: NICKI PACE Facility: [facility] Facility HSV: Outpatient Exam: THORACIC SPINE 2V PROCEDURE: XR THORACIC SPINE 2 VIEWS CLINICAL INDICATION:Fall. COMPARISON: None. FINDINGS: Two views of the thoracic spine.. Bones: Demineralization limits evaluation for subtle fracture.Approximately 30 degrees apex left curvature of the midthoracic spine. Vertebral body heights preserved. No evidence for fracture.No significant degenerative changes. Soft tissues: Visualized soft tissues normal. IMPRESSION: No acute findings.Severe demineralization. CT or MRI may be useful ifthere is strong clinical suspicion for radiographically occult fracture. Electronically signed by:Balta Monteiro MD01/27/2024 09:32 AM EDT RP Dictated By: Balta Monteiro Transcribed By: Transcribed On: 01/24/2024 4:59 PM Electronically signed by: Balta Monteiro 01/24/2024 Thank you for referring CHIQUITA KURTZ to [facility]. Legally authenticated by AMANDO SANTIAGO 2024-01-24 [...] documented as of this encounter Care Teams Miller Wood Flour Relationship Specialty Start Date End Date Nicki Thomas MD [address] [place] [address] PCP - General 10/08/20 Reji Gonsales MD [id number] [place] [address] Consulting Physician Radiation Oncology 08/02/21 documented as of this encounter
--- OUTSIDE RECORDS SUMMARY | 2025-01-12 11:27 | XMS_ITS | Encounter Summary ---
Author Organization Healthcare Address [address] [place] [address] Care Team Providers Care Security Support Analyst Name Role Phone Nicki Thomas MD Primary Care Provider [phone] Reji Gonsales MD Unavailable [phone] Encounter Details Date Type Department Care Team (Latest Contact Info) Description 01/02/2025 Travel Social History Tobacco Use Types Packs/Day Years [...] often do you attend chur ch or pentecostalism services? Never 12/07/2023 Do you belong to any clubs o r organizations such as jehovah's witness groups, unions, fraternal or athletic groups, or [...] place to sleep or slept in a senior living (including now)? No 12/07/2023 PHQ-9 Answer Date [...] declined 01/02/2025 How often do you attend jehovah's witness or pentecostalism serv ices? Patient declined 01/02/2025 Do you belong to any clubs o r organizations such as jehovah's witness groups, unions, fraternal or athletic groups, or [...] drinks on one occasion? Patient declined 01/02/2025 [facility] - [facility] Stress Questionnaire Answer Date [...] any time in the past 12 m onths, were you homeless or living in a senior living (including now)? No 01/02/2025 Safety and Environment [...] has e electric, gas, oil, or water company [...] as of this encounter Functional Status * AUDIT-C Score [...] are drinking? Patient declined 01/02/2025 9:21 AM STEFANIAT Barbara Pina Q3: How often do you have si x or more drinks on one occasion? Patient declined 01/02/2025 9:21 AM STEFANIAT Barbara Pina * Calculated C-SSRS Risk Score (Lifetime/Recent) Answer Date of Assessment Author No Risk Indicated 01/02/2025 9:22 AM Barbara Gomez * Question Answer Date of Assessment Author 1. Wish to be (Past 1 Month) No 025 9:22 AM Barbara Gomez 2. Non-Specific Active Suici viet Thoughts (Past 1 Month) No 01/02/2025 9:22 AM Barbara Gomez 6. Suicidal Behavior (Lifetime) No 9:22 AM Barbara Gomez documented as of this encounter Plan of Treatment Upcoming Encounters Date Type Department Care Team (Late st Contact Info) Description 01/30/2025 1:00 PM EDT Office Visit [facility] [address] [place] [address] Nicki Thomas MD [address] [place] [address] 04/06/2025 11:00 AM EST Clinical Support [facility] Laboratory Services [address], 1st [place] [address] 04/20/2025 3:00 PM EST Appointment [facility] Bone & Mineral Metabolism [address] [facility], [address] [place] [address] 04/20/2025 3:20 PM EST Office Visit [facility] Bone & Mineral Metabolism [address] [facility], [address] [place] [address] Teri Jose, GREY [address] [place] [address] 10/26/2025 1:00 PM EDT Appointment [facility] Breast Care [place] [facility] [address] [facility] 800 [place] [address] 10/26/2025 2:30 PM EDT Office Visit [facility] Breast Care Center [address] [facility], 2nd [place] [address] Michaela Lloyd, BIOMEDICAL SCIENTIST [address] [address] documented as of this encounter [...] documented as of this encounter Care Teams Security Support Analyst Relationship Specialty Start Date End Date Nicki Thomas MD [address] [place] [address] PCP - General 10/08/20 Reji Gonsales MD [id number] [place] [address] Consulting Physician Radiation Oncology 08/02/21 documented as of this encounter
== END 2025-01-10 23:59 | disposition home or self-care (01) ==
LOC: LAB.DROPOF 01-12 11:24
PROVIDERS: PCP Nurse Practitioner Family; Visit Provider Nurse Practitioner Family
DX: R30.0 Dysuria (principal)
CPT/HCPCS: 87086

== ENCOUNTER 2025-01-16 12:45 | Outpatient (CLI) | payer MEDICARE, SELFPAY ==
--- OUTSIDE RECORDS SUMMARY | 2025-01-02 09:00 | XMS_ITS | Encounter Summary ---
Author Organization Healthcare Address [address] [id number] Care Team Providers Care Senior Designer Name Role Phone Nicki Thomas MD Primary Care Provider [phone] Reji Gonsales MD Unavailable [phone] Reason for Visit * Reason Comments Dizziness Lasted a few weeks. Hip Pain Left side - pain for years. But thinks she may have pulled a muscle. Left leg going numb for about a month. Swelling & pain on top of foot for about a year. Encounter Details Date Type Department Care Team (Late st Contact Info) Description 01/02/2025 9:00 AM EDT Office Visit [facility] [address] [place] [address] Zenia Worthy, TELEPHONE ADVICE NURSE, DNP [address] [place] [address] ETD (Eustachian tube dysfunction), left (Primary Dx); Pain of left sacroiliac joint; Vertigo; Muscle cramps Social History Tobacco Use Types Packs/Day Years Used Date Smoking Tobacco: Former Cigarettes 0.3 15 1 983 - 1998 Passive Smoke Exposure: Past Smokeless Tobacco: Never Tobacco Cessation:Counseling Given: No Alcohol Use Standard Drinks/Week Comments Not Currently 0 (1 standard drink = 0.6 oz pur e alcohol) h/o social use Social Connection and Isolation Panel Answer Date Recorded In a typical week, how many times do you talk on the phone with family, friends, or neighbors? More than three times a week 12/07/2023 How often do you get togethe r with friends or relatives? More than three times a week 12/07/2023 How often do you attend chur or hindu services? Never 12/07/2023 Do you belong to any clubs o r organizations such as protestant groups, unions, fraternal or athletic groups, or school groups? No 12/07/2023 How often do you attend meet ings of the clubs or organizations you belong to? Never 12/07/2023 Are you , , di vorced, , never , or living with a partner? 12/07/2023 AUDIT-C Answer Date Recorded Q1: How often do you have a drink containing alcohol? Never 12/07/2023 Q2: How many drinks containi ng alcohol do you have on a typical day when you are drinking? Patient does not drink Q3: How often do you have si x or more drinks on one occasion? Never 12/07/2023 PHQ-2 Answer Date Recorded Patient Health Questionnaire-2 Score 0 10/17/2024 Housing Stability Vital Sign Answer Kevyn e Recorded In the last 12 months, was t here a time when you were not able to pay the mortgage or rent on time? No 12/07/2023 In the last 12 months, how many places have you lived? 1 12/07/2023 In the last 12 months, was t here a time when you did not have a steady place to sleep or slept in a intermediate (including now)? No 12/07/2023 PHQ-9 Answer Date Recorded Patient Health Questionnaire-9 Score 0 10/15/2024 Humiliation, Afraid, Rape, and Kick questionnair e Answer Date Recorded Within the last year, have y ou been afraid of your partner or ex-partner? Patient declined 01/02/2025 Within the last year, have y ou been humiliated or emotionally abused in other ways by your partner or ex-partner? Patient declined 01/02/2025 Within the last year, have y ou been kicked, hit, slapped, or otherwise physically hurt by your partner or ex-partner? Patient declined 01/02/2025 Within the last year, have y ou been raped or forced to have any kind of sexual activity by your partner or ex-partner? Patient declined 01/02/2025 Social Connection and Isolation Panel Answer Date Recorded In a typical week, how many times do you talk on the phone with family, friends, or neighbors? Patient declined 01/02/2025 How often do you get togethe r with friends or relatives? Patient declined 01/02/2025 How often do you attend protestant or hindu serv ices? Patient declined 01/02/2025 Do you belong to any clubs o r organizations such as protestant groups, unions, fraternal or athletic groups, or school groups? Patient declined 01/02/2025 How often do you attend meet ings of the clubs or organizations you belong to? Patient declined 01/02/2025 Are you , , di vorced, , never , or living with a partner? Patient declined 01/02/2025 AUDIT-C Answer Date Recorded Q1: How often do you have a drink containing alc ohol? Patient declined 01/02/2025 Q2: How many drinks containi ng alcohol do you have on a typical day when you are drinking? Patient declined 01/02/2025 Q3: How often do you have si x or more drinks on one occasion? Patient declined [facility]/02/[facility] - Occupational Stress Questionnaire Answer Date Recorded Do you feel stress - tense, restless, nervous, or anxious, or unable to sleep at night because your mind is troubled all the time - these days? Patient declined 01/02/2025 Exercise Vital Sign Answer Date Recorde d On average, how many days pe r week do you engage in moderate to strenuous exercise (like a brisk walk)? Patient declined On average, how many minutes do you engage in exercise at this level? Patient declined 01/02/2025 Hunger Vital Sign Answer Date Recorded Within the past 12 months, y ou worried that your food would run out before you got the money to buy more. Never true 01/03/20 25 Within the past 12 months, t he food you bought just didn't last and you didn't have money to get more. Never true 01/02/2025 PRAPARE - Transportation Answer Date Re corded In the past 12 months, has l ack of transportation kept you from medical appointments or from getting medications? No 12/2024 In the past 12 months, has l ack of transportation kept you from meetings, work, or from getting things needed for daily living? No 01/02/2025 Housing Stability Vital Sign Answer Kevyn e Recorded In the last 12 months, was t here a time when you were not able to pay the mortgage or rent on time? No 01/02/2025 In the past 12 months, how m any times have you moved where you were living? 0 01/02/2025 At any time in the past 12 m [facility], were you homeless or living in a intermediate (including now)? No 01/02/2025 Safety and Environment Answer Date Saúl rded Do you worry that your child may have been physically abused? Patient declined 01/02/2025 Do you worry that your child may have been sexually abused? Patient declined 01/02/2025 Are there any guns kept in o r around your home or where your child spends time? Patient declined 01/02/2025 Guns Unloaded or Locked Away Not on file 12/2024 Utilities Answer Date Recorded In the past 12 months has th e electric, gas, oil, or water company threatened to shut off services in your home? No 01/02/2025 PHQ-2A Answer Date Recorded Patient Health Questionnaire-2 Score 0 05/04/2023 Comments No Sex and Gender Information Value Date Recorded Sex Assigned at Not on file Legal Sex Female 6:13 PM EDT Gender Identity Not on file Sexual Orientation Not on file documented as of this encounter Last Filed Vital Signs Vital Sign Reading Time Taken Comments Blood Pressure 138/88 01/02/2025 9:17 AM EDT Pulse 72 01/02/2025 9:17 AM EDT Temperature 36.6 C (97.9 F) 01/02/2025 9:17 AM EDT Respiratory Rate 18 01/02/2025 9:17 AM EDT Oxygen Saturation 97% 01/02/2025 9:17 AM EDT Inhaled Oxygen Concentration - - Weight 65.3 kg (143 lb 15.4 oz) 01/02/2025 9:17 AM EDT Height 152.4 cm (5') 01/02/2025 9:17 AM EDT Body Mass Index 28.12 01/02/2025 9:17 AM EDT documented in this encounter Functional Status * AUDIT-C Score Answer Date of Assessment Author -1 01/02/2025 9:21 AM EDT Elli Pina * Question Answer Date of Assessment Author Q1: How often do you have a drink containing alcohol? Patient declined 01/02/2025 9:21 AM EDT Karlos Pina Q2: How many drinks containing alcohol do you have on a typical day when you are drinking? Patient declined 01/02/2025 9:21 AM EDT Barbara Pina Q3: How often do you have si x or more drinks on one occasion? Patient declined 01/02/2025 9:21 AM EDT Barbara Pina * Calculated C-SSRS Risk Score (Lifetime/Recent) Answer Date of Assessment Author No Risk Indicated 01/02/2025 9:22 AM EDT Barbara Pina * Question Answer Date of Assessment Author 1. Wish to be (Past 1 Month) No 025 9:22 AM EDT Barbara Pina 2. Non-Specific Active Suici viet Thoughts (Past 1 Month) No 01/02/2025 9:22 AM EDT Barbara Pina 6. Suicidal Behavior (Lifetime) No 9:22 AM EDT Barbara Pina documented as of this encounter Miscellaneous Notes * Progress Notes - Zenia Worthy, TELEPHONE ADVICE NURSE, DNP - 01/02/2025 9:00 AM EDT Subjective Manju Bird Dizziness Hip Pain Ms. Bird says a couple weeks ago she was working outside and developed pain in her left groin that radiates to her back. Patient says in her leg she has been having swelling in her left leg. Patient says she has been having cramping in her legs. Patient has pain with ambulation. Patient denies any injury to area. Patient says she has continuous left hip pain. Patient describes pain in hip as dullache. Patient says when she wakes up in the morning and at night she has been having dizziness. Patient says she feels off balance. Patient says she doesn't feel like she is going to pass out when she is dizzy. Patient denies blurred vision out of the ordinary. Patient denies chest pain or shortness of breath Past Medical History[1] Family History[2] Surgical History[3] Social History Socioeconomic History Marital status: Spouse name: Not on file Number of children: Not on file Years of education: Not on file Highest education level: Not on file Occupational History Not on file Tobacco Use Smoking status: Former Current packs/day: 0.00 Average packs/day: 0.3 packs/day for 15.0 years (3.8 ttl pk-yrs) Types: Cigarettes Start date: 1982 Quit date: 1997 Years since quittin.6 Passive exposure: Past Smokeless tobacco: Never Vaping Use Vaping status: Never Used Substance and Sexual Activity Alcohol use: Not Currently Comment: h/o social use Drug use: Never Sexual activity: Defer Other Topics Concern Not on file Social History Narrative Not on file Social Drivers of Health Financial Resource Strain: Not on file Food Insecurity: No Food Insecurity (01/02/2025) Hunger Vital Sign Worried About Running Out of Food in the Last Year: Never true Ran Out of Food in the Last Year: Never true Transportation Needs: No Transportation Needs (01/02/2025) PRAPARE - Transportation Lack of Transportation (Medical): No Lack of Transportation (Non-Medical): No Physical Activity: Patient Declined (01/02/2025) Exercise Vital Sign Days of Exercise per Week: Patient declined Minutes of Exercise per Session: Patient declined Stress: Patient Declined (01/02/2025) [employer] [facility] [employer] - Occupational Stress Questionnaire Feeling of Stress: Patient declined Social Connections: Patient Declined (01/02/2025) Social Connection and Isolation Panel Frequency of Communication with Friends and Family: Patient declined Frequency of Social Gatherings with Friends and Family: Patient declined Attends Orthodox Services: Patient declined Active Member of Clubs or Organizations: Patient declined Attends Club or Organization Meetings: Patient declined Marital Status: Patient declined Intimate Partner Violence: Patient Declined (01/02/2025) Humiliation, Afraid, Rape, and Kick questionnaire Fear of Current or Ex-Partner: Patient declined Emotionally Abused: Patient declined Physically Abused: Patient declined Sexually Abused: Patient declined Housing Stability: Low Risk (01/02/2025) Housing Stability Vital Sign Unable to Pay for Housing in the Last Year: No Number of Times Moved in the Last Year: 0 Homeless in the Last Year: No Medications Ordered Prior to Encounter[4] Allergies[5] Health Maintenance Due Topic Date Due [facility]-Hepatitis C Screening Never done [id number]-17 Vaccine (1) Never done [facility]- SDOH Screenings Never done [facility]-DTaP,Tdap,and Td Vaccines (1 - Tdap) Never done [facility]-Pneumococcal Vaccine: 50+ Years (1 of 2 - PCV) Never done [facility]-Zoster Vaccines (1 of 2) Never done [facility]-RSV Vaccine: 60+ Years or (1 - Risk 60-74 years 1-dose series) Never done [facility]-Medicare Annual Wellness (AWV) 12/12/2024 [facility]-Influenza Vaccine (1) 01/26/2025 [facility]-Colorectal Cancer Screening 09/08/2025 The following portions of the patient's chart were reviewed in this encounter and updated as appropriate: past medical history, surgical history, family history, tobacco history, allergies, and medications A 14-point review of systems was completed with pertinent positives and negatives outlined above. Objective Vitals: 01/02/25 0917 BP: 138/88 Pulse: 72 Resp: 18 Temp: 36.6 ??C (97.9 ??F) SpO2: 97% Physical Exam Constitutional: Appearance: Normal appearance. HENT: Head: Normocephalic and atraumatic. Right Ear: Tympanic membrane, ear canal and external ear normal. Left Ear: A middle ear effusion is present. Mouth/Throat: Mouth: Mucous membranes are moist. Eyes: Pupils: Pupils are equal, round, and reactive to light. Cardiovascular: Rate and Rhythm: Normal rate and regular rhythm. Pulses: Normal pulses. Heart sounds: Normal heart sounds. Pulmonary: Effort: Pulmonary effort is normal. Breath sounds: Normal breath sounds. Musculoskeletal: Comments: Tenderness upon palpation of left sacroiliac joint, full range of motion of left hip, no obvious deformity, pulses 2+, good sensation, negative straight leg test Neurological: General: No focal deficit present. Mental Status: She is alert and oriented to person, place, and time. Psychiatric: Mood and Affect: Mood normal. Behavior: Behavior normal. Thought Content: Thought content normal. Judgment: Judgment normal. Assessment/Plan 1. ETD (Eustachian tube dysfunction), left (Primary) - predniSONE (Deltasone) 20 MG tablet; Take 2 tablets by mouth daily for 5 days. Dispense: 10 tablet; Refill: 0 2. Pain of left sacroiliac joint Educated on risks/benefits of medication. May alternate between heat and ice. Encouraged stretching. Will return if condition persists. - predniSONE (Deltasone) 20 MG tablet; Take 2 tablets by mouth daily for 5 days. Dispense: 10 tablet; Refill: 0 3. Vertigo Will watch sodium in diet. Will increase hydration. Will decrease caffeine in diet. Educated on redflags and when to return. - meclizine (Antivert) 25 MG tablet; Take 1 tablet by mouth 3 times a day as needed for dizziness for up to 7 days. Dispense: 21 tablet; Refill: 0 4. Muscle cramps Will order labs to check potassium. Low potassium could be reason for muscle spasms. 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 Essential (primary) hypertension Hypertension Hx antineoplastic chemo Personal history of irradiation Personal history of other diseases of the respiratory system History of sore throat [2] Family History Problem Relation Name Age of Onset Breast cancer Mother 65 Conversions - Other Mother malignant neoplasm of female breast Breast cancer Maternal Grandmother Conversions - Other Maternal Grandmother malignant neoplasm of female breast [3] Past Surgical History: Procedure Laterality Date APPENDECTOMY N/A Appendectomy from [facility] APPENDECTOMY N/A Appendectomy from [facility] BREAST LUMPECTOMY Right 2019 IDC ELBOW SURGERY N/A [facility]bow [facility] ELBOW SURGERY N/A Elbow surgery from [facility] TUBAL LIGATION N/A Tubal L[facility] [4] Current Outpatient Medications on File Prior to Visit Medication Sig Dispense Refill albuterol 108 (90 Base) MCG/ACT inhaler Inhale 2 puffs every 6 (six) hours if needed for wheezing. 18 g 11 alpha tocopherol (Vitamin E) 400 units capsule Take 1 capsule (400 Units) by mouth 1 (one) time each day. 90 capsule 2 amLODIPine (Norvasc) 5 MG tablet Take 1 tablet (5 mg) by mouth daily. 30 tablet 5 aspirin 325 MG EC tablet Take 1 tablet (325 mg) by mouth 2 (two) times a day. cholecalciferol (Vitamin D3) 25 MCG (1000 UT) tablet Take 1 tablet (1,000 Units) by mouth 1 (one) time each day. 90 tablet 2 cyclobenzaprine (Flexeril) 5 MG tablet Take 1 tablet (5 mg) by mouth 2 (two) times a day if needed for muscle spasms. 30 tablet 0 diazePAM (Valium) 2 MG tablet TAKE 1 TABLET BY MOUTH THREE TIMES A DAY NEEDED 90 tablet 3 fluticasone (Flonase) 50 MCG/ACT nasal spray Administer 1 spray into each nostril daily. Shake gently. Before first use, prime pump. After use, clean tip and replace cap. 48 g 0 ibuprofen 800 MG tablet Take 1 tablet (800 mg) by mouth 1 (one) time each day if needed for moderate pain. 90 tablet 3 ketoconazole (NIZOral) 2 % cream Apply 1 Application topically 2 (two) times a day. metoprolol succinate XL (Toprol-XL) 25 MG 24 hr tablet Take 1 tablet (25 mg) by mouth daily. Do notcrush or chew. (Patient taking differently: Take 1 tablet by mouth as needed. PRN.) 30 tablet 2 omega-3 (Fish Oil) 1000 MG capsule Take 1 capsule (1,000 mg) by mouth 1 (one) time each day. 90 capsule 2 pantoprazole (Protonix) 20 MG EC tablet Take 1 tablet (20 mg) by mouth daily before breakfast. Do not crush, chew, or split. 90 tablet 2 potassium chloride CR (K-Tab) 20 MEQ ER tablet Take 1 tablet by mouth daily. Do not crush, chew, orsplit. 90 tablet 1 valACYclovir (Valtrex) 1 g tablet Take 1 tablet (1,000 mg) by mouth 2 (two) times a day. 30 tablet 3 Calcium & Magnesium Carbonates 975-232 MG tablet Take 1 tablet by mouth 1 (one) time each day. 90 tablet 2 Calcium-Magnesium 500-250 MG tablet TAKE 1 TABLET BY MOUTH DAILY. 90 tablet 3 No current facility-administered medications on file prior to visit. [5] Allergies Allergen Reactions Ezetimibe Other - please document in the comment field Joint pains Statins Other - please document in the comment field Makes her sick and heaviness in her legs, nightmares documented in this encounter Plan of Treatment Upcoming Encounters Date Type Department Care Team (Late st Contact Info) Description 01/30/2025 1:00 PM EDT Office Visit [facility] [address] [place] [address] Nicki Thomas MD [address] [place] [address] 04/06/2025 11:00 AM EST Clinical Support [facility] Laboratory Services [address] [place] [address] 04/20/2025 3:00 PM EST Appointment [facility] Bone & Mineral Metabolism [address], [address] [place] [address] 04/20/2025 3:20 PM EST Office Visit [facility] Bone & Mineral Metabolism [address], [address] [place] [address] Teri Jose, GREY [address] [place] [address] 10/26/2025 1:00 PM EDT Appointment [facility] Breast [facility] [address] [address] [address] [facility] [address] [place] [address] 10/26/2025 2:30 PM EDT Office Visit [facility] Breast Care Center [address] [place] [address] Michaela Lloyd, TELEPHONE ADVICE NURSE [address] [facility] [address] [place] [address] documented as of this encounter Procedures Procedure Name Priority Date/Time Associated Diagnosis Comments COMPREHENSIVE METABOLIC PANEL, PLASMA Routine 01/02/2025 9:50 AM EDT Muscle cramps documented in this encounter Results * Comprehensive Metabolic Panel, Plasma (01/02/2025 9:50 AM EDT) Glucose, Plasma 87 74 - 99 mg/dL 01/02/2025 3:09 PM EDT [facility] BUN, Plasma 11 8 - 23 mg/dL 01/02/2025 3:09 PM EDT [facility] Creatinine, Plasma 0.65 0.60 - 1.10 mg/dL 01/02/2025 3:09 PM EDT [facility] BUN/Creatinine Ratio 17 01/02/2025 3:09 PM EDT [facility] Sodium, Plasma 143 136 - 145 mmol/L 01/02/2025 3:09 PM EDT [facility] Potassium, Plasma 3.8 3.6 - 4.9 mmol/L 01/02/2025 3:09 PM EDT [facility] Chloride, Plasma 106 97 - 107 mmol/L 01/02/2025 3:09 PM EDT [facility] CO2, Plasma 24 22 - 29 mmol/L 01/02/2025 3:09 PM EDT [facility] Anion Gap 13 6 - 16 mmol/L 01/02/2025 3:09 PM EDT [facility] Total Calcium, Plasma 9.2 8.9 - 10.2 mg/dL 01/02/2025 3:09 PM EDT [facility] Total Protein 7.6 6.3 - 7.9 g/dL 01/02/2025 3:09 PM EDT [facility] Albumin, Plasma 4.6 3.5 - 5.2 g/dL 01/02/2025 3:09 PM EDT [facility] AST, Plasma 24 10 - 35 U/L 01/02/2025 3:09 PM EDT [facility] ALT, Plasma 28 10 - 35 U/L 01/02/2025 3:09 PM EDT [facility] Alkaline Phosphatase, Plasma 88 46 - 142 U/L 01/02/2025 3:09 PM EDT [facility] Total Bilirubin, Plasma 0.5 0.2 - 1.1 mg/dL 01/02/2025 3:09 PM EDT [facility] eGFRcr 96.0 mL/min/1.7 3m*2 01/02/2025 3:09 PM EDT [facility] Comment:Reported eGFRcr in m L/min/1.73m2 is based the CKD-EPI 2020 equation that does not use a race coefficient. Blood Venous blood specimen / Unknown Venipuncture / Unknown 01/02/2025 9:50 AM EDT 01/02/2025 9:50 AM EDT us Zenia Worthy TELEPHONE ADVICE NURSE, DNP LAB BLOOD ORDERABLES Final Result [facility] [address] [place] [address] documented in this encounter Visit Diagnoses Diagnosis ETD (Eustachian tube dysfunction), left- Primary Pain of left sacroiliac joint Vertigo Dizziness and giddiness Muscle cramps documented in this encounter Additional Health Concerns Assessment Noted Time PHQ-9 Depression Total Score: 0 10/16/19 25 4:14 PM EDT A fall risk assessment has been complete d for the patient 01/02/2025 9:19 AM EDT A Body Mass Index follow-up plan has been documented for the patient 10/17/2024 1:07 PM EDT documented as of this encounter Care Teams Senior Designer Relationship Specialty Start Date End Date Nicki Thomas MD [address] [place] [address] PCP - General 10/08/20 Reji Gonsales MD [id number] [place] [address] Consulting Physician Radiation Oncology 08/02/21 documented as of this encounter
--- OUTSIDE RECORDS SUMMARY | 2025-01-14 15:20 | XMS_ITS | Encounter Summary ---
Author Organization Healthcare Address [address] [place] [address] Care Team Providers Care Bee Worker Name Role Phone Nicki Thomas MD Primary Care Provider [phone] Reji Gonsales MD Unavailable [phone] Reason for Visit * Reason Comments Follow-up Pt is having vaginal itching and burning with left sided abd pain. Feels like her vagina is swollen. Went to [facility] and was told she does not have a UTI and was informed to get OTC yeast infection cream. Pt states the cream did not help her symptoms. Encounter Details Date Type Department Care Team (Late st Contact Info) Description 01/14/2025 3:20 PM EDT Office Visit [facility] [address] [place] [address] Raine Jean Baptiste MD [address] [place] [address] Painful urination (Primary Dx); HSV infection Social History Tobacco Use Types Packs/Day Years [...] often do you attend chur ch or jew services? Never 12/07/2023 Do you belong to any clubs o r organizations such as pentecostal groups, unions, fraternal or athletic groups, or [...] place to sleep or slept in a long-term (including now)? No 12/07/2023 PHQ-9 Answer Date [...] declined 01/02/2025 How often do you attend pentecostal or jew serv ices? Patient declined 01/02/2025 Do you belong to any clubs o r organizations such as pentecostal groups, unions, fraternal or athletic groups, or school groups? Patient declined 01/02/2025 How often do you attend meet ings of the clubs or organizations you belong to? Patient declined 01/02/2025 Are you , , di vorced, , never , or living with a partner? Patient declined 01/02/2025 AUDIT-C Answer Date Recorded Q1: How often do you have a drink containing alcohol? Never 01/14/2025 Q2: How many drinks containi ng alcohol do you have on a typical day when you are drinking? Patient does not drink Q3: How often do you have si x or more drinks on one occasion? Never 01/14/2025 [facility] - Occupational Stress Questionnaire Answer [...] any time in the past 12 m [facility], were you homeless or living in a long-term (including now)? No 01/02/2025 Safety and Environment [...] In the past 12 months has e [employer], gas, oil, or water company threatened to [...] Sign Reading Time Taken Comments Blood Pressure 168/98 01/14/2025 3:29 PM EDT Pulse 71 01/14/2025 3:19 PM EDT Temperature 36.9 C (98.4 F) 01/14/2025 3:19 PM EDT Respiratory Rate 18 01/14/2025 3:19 PM EDT Oxygen Saturation 98% 01/14/2025 3:19 PM EDT Inhaled Oxygen Concentration - - Weight 65.8 kg (145 lb 1 oz) 01/14/2025 3:19 PM EDT Height 152.4 cm (5') 01/14/2025 3:19 PM EDT Body Mass Index 28.33 01/14/2025 3:19 PM EDT documented in this encounter Functional Status * AUDIT-C Score Answer Date of Assessment Author 0 01/14/2025 3:26 PM EDT Monica Moreno P * Question Answer Date of Assessment Author Q1: How often do you have a drink containing alcohol? Never 01/14/2025 3:26 PM EDT Brit Moreno Q2: How many drinks containing alcohol do you have on a typical day when you are drinking? Patient does not drink 01/14/2025 3:26 PM EDT Brit Moreno Q3: How often do you have six or more drinks on one occasion? Never 01/14/2025 3:26 PM EDT Brit Moreno * Calculated C-SSRS Risk Score (Lifetime/Recent) Answer Date of Assessment Author No Risk Indicated 01/14/2025 3:27 PM EDT Brit Moreno * Question Answer Date of Assessment Author 1. Wish to be (Past 1 Month) No 025 3:27 PM EDT Brit Moreno 2. Non-Specific Active Suici viet Thoughts (Past 1 Month) No 01/14/2025 3:27 PM EDT Jacky Moreno P 6. Suicidal Behavior (Lifetime) No 3:27 PM EDT Brit Moreno documented as of this encounter Miscellaneous Notes * Progress Notes - Raine Jean Baptiste MD - 01/14/2025 3:20 PM EDT Subjective Patient ID: Manju Bird is a 69 y.o. female. Chief Complaint Patient presents with Follow-up Pt is having vaginal itching and burning with left sided abd pain. Feels like her vagina is swollen. Went to [facility] and was told she does not have a UTI and was informed to get OTC yeast infection cream. Pt states the cream did not help her symptoms. HPI Pt with few day hx of vaginal pain and feeling swollen. She went to [facility] and was tested for uti and given monistat. This has not helped. + urinary frequency and urgency. + pain . She divulges that shehas a hx of herpes infection several years ago. She does not recall if this pain is similar Current Medications[1] Pertinent review of systems has been performed and negative except as noted in HPI. Pertinent areas of the chart reviewed include social, family, past medical and surgical history. Objective Physical Exam Constitutional: Appearance: Normal appearance. HENT: Head: Normocephalic and atraumatic. Right Ear: External ear normal. Left Ear: External ear normal. Nose: Nose normal. Mouth/Throat: Mouth: Mucous membranes are moist. Pharynx: Oropharynx is clear. Eyes: Extraocular Movements: Extraocular movements intact. Pupils: Pupils are equal, round, and reactive to light. Cardiovascular: Rate and Rhythm: Normal rate and regular rhythm. Heart sounds: Normal heart sounds. Pulmonary: Effort: Pulmonary effort is normal. Breath sounds: Normal breath sounds. Abdominal: General: Bowel sounds are normal. Palpations: Abdomen is soft. Genitourinary: Comments: No lesions or tenderness noted on the vulva, no redness or discharge Musculoskeletal: Cervical back: Normal range of motion. Right lower leg: No edema. Left lower leg: No edema. Skin: General: Skin is warm and dry. Coloration: Skin is not jaundiced. Findings: No rash. Neurological: Mental Status: She is alert. Psychiatric: Mood and Affect: Mood normal. Behavior: Behavior normal. Thought Content: Thought content normal. Assessment/Plan Diagnoses and all orders for this visit: Painful urination - POCT Urinalysis dipstick - Urine Culture 1. Painful urination (Primary) Will send urine for cx. UA good here today - POCT Urinalysis dipstick - Urine Culture 2. HSV infection Pt has refill on valtrex at pharmacy. Will start this med as we await culture of urine [1] Current Outpatient Medications: albuterol 108 (90 Base) MCG/ACT inhaler, Inhale 2 puffs every 6 (six) hours if needed for wheezing., Disp: 18 g, Rfl: 11 alpha tocopherol (Vitamin E) 400 units capsule, Take 1 capsule (400 Units) by mouth 1 (one) time each day., Disp: 90 capsule, Rfl: 2 amLODIPine (Norvasc) 5 MG tablet, Take 1 tablet (5 mg) by mouth daily., Disp: 30 tablet, Rfl: 5 aspirin 325 MG EC tablet, Take 1 tablet (325 mg) by mouth 2 (two) times a day., Disp: , Rfl: Calcium & Magnesium Carbonates 975-232 MG tablet, Take 1 tablet by mouth 1 (one) time each day., Disp: 90 tablet, Rfl: 2 Calcium-Magnesium 500-250 MG tablet, TAKE 1 TABLET BY MOUTH DAILY., Disp: 90 tablet, Rfl: 3 cholecalciferol (Vitamin D3) 25 MCG (1000 UT) tablet, Take 1 tablet (1,000 Units) by mouth 1 (one) time each day., Disp: 90 tablet, Rfl: 2 cyclobenzaprine (Flexeril) 5 MG tablet, Take 1 tablet (5 mg) by mouth 2 (two) times a day if neededfor muscle spasms., Disp: 30 tablet, Rfl: 0 diazePAM (Valium) 2 MG tablet, TAKE 1 TABLET BY MOUTH THREE TIMES A DAY NEEDED, Disp: 90 tablet,Rfl: 3 ibuprofen 800 MG tablet, Take 1 tablet (800 mg) by mouth 1 (one) time each day if needed for moderate pain., Disp: 90 tablet, Rfl: 3 ketoconazole (NIZOral) 2 % cream, Apply 1 Application topically 2 (two) times a day., Disp: , Rfl: meclizine (Antivert) 25 MG tablet, Take 1 tablet by mouth 3 times a day as needed for dizziness forup to 7 days., Disp: 21 tablet, Rfl: 0 omega-3 (Fish Oil) 1000 MG capsule, Take 1 capsule (1,000 mg) by mouth 1 (one) time each day., Disp: 90 capsule, Rfl: 2 potassium chloride CR (K-Tab) 20 MEQ ER tablet, Take 1 tablet by mouth daily. Do not crush, chew, or split., Disp: 90 tablet, Rfl: 1 valACYclovir (Valtrex) 1 g tablet, Take 1 tablet by mouth 2 times a day., Disp: 30 tablet, Rfl: 3 fluticasone (Flonase) 50 MCG/ACT nasal spray, Administer 1 spray into each nostril daily. Shake gently. Before first use, prime pump. After use, clean tip and replace cap. (Patient not taking: Reported on 01/14/2025), Disp: 48 g, Rfl: 0 metoprolol succinate XL (Toprol-XL) 25 MG 24 hr tablet, Take 1 tablet (25 mg) by mouth daily. Do not crush or chew. (Patient not taking: Reported on 01/14/2025), Disp: 30 tablet, Rfl: 2 pantoprazole (Protonix) 20 MG EC tablet, Take 1 tablet (20 mg) by mouth daily before breakfast. Do not crush, chew, or split. (Patient not taking: Reported on 01/14/2025), Disp: 90 tablet, Rfl: 2 documented in this encounter Plan of Treatment Upcoming Encounters Date Type Department Care Team ([facility] st Contact Info) Description 01/30/2025 1:00 PM EDT Office Visit [facility] [address] [place] [address] Nicki Thomas MD [address] [place] [address] 04/06/2025 11:00 AM EST Clinical Support [facility] Laboratory Services [address] [facility], 1st [place] [address] 04/20/2025 3:00 PM EST Appointment [facility] Bone & Mineral Metabolism [address] [facility], [address] [place] [address] 04/20/2025 3:20 PM EST Office Visit [facility] & Mineral Metabolism [address] [facility], [address] [place] [address] Teri Jose, GREY [address] [facility] [address] [place] [address] 10/26/2025 1:00 PM EDT [facility]ointment [facility] [address] [facility] [address] [place] [phone] 10/26/2025 2:30 PM EDT Office Visit [facility] Breast Care Center [address] [facility], 2nd [place] [address] Michaela Lloyd, FRONT END DRIVER [address] [facility] [address] [facility] [address] [place] [address] documented as of this encounter Procedures Procedure Name Priority Date/Time Associated Diagnosis Comments URINE CULTURE Routine 01/14/2025 4:19 PM EDT Painful urination POCT URINALYSIS DIPSTICK Routine 01/14/2025 3:46 PM EDT Painful urination documented in this encounter Results * Urine Culture (01/14/2025 4:19 PM EDT) Culture No growth at day 1 01/15/2025 2:30 PM EDT [facility] Urine Urine specimen obtained by clean catch procedure / Unknown Non-blood Collection / Unknown 01/14/2025 4:19 PM EDT 01/14/2025 4:19 PM EDT Raine Jean Baptiste MD LAB MICROBIOLOGY - GENERAL ORDERABLES Final Result Performing Organization Address City/State/[facility] Co de Phone Number [facility] [address] [place] [address] * POCT Urinalysis dipstick (01/14/2025 3:46 PM EDT) POCT Urine Color Yellow POCT Urine Clarity Clear POCT Glucose Urine Negative Negative mg/dL POCT Bilirubin, Urine Negative Negative POCT Ketones, Urine Negative Negative mg/dL POCT Specific [place], Urine 1.020 POCT Blood, Urine Negative Negative POCT pH, Urine 6.5 5.0 to 8.0 POCT Protein, Urine Negative Negative mg/dL POCT Urobilinogen, Urine 0.2 0.2, 1 E.U./dL POCT Nitrite, Urine Negative Negative POCT Leukocyte Esterase, Urine Negative Negative Test Strip Lot Number [id number] Test Strip Lot Expiration 08/24/25 Urine Urine specimen obtained by clean catch procedure / Unknown 01/14/2025 3:46 PM EDT Raine Jean Baptiste MD POINT OF CARE TEST ENTER/E DIT ORDERABLES Final Result documented in this encounter Visit Diagnoses Diagnosis Painful urination- Primary Dysuria HSV infection Herpes simplex without mention of complication documented in this encounter Additional Health Concerns Assessment Noted Time PHQ-9 Depression Total Score: 0 10/16/19 25 4:14 PM EDT A fall risk assessment has been complete d for the patient 01/14/2025 3:27 PM EDT A Body Mass Index follow-up plan has been documented for the patient 01/14/2025 4:49 PM EDT documented as of this encounter Care Teams Bee Worker Relationship Specialty Start Date End Date Nicki Thomas MD [address] [place] [phone] PCP - General 10/08/20 Reji Gonsales MD [address] [phone] Consulting Physician Radiation Oncology 08/02/21 documented as of this encounter
--- OUTSIDE RECORDS SUMMARY | 2025-01-16 12:48 | XMS_ITS | Encounter Summary ---
Author Organization Healthcare Address [address] [place] [address] Care Team Providers Care Regulatory Affairs Analyst Name Role Phone Nicki Thomas MD Primary Care Provider [phone] Reji Gonsales MD Unavailable [phone] Encounter Details Date Type Department Care Team (Late st Contact Info) Description 01/24/2024 Outside Procedure External Location [address] [place] [phone] Nicki Thomas MD [address] [place] [address] Social History Tobacco Use Types Packs/Day [...] often do you attend chur ch or sabianism services? Never 12/07/2023 Do you belong to any clubs o r organizations such as zoroastrian groups, unions, fraternal or athletic groups, or [...] Recorded Patient Health Questionnaire-2 Score 0 01/24/2024 [facility] - Occupational [...] place to sleep or slept in a group home (including now)? No 12/07/2023 Safety and Environment [...] 1:00 PM EDT Office Visit [facility] [address] [place] [address] Nicki Thomas MD [address] [place] [address] 04/06/2025 11:00 AM EST Clinical Support [facility] Laboratory Services [address] [facility], 1st [place] [address] 04/20/2025 3:00 PM EST Appointment [facility] Bone & Mineral Metabolism [address] [facility], [address] [place] [address] 04/20/2025 3:20 PM EST Office Visit [facility] Bone & Mineral Metabolism [address] [facility], [address] [place] [address] Teri Jose, GREY [address] [facility] [address] [place] [address] 10/26/2025 1:00 PM EDT Appointment [facility] Breast [facility] Comprehensive Breast Care Center [facility] [address] [facility] [address] [place] [address] 10/26/2025 2:30 PM EDT Office Visit [facility] Breast Care [place] [address] [facility], 2nd [place] [address] Michaela Lloyd, CLEANER WALL 800 [facility] [address] [place] [address] documented as of this encounter Procedures Procedure Name Priority Date/Time Associated Diagnosis Comments XR THORACIC SPINE 2 VIEWS 01/24/2024 4:15 PM EDT documented in this encounter Results * XR Thoracic Spine 2 Views (01/24/2024 4:15 PM EDT) Anatomical Region Laterality Modality Spine, T-spine Digital Radiogra phy 01/24/2024 4:15 PM EDT Narrative 01/27/2024 9:36 [place] [address] Name: CHIQUITA KURTZ Exam Date: 01/24/2024 : 1955 Age 68 years Gender: F Physician: NICKI PACE Facility: [facility] Facility HSV: Outpatient Exam: THORACIC SPINE 2V [...] Thank you for referring CHIQUITA KURTZ to [facility]. Legally authenticated by AMANDO SANTIAGO 2024-01-24 16:59:00 Procedure Note Provider, Generic [place] - 01/27/2024 [place] [address] Name: CHIQUITA KURTZ Exam Date: 01/24/2024 : 1955 Age 68 years Gender: F Physician: NICKI PACE Facility: [facility] Facility HSV: Outpatient Exam: THORACIC SPINE 2V [...] Thank you for referring CHIQUITA KURTZ to [facility]. Legally authenticated by AMANDO SANTIAGO 2024-01-24 [...] documented as of this encounter Care Teams Regulatory Affairs Analyst Relationship Specialty Start Date End Date Nicki Thomas MD [address] [place] [address] PCP - General 10/08/20 Reji Gonsales MD [id number] [place] [address] Consulting Physician Radiation Oncology 08/02/21 documented as of this encounter
--- OUTSIDE RECORDS SUMMARY | 2025-01-16 12:48 | XMS_ITS | Encounter Summary ---
Author Organization Healthcare Address [address] [id number] Care Team Providers Care Sterilization Specialist Name Role Phone Nicki Thomas MD Primary Care Provider [phone] Reji Gonsales MD Unavailable [phone] Encounter Details Date Type Department Care Team (Late st Contact Info) Description 01/14/2025 [facility] Family & Community Medicine [address] [place] [address] Nicki Thomas MD [address] [place] [address] HSV infection (Primary Dx) Social History Tobacco Use Types Packs/Day Years [...] often do you attend chur ch or buddhism services? Never 12/07/2023 Do you belong to any clubs o r organizations such as temple groups, unions, fraternal or athletic groups, or [...] declined 01/02/2025 How often do you attend temple or buddhism serv ices? Patient declined 01/02/2025 Do you belong to any clubs o r organizations such as temple groups, unions, fraternal or athletic groups, or [...] more drinks on one occasion? Never 01/14/2025 [facility] ional Health - Occupational [...] any time in the past 12 m [facility], were you homeless or living in a [...] Recorded In the past 12 months has [employer], gas, oil, or water company threatened [...] Description 01/30/2025 1:00 PM EDT Office Visit [facility] [address] [place] [address] Nicki Thomas MD [address] [place] [address] 04/06/2025 11:00 AM EST Clinical Support [facility] [place] Laboratory Services [address], 1st [place] [address] 04/20/2025 3:00 PM EST Appointment [facility] [place] Bone & Mineral Metabolism [address], [address] [place] [address] 04/20/2025 3:20 PM EST Office Visit [facility] [place] Mineral Metabolism [address], [address] [place] [address] Teri Jose PA [address] [place] [address] 10/26/2025 1:00 PM EDT Appointment [facility] Mahsa Khoury [facility] [address] [place] [address] 10/26/2025 2:30 PM EDT Office Visit [facility] [address] [facility], 2nd [place] [address] Michaela Lloyd D, TREE WORKER [address] [facility] [address] [place] [address] documented as of this encounter Visit Diagnoses Diagnosis HSV infection- Primary Herpes simplex without mention of complication documented [...] documented as of this encounter Care Teams Sterilization Specialist Relationship Specialty Start Date End Date Nicki Thomas MD [address] [place] [phone] PCP - General 10/08/20 Reji Gonsales MD [address] [facility] [address] [place] [phone] Consulting Physician Radiation Oncology 08/02/21 documented as of this encounter
--- OUTSIDE RECORDS SUMMARY | 2025-01-16 12:48 | XMS_ITS | Clinical Summary ---
Author Organization [facility] Address [address] [place] [address], [address] [place] [address] Care Team Providers Care Bowling Alley Refinisher Name Role Phone System, Referring Not In [...] of Treatment Not on file Care Teams Bowling Alley Refinisher Relationship Specialty Start Date End Date System, Referring Not In PCP - General 06/14/12
--- OUTSIDE RECORDS SUMMARY | 2025-01-16 12:48 | XMS_ITS | Encounter Summary ---
Author Organization Healthcare Address [address] [place] [id number] Care Team Providers Care Nanny/Household Manager Name Role Phone Nicki Thomas MD Primary Care Provider [phone] Reji Gonsales MD Unavailable [phone] Andrey Cordon Unavailable Unavailable Cherise Hart LPN Unavailable Unavailabl e Reason for Visit * Reason Comments Med Refill Encounter Details Date Type Department Care Team (Late Contact Info) Description 07/05/2022 Refill Family and Community Medicine [address] [place] [address] Marina Elizabeth, FARM BUTCHER [address] [place] [address] Sprain of temporomandibular joint, initial [...] PM EDT Office Visit [facility] 202 [place] [place] [address] Nicki Thomas MD [address] [place] [address] 04/06/2025 11:00 AM EST Clinical Support [facility] Laboratory Services [address], 1st [place] [address] 04/20/2025 3:00 PM EST Appointment [facility] Bone & Mineral Metabolism [address] [facility], [address] [place] [address] 04/20/2025 3:20 PM EST Office Visit [facility] Bone & Mineral Metabolism [address] [facility], [address] [place] [address] Teri Jose PA [address] [place] [address] 10/26/2025 1:00 PM EDT Appointment [facility] Breast [facility] Comprehensive Breast Care Center [address] [place] [address] 10/26/2025 2:30 PM EDT Office Visit [facility] Breast Care [place] [address] [facility], 2nd [place] [address] Michaela Lloyd, FARM BUTCHER 800 [facility] [address] [address] documented as of this encounter Visit Diagnoses Diagnosis Sprain of temporomandibular joint, initial encounter documented in this encounter Additional Health Concerns Infection Onset Date Last Indicated Resolved Time Rickettsial fevers, 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 [address] [place] [address] Consulting Physician Radiation Oncology 08/02/21 Andrey Cordon [address] [address] Community Health Worker 10/29/23 11/05/23 Cherise Hart LPN VALUE-BASED TRANSFORMATION PROGRAM TCM Nurse 12/05/23 01/04/24 documented as of this encounter
--- OUTSIDE RECORDS SUMMARY | 2025-01-16 12:48 | XMS_ITS | Encounter Summary ---
Author Organization Healthcare Address [address] [place] [address] Care Team Providers Care Pencil Inspector Name Role Phone Nicki Thomas MD Primary Care Provider [phone] Reji Gonsales MD Unavailable [phone] Encounter Details Date Type Department Care Team (Late st Contact Info) Description 01/16/2025 Results Follow-Up [facility] [address] [place] [address] Raine Jean Baptiste MD [address] [place] [address] Social History Tobacco Use Types [...] often do you attend chur ch or yarsani services? Never 12/07/2023 Do you belong to any clubs o r organizations such as rastafari groups, unions, fraternal or athletic groups, or [...] place to sleep or slept in a residential (including now)? No 12/07/2023 PHQ-9 Answer Date [...] declined 01/02/2025 How often do you attend rastafari or yarsani serv ices? Patient declined 01/02/2025 Do you belong to any clubs o r organizations such as rastafari groups, unions, fraternal or athletic groups, or [...] more drinks on one occasion? Never 01/14/2025 [facility] - Occupational Stress Questionnaire Answer Date Recorded [...] any time in the past 12 m [facility], were you homeless or living in a residential (including now)? No 01/02/2025 Safety and Environment [...] Recorded In the past 12 months has [employer], gas, oil, or water company threatened [...] Description 01/30/2025 1:00 PM EDT Office Visit [facility] [address] [place] [address] Nicki Thomas MD [address] [place] [address] 04/06/2025 11:00 AM EST Clinical Support [facility] [address] [facility] [place] [address] 04/20/2025 3:00 PM EST Appointment [facility] [address], [address] [place] [address] 04/20/2025 3:20 PM EST Office Visit [facility] [address], [address] [place] [address] Teri Jose PA [address] [place] [address] 10/26/2025 1:00 PM EDT Appointment [facility] Mahsa Khoury [facility] [address] [place] [address] 10/26/2025 2:30 PM EDT Office Visit [facility] [address]nd [place] [address] Michaela Lloyd, WOOD ROOM HAND [address] [facility] [address] [place] [address] documented as of this encounter [...] documented as of this encounter Care Teams Pencil Inspector Relationship Specialty Start Date End Date Nicki Thomas MD [address] [place] [address] PCP - General 10/08/20 Reji Gonsales MD [address] [facility] [id number] [place] [id number] Consulting Physician Radiation Oncology 08/02/21 documented as of this encounter
--- OUTSIDE RECORDS SUMMARY | 2025-01-16 12:48 | XMS_ITS | Encounter Summary ---
Author Organization Healthcare Address [address] [place] [address] Care Team Providers Care Environmental Services Attendant Name Role Phone Nicki Thomas MD Primary Care Provider Reji Gonsales MD Unavailable [phone] Encounter Details Date Type Department Care Team (Latest Contact Info) Description 01/14/2025 Travel Social History Tobacco Use Types Packs/Day [...] any clubs o r organizations such as cheondoism groups, unions, fraternal or athletic groups, or [...] declined 01/02/2025 How often do you attend cheondoism or sikh serv ices? Patient declined 01/02/2025 Do you belong to any clubs o r organizations such as cheondoism groups, unions, fraternal or athletic groups, or [...] more drinks on one occasion? Never 01/14/2025 [facility] - [facility]ational Stress Questionnaire Answer Date [...] 0 01/14/2025 3:26 PM EDT Monica Moreno * Question Answer Date of Assessment [...] No 01/14/2025 3:27 PM EDT Jacky Moreno 6. Suicidal Behavior (Lifetime) No 3:27 PM EDT Brit Moreno documented as of this encounter Plan of Treatment Upcoming Encounters Date Type Department Care Team (Late st Contact Info) Description 01/30/2025 1:00 PM EDT Office Visit [facility] [address] [place] [address] Nicki Thomas MD [address] [place] [address] 04/06/2025 11:00 AM EST Clinical Support [facility] [address] [place] [address] 04/20/2025 3:00 PM EST Appointment [facility] [address], [address] [place] [address] 04/20/2025 3:20 PM EST Office Visit [facility] [address], [address] [place] [address] Teri Jose PA [address] [place] [address] 10/26/2025 1:00 PM EDT Appointment [facility] [place] [address] [address] [facility] [address] [place] [address] 10/26/2025 2:30 PM EDT Office Visit [facility] [address] [facility] [place] [address] Michaela Lloyd, MARINE FISHERIES TECHNICIAN [address] [facility] [address] [place] [address] documented as of this encounter [...] documented as of this encounter Care Teams Environmental Services Attendant Relationship Specialty Start Date End Date Nicki Thomas MD [address] [place] [address] PCP - General 10/08/20 Reji Gonsales MD [id number] [place] [id number] Consulting Physician Radiation Oncology 08/02/21 documented as of this encounter
--- OUTSIDE RECORDS SUMMARY | 2025-01-16 12:48 | XMS_ITS | Clinical Summary ---
Author Organization [facility] Address [address] [place] [address] Care Team Providers Care Concrete Floater Name Role Phone Nicki Thomas MD Primary Care Provider [phone] Reji Gonsales MD Unavailable [phone] Allergies Active Allergy Reactions Criticality Noted [...] if needed for wheezing. 18 g 11 04/14/20 22 Active ketoconazole (NIZOral) 2 % cream Apply 1 Application topically 2 (two) times a day. 01/08/20 24 Active diazePAM (Valium) 2 MG tabletIndication s:Meniere's disease of right ear TAKE 1 TABLET BY MOUTH THREE TIMES A DAY NEEDED 90 tablet 3 02/06/20 24 Active cyclobenzaprine (Flexeril) 5 MG tabletIndication s:Acute back pain, unspecified back location, unspecified back pain laterality,Acute pain of right shoulder Take 1 tablet (5 mg) by mouth 2 (two) times a day if needed for muscle spasms. 30 tablet 03/04/20 24 Active omega-3 (Fish Oil) 1000 MG capsule Take 1 capsule (1,000 mg) by mouth 1 (one) time each day. 90 capsule 2 03/07/20 24 Active cholecalciferol (Vitamin D3) 25 MCG (1000 UT) tablet Take 1 tablet (1,000 Units) by mouth 1 (one) time each day. 90 tablet 2 03/07/20 24 Active alpha tocopherol (Vitamin E) 400 units capsule Take 1 capsule (400 Units) by mouth 1 (one) time each day. 90 capsule 2 03/07/20 24 Active Calcium & Magnesium Carbonates 975-232 MG tablet Take 1 tablet by mouth 1 (one) time each day. 90 tablet 2 03/07/20 24 Active Calcium-Magnesiu m 500-250 MG tablet TAKE 1 TABLET BY MOUTH DAILY. 90 tablet 3 03/11/20 24 Active ibuprofen 800 MG tabletIndication s:Chronic bilateral low back pain with left-sided sciatica Take 1 tablet (800 mg) by mouth 1 (one) time each day if needed for moderate pain. 90 tablet 3 06/19/19 25 Active pantoprazole (Protonix) 20 MG EC tabletIndication s:Gastroesophage al reflux disease with esophagitis, unspecified whether hemorrhage,Nause a Take 1 tablet (20 mg) by mouth daily before breakfast. Do not crush, chew, or split. 90 tablet 2 07/16/19 25 Active Additional Information Patient not taking.Reported on 01/14/2025 metoprolol succinate XL (Toprol-XL) 25 MG 24 hr tabletIndication s:Essential (primary) hypertension Take 1 tablet (25 mg) by mouth daily. Do not crush or chew. 30 tablet 2 07/18/19 25 Active Additional Information Patient not taking.Reported on 01/14/2025 amLODIPine (Norvasc) 5 MG tabletIndication s:Essential (primary) hypertension Take 1 tablet (5 mg) by mouth daily. 30 tablet 5 07/18/19 25 Active fluticasone (Flonase) 50 MCG/ACT nasal sprayIndications :Allergic rhinitis, unspecified seasonality, unspecified trigger Administer 1 spray into each nostril daily. Shake gently. Before first use, prime pump. After use, clean tip and replace cap. 48 g 11/05/19 25 Active Additional Information Patient not taking.Reported on 01/14/2025 potassium chloride CR (K-Tab) 20 MEQ ER tablet Take 1 tablet by mouth daily. Do not crush, chew, or split. 90 tablet 1 11/05/19 25 Active valACYclovir (Valtrex) 1 g tabletIndication s:HSV infection Take 1 tablet by mouth 2 times a day. 30 tablet 3 01/15/20 25 Active valACYclovir (Valtrex) 1 g tablet Take 1 tablet (1,000 mg) by mouth 2 (two) times a day. 30 tablet 3 04/17/20 23 025 Discontinu ed(Reorder ) predniSONE (Deltasone) 20 MG tabletIndication s:ETD (Eustachian tube dysfunction), left,Pain of left sacroiliac joint Take 2 tablets by mouth daily for 5 days. 10 tablet 01/03/20 25 025 Additional Information Patient not taking.Reported on 01/14/2025 meclizine (Antivert) 25 MG tabletIndication s:Vertigo Take 1 tablet by mouth 3 times a day as needed for dizziness for up to 7 days. 21 tablet 01/03/20 25 025 Active Problems Problem Noted Date Diagnosed Date Sleep apnea 09/09/2024 Facial swelling 09/09/2024 Sinusitis 09/09/2024 Excessive tear production of right lacrimal glan d 09/09/2024 Xerostomia 09/09/2024 Viral URI 05/08/2024 ETD (Eustachian tube dysfunction), right 024 Bilateral hip pain 04/14/2024 Routine general medical examination at [facility] facility 12/13/2023 Age-related osteoporosis wit hout current [...] Encounters Date Type Department Care Team Description 01/16/2025 Results Follow-Up [facility] [address] [place] [address] Raine Jean Baptiste MD 01/15/2025 Telephone [facility] [address] [place] [address] Raine Jean Baptiste MD 01/14/2025 3:20 PM EDT Office Visit [facility] [address] [place] [address] Raine Jean Baptiste MD Painful urination (Primary Dx); HSV infection 01/14/2025 Travel 01/14/2025 Refill [facility] [address] [place] [address] Nicki Thomas MD HSV infection (Primary Dx) 01/07/2025 Telephone [facility] [address] [place] [address] Nicki Thomas MD [facility] Clinical Concern/Question (Possible UTI) 01/05/2025 Results Follow-Up [facility] [address] [place] [address] Zenia Worthy, MARCELO, DNP 01/02/2025 9:00 AM EDT Office Visit [facility] [address] [place] [address] Zenia Worthy, POLITICAL ORGANIZER, DNP ETD (Eustachian tube dysfunction), left (Primary Dx); Pain of left sacroiliac joint; Vertigo; Muscle cramps 01/02/2025 Travel 10/31/2024 Refill [facility] [address] [place] [address] Nicki Thomas MD Allergic rhinitis, unspecified seasonality, unspecified trigger 10/17/2024 11:00 AM EDT Office Visit [facility] Endocrinology [address] [place] [address] Spencer Leonard MD Thyroid nodule (Primary Dx) 10/17/2024 Orders Only External Location [address] [place] [address] Provider, External 10/17/2024 Travel from Last 3 Months Immunizations Immunization [...] any clubs o r organizations such as jainism groups, unions, fraternal or athletic groups, or [...] place to sleep or slept in a correction (including now)? No 12/07/2023 PHQ-9 Answer Date [...] declined 01/02/2025 How often do you attend jainism or rastafari serv ices? Patient declined 01/02/2025 Do you belong to any clubs o r organizations such as jainism groups, unions, fraternal or athletic groups, or [...] more drinks on one occasion? Never 01/14/2025 [facility] - Occupational Stress [...] any time in the past 12 m [facility], were you homeless or living in a correction (including now)? No 01/02/2025 Safety and Environment [...] Recorded In the past 12 months has [employer], gas, oil, or water company threatened to [...] Mass Index 28.33 01/14/2025 3:19 PM EDT Plan of Treatment Upcoming Encounters Date Type Department Care Team (Late st Contact Info) Description 01/30/2025 1:00 PM EDT Office Visit [facility] [place] [address] [place] [address] 04/06/2025 11:00 AM EST Clinical Support [facility] Laboratory Services [address] [place] [address] 04/20/2025 3:00 PM EST Appointment [facility] Bone & Mineral Metabolism [address] [facility], [address] [place] [address] 04/20/2025 3:20 PM EST Office Visit [facility]eral Metabolism [address], [address] [place] [address] Teri Jose, PA [address] [place] [address] 10/26/2025 1:00 PM EDT Appointment [facility] [address] [facility] [address] [place] [address] 10/26/2025 2:30 PM EDT Office Visit [facility] [address] [facility]nd [place] [address] Michaela Lloyd, POLITICAL ORGANIZER [address] [facility] [address] [facility] [address] [place] [address] Health Maintenance Due Date Last Done Comments [facility]-Hepatitis C Screening 1955 [id number] Vaccine (#1) 1961 [facility]-DTaP,Tdap,and Td Vaccines (1 - Tdap) 1975 [facility]-Pneumococcal Vaccine: 50+ Years (1 of 2 - PCV) 1975 [facility]-Zoster Vaccines (1 of 2) 1975 CT Colonography 2001 Colonoscopy 2001 FIT 2001 FOBT 2001 Sigmoidoscopy 2001 [facility]-RSV Vaccine: 60+ Years or (1 - Risk 60-74 years 1-dose series) 2016 [facility]-Medicare Annual Wellness (AWV) 12/12/2024 12/13/2023, 01/11/2022 [facility]-Influenza [...] Additional history exists [facility]-Obesity Intervention Completed 025, 10/17/2024, 09/30/2024, Additional history exists HPV Vaccines Aged Out [...] Routine 01/14/2025 3:46 PM EDT Painful urination COMPREHENSIVE METABOLIC PANEL, PLASMA Routine 01/02/2025 9:50 AM EDT Muscle cramps POC ULTRASOUND 10/17/2024 DEXA BONE DENSITY Routine 04/14/2024 2:4 4 PM EST Age-related osteoporosis without current pathological fracture HEMOGLOBIN A1C Routine 10/29/2023 9:52 AM EDT Routine general medical examination at a [facility] care facility LAB COLOGUARD COLON CANCER SCREEN Routine 09/08/2022 9:40 AM EDT Screen for colon cancer PAP TEST - CYTOLOGY Routine 01/11/2022 1 0:42 AM EDT Encounter for Pap smear of cervix with HPV DNA cotesting from Last 3 Months or Most Recently Relevant to Health Maintenance Results * Urine Culture (01/14/2025 4:19 PM EDT) Pathologist [facility] Culture No growth at day 1 01/15/2025 2:30 PM EDT [facility] Urine Urine specimen obtained by clean catch procedure / Unknown Non-blood Collection / Unknown 01/14/2025 4:19 PM EDT 01/14/2025 4:19 PM EDT us Raine Jean Baptiste MD LAB MICROBIOLOGY - GENERAL ORDERABLES Final Result [facility] [address] [place] [address] * POCT Urinalysis dipstick (01/14/2025 3:46 PM EDT) Pathologist [facility] POCT Urine Color Yellow POCT Urine Clarity Clear POCT Glucose Urine Negative Negative mg/dL POCT Bilirubin, Urine Negative Negative POCT Ketones, Urine Negative Negative mg/dL POCT Specific [place], Urine 1.020 POCT Blood, Urine Negative Negative POCT pH, Urine 6.5 5.0 to 8.0 POCT Protein, Urine Negative Negative mg/dL POCT Urobilinogen, Urine 0.2 0.2, 1 E.U./dL POCT Nitrite, Urine Negative Negative POCT Leukocyte Esterase, Urine Negative Negative Test Strip Lot Number [id number] Test Strip Lot Expiration 08/24/25 Urine Urine specimen obtained by clean catch procedure / Unknown 01/14/2025 3:46 PM EDT us Raine Jean Baptiste MD POINT OF CARE TEST ENTER/E DIT ORDERABLES Final Result * Comprehensive Metabolic Panel, Plasma (01/02/2025 9:50 AM EDT) Glucose, Plasma 87 74 - 99 mg/dL 01/02/2025 3:09 PM EDT [facility] BUN, Plasma 11 8 - 23 mg/dL 01/02/2025 3:09 PM EDT [facility] Creatinine, Plasma 0.65 0.60 - 1.10 mg/dL 01/02/2025 3:09 PM EDT [facility] BUN/Creatinine Ratio 17 01/02/2025 3:09 PM EDT [facility] Sodium, Plasma 143 136 - 145 mmol/L 01/02/2025 3:09 PM EDT [facility] Potassium, Plasma 3.8 3.6 - 4.9 mmol/L 01/02/2025 3:09 PM EDT [facility] Chloride, Plasma 106 97 - 107 mmol/L 01/02/2025 3:09 PM EDT [facility] CO2, Plasma 24 22 - 29 mmol/L 01/02/2025 3:09 PM EDT [facility] Anion Gap 13 6 - 16 mmol/L 01/02/2025 3:09 PM EDT [facility] Total Calcium, Plasma 9.2 8.9 - 10.2 mg/dL 01/02/2025 3:09 PM EDT [facility] Total Protein 7.6 6.3 - 7.9 g/dL 01/02/2025 3:09 PM EDT [facility] Albumin, Plasma 4.6 3.5 - 5.2 g/dL 01/02/2025 3:09 PM EDT [facility] AST, Plasma 24 10 - 35 U/L 01/02/2025 3:09 PM EDT [facility] ALT, Plasma 28 10 - 35 U/L 01/02/2025 3:09 PM EDT [facility] Alkaline Phosphatase, Plasma 88 46 - 142 U/L 01/02/2025 3:09 PM EDT [facility] Total Bilirubin, Plasma 0.5 0.2 - 1.1 mg/dL 01/02/2025 3:09 PM EDT [facility] eGFRcr 96.0 mL/min/1.7 3m*2 01/02/2025 3:09 PM EDT [facility] Comment:Reported eGFRcr in m L/min/1.73m2 is based the CKD-EPI 2020 equation that does not use a race coefficient. Blood Venous blood specimen / Unknown Venipuncture / Unknown 01/02/2025 9:50 AM EDT 01/02/2025 9:50 AM EDT us Zenia Worthy APRN, DNP LAB BLOOD ORDERABLES Final Result [facility] [address] [place] [address] * POC Imaging (10/17/2024) Anatomical Region Laterality Modality Pelvis Other 10/17/2024 us External Provider IMG POINT OF CARE ULTRASOUND F inal Result * Dexa Bone Density (04/14/2024 2:44 PM EST) Anatomical Region Laterality Modality L-spine Radio Fluoroscop y Narrative 04/20/2024 3:32 PM EST [facility] [address] [place] [address] DXA Bone Densitometry Report: [Date of exam] BMD test performed using the Blurr DXA System (analysis version: 14.10) manufactured by [employer]. REFERRING PROVIDER: Dr. Teri Jose, [place] CLINICAL [...] bone density change or response to treatment. us Teri EDMONDS IMMinesh DXA PROCEDURES Final Resul t * Hemoglobin A1c (10/29/2023 9:52 AM EDT) Pathologist [facility] Hemoglobin A1c 5.4 <5.7 % 10/29/2023 1:20 PM EDT [facility] Blood Venous blood specimen / Unknown [...] Adults <6.0% Children and Adolescents <7.5% Source: [place] [employer] Association. Standards of medical care in diabetes,2017. Diabetes Care.2017:40 (suppl 1):S1-S135. HbA1c assay performed by an ion-exchange chromatography method that is certified traceable to the DCCT. us Zenia Worthy APRN, DNP LAB BLOOD ORDERABLES Final Result [facility] [address] [place] [id number] * Cologuard?? colon cancer screening (09/08/2022 9:40 AM EDT) Cologuard Negative Negative 09/16/2022 4:11 AM EDT [employer] (CLIA #:[id number]) Comment: NEGATIVE TEST RESULT. A negative Cologuard [...] screened with both Cologuard and colonoscopy. (Abhishek Zepeda et al, N Engl J Med 2014;370(14):0786-5262) The normal value (reference range) for this assay is negative. COLOGUARD RE-SCREENING RECOMMENDATION: Periodic colorectal cancer screening is an important part of preventive healthcare for asymptomatic individuals at average risk for colorectal cancer. Following a negative Cologuard result, the [place] Cancer Society and U.S. Multi-Society Task Force screening guidelines recommend a Cologuard re-screening interval of 3 years. References: [place] Cancer Society Guideline for Colorectal Cancer Screening: https://www.cancer.org/cancer/wwuvy-kadcdy-clkdre/ljgkkgwoe-qcmkkqtwx-gqihjrv/ac s-rec ommendations.html.; Adalberto CORONADO, Dannielle CARDOZA, Brett AndersonK, Colorectal Cancer Screening: Recommendations for Physicians and Patients from the U.S. Multi-Society Task Force on Colorectal Cancer Screening , Am J Gastroenterology 2017; 112:2677-6562. TEST DESCRIPTION: Composite algorithmic analysis of stool [...] screened with both Cologuard and colonoscopy. (Abhishek Zepeda et al, N Engl J Med 2014;370(14):2144-7187.) Cologuard may produce a false negative or false positive result (no colorectal cancer or precancerous polyp present at colonoscopy follow up). A negative Cologuard test result does not guarantee the absence of CRC or advanced adenoma (pre-cancer). The current Cologuard screening interval is every 3 years. ([place] Cancer Society and U.S. Multi-Society Task Force). Cologuard performance data in a 10,000 patient pivotal study using colonoscopy as the reference method can be accessed at the following location: www.CleverSet/results. Additional description of the Cologuard test process, warnings and precautions can be found at www.Symonicsrd.com. Stool specimen (specimen) 09/08/2022 9:40 AM EDT 09/09/2022 3:47 PM EDT Nicki Thomas MD LAB MOLECULAR DIAGNOSTICS NAVEEN [place] Final Result [employer] (CLIA #:[id number]) [address] [place] [address], * Pap Test (01/11/2022 10:42 AM EDT) Case Report Cytology Case: [id number] Authorizing Provider: Marina Elizabeth APRN Collected: 01/11/2022 1042 Ordering Location: [facility] Received: 01/11/2022 1042 Medicine First Screen: Leigh Khan Specimen: ThinPrep Pap Test, Liquid-Based Cervical/Vaginal, CERVICAL/VAGINAL 01/20/2022 1:06 PM EDT [facility] Interpretation NEGATIVE FOR INTRAEPITHELIAL LESION OR MALIGNANCY 01/20/2022 1:06 PM EDT [facility] at 1306 EDT Other Findings Atrophy and inflammation (Atrophic Vaginitis) 01/20/2022 1:06 PM EDT [facility] Specimen Adequacy Satisfactory for evaluation; transformation zone component cannot be definitely identified due to the presence of atrophy or other hormonal changes. Slide scanned and imaged by [employer] System with manual review of all selected [place]. 01/20/2022 1:06 PM EDT [facility] Cervical cytology is a screening test [...] results is suggested (please call Microbiology at [phone] for results). 01/20/2022 1:06 PM EDT [facility] Menstrual Status Post-Menopausal 1:06 PM EDT [facility] Contraceptive History Not Applicable 01/20/2022 1:06 PM EDT [facility] Screening Type Routine Screen 2021 1:06 PM EDT [facility] High Risk? No 01/20/2022 1:06 PM EDT [facility] HPV Testing Requested? Request HPV Testing Regardless of Pap Test Findings 01/20/2022 1:06 PM EDT [facility] Previous Cancer History Yes 01/20/2022 1:06 PM EDT [facility] Comment:breast cancer Clinical Information Z12.4 - Encounter for Pap smear of cervix with HPV DNA cotesting [ICD-10-CM] 01/20/2022 1:06 PM EDT [facility] Last Menstrual Period 12/21/2014 01/20/2022 1:06 PM EDT [facility] Swab Vaginal and cervical cytologic material / Unknown Non-blood Collection / Unknown 01/11/2022 10:42 AM EDT 01/11/2022 10:42 AM EDT us Marina Elli Elizabeth POLITICAL ORGANIZER LAB CYTOLOGY ORDERABLES Final R [facility] [address] [place] [address] from Last 3 Months or Most Recently Relevant to Health Maintenance Insurance MEDICARE Care Teams Concrete Floater Relationship Specialty Start Date End Date Nicki Thomas MD [address] [place] [phone] PCP - General 10/08/20 Reji Gonsales MD [address] [facility] [address] [place] [id number] Consulting Physician Radiation Oncology 08/02/21
--- OUTSIDE RECORDS SUMMARY | 2025-01-16 12:48 | XMS_ITS | Encounter Summary ---
Author Organization Healthcare Address [address] [place] [address] Care Team Providers Care Automation Application Engineer Name Role Phone Nicki Thomas MD Primary Care Provider [phone] Reji Gonsales MD Unavailable [phone] Encounter Details Date Type Department Care [...] often do you attend chur ch or denominational services? Never 12/07/2023 Do you belong to any clubs o r organizations such as denominational groups, unions, fraternal or athletic groups, or [...] place to sleep or slept in a half-way (including now)? No 12/07/2023 PHQ-9 Answer Date [...] declined 01/02/2025 How often do you attend denominational or denominational serv ices? Patient declined 01/02/2025 Do you belong to any clubs o r organizations such as denominational groups, unions, fraternal or athletic groups, or [...] drinks on one occasion? Patient declined [facility]/02/20[facility] Questionnaire Answer [...] were you homeless or living in a half-way (including now)? No 01/02/2025 Safety and Environment [...] Description 01/30/2025 1:00 PM EDT Office Visit [facility] [address] [facility] [place] [facility] [place] [address] Nicki Thomas MD [address] [place] [address] 04/06/2025 11:00 AM EST Clinical Support [facility] Laboratory Services [address] [place] [address] 04/20/2025 3:00 PM EST Appointment [facility] Bone & Mineral Metabolism [address] [facility], [address] [place] [address] 04/20/2025 3:20 PM EST Office Visit [facility] Mineral Metabolism [address] [facility], [address] [place] [address] Teri Jose, GREY [address] [place] [address] 10/26/2025 1:00 PM EDT Appointment [facility] [address] [facility] [address] [place] [address] 10/26/2025 2:30 PM EDT Office Visit [facility] [address] [facility] [place] [address] Michaela Lloyd, INSPECTOR [employer] [address] [address] documented as of this encounter [...] documented as of this encounter Care Teams Automation Application Engineer Relationship Specialty Start Date End Date Nicki Thomas MD [address] [place] [address] PCP - General 10/08/20 Reji Gonsales MD [id number] [place] [id number] Consulting Physician Radiation Oncology 08/02/21 documented as of this encounter
--- OUTSIDE RECORDS SUMMARY | 2025-01-16 12:48 | XMS_ITS | Encounter Summary ---
Author Organization Healthcare Address [address] [place] [address] Care Team Providers Care Sweatband Separator Name Role Phone Nicki Thomas MD Primary Care Provider [phone] Reji Gonsales MD Unavailable Encounter Details Date Type Department Care Team (Late st Contact Info) Description 01/05/2025 Results Follow-Up [facility] [address] [place] [address] Zenia Worthy, CONTROLS ENGINEER, DNP [address] [place] [address] Social History Tobacco Use Types [...] often do you attend chur ch or yazidism services? Never 12/07/2023 Do you belong to [...] place to sleep or slept in a alf (including now)? No 12/07/2023 PHQ-9 Answer Date [...] How often do you attend uatsdin or yazidism serv ices? Patient declined 01/02/2025 Do you [...] drinks on one occasion? Patient declined 01/02/2025 [facility] - Occupational [...] any time in the past 12 m [facility], were you homeless or living in a alf (including now)? No 01/02/2025 Safety and Environment [...] Recorded In the past 12 months has [employer], gas, oil, or water company threatened [...] Description 01/30/2025 1:00 PM EDT Office Visit [facility] [address] [place] [address] Nicki Thomas MD [address] [place] [address] 04/06/2025 11:00 AM EST Clinical Support [facility] Laboratory Services [address] [facility], 1st [place] [address] 04/20/2025 3:00 PM EST Appointment [facility] Bone & Mineral Metabolism [address] [facility], [address] [place] [address] 04/20/2025 3:20 PM EST Office Visit [facility] Bone & Mineral Metabolism [address] [facility], [address] [place] [address] Teri Jose, PA [address] [place] [address] 10/26/2025 1:00 PM EDT Appointment [facility] [place] [facility] [address] [facility] [address] [place] [address] 10/26/2025 2:30 PM EDT Office Visit [facility] Breast [facility] [address] [facility], 2nd [place] [address] Michaela Lloyd, CONTROLS ENGINEER [address] [facility] [address] Khoury [facility] [address] [place] [address] documented as of this encounter [...] documented as of this encounter Care Teams Sweatband Separator Relationship Specialty Start Date End Date Nicki Thomas MD [address] [place] [address] PCP - General 10/08/20 Reji Gonsales MD 800 [facility] [address] [place] [address] Consulting Physician Radiation Oncology 08/02/21 documented as of this encounter
--- OUTSIDE RECORDS SUMMARY | 2025-01-16 12:48 | XMS_ITS | Encounter Summary ---
Author Organization Healthcare Address [address] [place] [address] Care Team Providers Care Student Finance Advisor Name Role Phone Nicki Thomas MD Primary Care Provider [phone] Reji Gonsales MD Unavailable [phone] Encounter Details Date Type Department Care Team (Late st Contact Info) Description 01/24/2024 Outside Procedure External Location [address] [place] [id number] Nicki Thomas MD [address] [place] [address] Social History Tobacco Use Types Packs/Day [...] Recorded Patient Health Questionnaire-2 Score 0 01/24/2024 [facility] Occupat ional [facility] [...] place to sleep or slept in a mcc (including now)? No 12/07/2023 Safety and Environment [...] 1:00 PM EDT Office Visit [facility] [address] [place] [address] Nicki Thomas MD [address] [place] [address] 04/06/2025 11:00 AM EST Clinical Support [facility] Laboratory Services [address] [facility], 1st [place] [address] 04/20/2025 3:[address] [facility] Bone & Mineral Metabolism [address] [facility], [address] [place] [address] 04/20/2025 3:20 PM EST Office [facility] Bone & Mineral Metabolism [address] [facility], [address] [place] [address] Teri Jose, GREY [address] [facility] [address] [place] [address] 10/26/2025 1:00 PM EDT Appointment [facility] Breast [facility] [address] [facility] 800 [place] [address] 10/26/2025 2:30 PM EDT Office Visit [facility] Breast [facility] [place] [address] [facility], 2nd [place] [address] Michaela Lolyd, JOINT SUPERVISOR 800 [facility] [address] [place] [address] documented as of this encounter Procedures Procedure Name Priority Date/Time Associated Diagnosis Comments XR CERVICAL SPINE COMPLETE 4 TO 5 VIEWS 01/24/2024 4:15 PM EDT documented in this encounter Results * XR Cervical Spine Complete 4 To 5 Views (01/24/2024 4:15 PM EDT) Anatomical Region Laterality Modality Spine, C-spine Digital Radiogra phy 01/24/2024 4:15 PM EDT Narrative 01/27/2024 9:38 AM EDT [address] [address] Name: CHIQUITA KURTZ Exam Date: 01/24/2024 : 1955 Age 68 years Gender: F Physician: NICKI PACE Facility: [facility] Facility HSV: Outpatient Exam: CERVICAL SPINE MIN [...] Thank you for referring CHIQUITA KURTZ to [facility]. Legally authenticated by AMANDO SANTIAGO 2024-01-24 16:59:00 Procedure Note Provider, Generic [place] - 01/27/[address] [address] Name: CHIQUITA KURTZ Exam Date: 01/24/2024 : 1955 Age 68 years Gender: F Physician: NICKI PACE Facility: [facility] Facility HSV: Outpatient Exam: CERVICAL SPINE MIN [...] Thank you for referring CHIQUITA KURTZ to [facility]. Legally authenticated by AMANDO SANTIAGO 2024-01-24 [...] documented as of this encounter Care Teams Student Finance Advisor Relationship Specialty Start Date End Date Nicki Thomas MD [address] [place] [address] PCP - General 10/08/20 Reji Gonsales MD 800 [facility] [address] [place] [address] Consulting Physician Radiation Oncology 08/02/21 documented as of this encounter
--- OUTSIDE RECORDS SUMMARY | 2025-01-16 12:48 | XMS_ITS | Encounter Summary ---
Author Organization Healthcare Address [address] [id number] Care Team Providers Care Cook Helper Name Role Phone Nicki Thomas MD Primary Care Provider [phone] Reji Gonsales MD Unavailable [phone] Reason for Visit * Reason Onset Date Comments HCN Clinical Concern/Question 01/07/2025 Po ssible UTI Encounter Details Date Type Department Care Team (Late st Contact Info) Description 01/07/2025 Telephone [facility] Medicine [address] [place] [address] Nicki Thomas MD [address] [place] [address] HCN Clinical Concern/Question (Possible UTI) [...] often do you attend chur ch or anglican services? Never 12/07/2023 Do you belong to any clubs o r organizations such as mosque groups, unions, fraternal or athletic groups, or [...] declined 01/02/2025 How often do you attend mosque or anglican serv ices? Patient declined 01/02/2025 Do you belong to any clubs o r organizations such as mosque groups, unions, fraternal or athletic groups, or [...] drinks on one occasion? Patient declined 01/02/2025 [facility] - Occupational Stress Questionnaire Answer Date [...] any time in the past 12 m [facility], were you homeless or living in a [...] Recorded In the past 12 months has [employer], gas, oil, or water company threatened to [...] and declined appointment, she will go to [facility] * Telephone Encounter - Eliz Renteria - 01/07/2025 1:27 PM EDT Clinical Concern/Question Reason for Call: pt got a [employer] urine test and it turned purple, she thinks she may have an infection. She would like to speak to a nurse to see if antibiotic can be called in Best contact number: [phone] (mobile) Optimal time of day to reach [...] Upcoming Encounters Date Type Department Care Team ([facility] st Contact Info) Description 01/30/2025 1:00 PM EDT Office Visit [facility] [address] [place] [address] Nicki Thomas MD [address] [place] [address] 04/06/2025 11:00 AM EST Clinical Support [facility] Laboratory Services [address] [facility], 1st [place] [address] 04/20/2025 3:00 PM EST Appointment [facility] Bone & Mineral Metabolism [address] [facility], [address] [place] [address] 04/20/2025 3:20 PM EST Office Visit [facility] Bone & Mineral Metabolism [address] [facility], [address] [place] [address] Teri Jose, GREY [address] [facility] [address] [place] [address] 10/26/2025 1:00 PM EDT Appointment [facility] [address] [place] [address] 10/26/2025 2:30 PM EDT Office Visit [facility] Breast Care Center [address] [facility], 2nd [place] [address] Michaela Lloyd, LAY OUT INSPECTOR [address] [facility] [address] [place] [address] documented as of this encounter [...] documented as of this encounter Care Teams Cook Helper Relationship Specialty Start Date End Date Nicki Thomas MD [address] [place] [address] PCP - General 10/08/20 Reji Gonsales MD [id number] [place] [address] Consulting Physician Radiation Oncology 08/02/21 documented as of this encounter
--- OUTSIDE RECORDS SUMMARY | 2025-01-16 12:48 | XMS_ITS | Encounter Summary ---
Author Organization Healthcare Address [address] [id number] Care Team Providers Care Actuarial Technician Name Role Phone Nicki Thomas MD Primary Care Provider [phone] Reji Gonsales MD Unavailable [phone] Encounter Details Date Type Department Care Team (Late st Contact Info) Description 01/15/2025 Telephone [facility] Medicine [address] [place] [address] Raine Jean Baptiste MD [address] [place] [address] Social History Tobacco Use Types [...] often do you attend chur ch or baptism services? Never 12/07/2023 Do you belong to any clubs o r organizations such as orthodoxy groups, unions, fraternal or athletic groups, or [...] place to sleep or slept in a custodial (including now)? No 12/07/2023 PHQ-9 Answer Date [...] declined 01/02/2025 How often do you attend orthodoxy or baptism serv ices? Patient declined 01/02/2025 Do you belong to any clubs o r organizations such as orthodoxy groups, unions, fraternal or athletic groups, or [...] more drinks on one occasion? Never 01/14/2025 [facility] of Occupat ional Health - [...] any time in the past 12 m [facility], were you homeless or living in a custodial (including now)? No 01/02/2025 Safety and Environment [...] Recorded In the past 12 months has [employer], gas, oil, or water company threatened to [...] encounter Miscellaneous Notes * Telephone Encounter - Adrien Houser - 01/15/2025 2:28 PM EDT Status Update Call #2 2nd call regarding the status of the initial request. Best contact number: [phone] (mobile) Optimal time of day to reach caller: ANYTIME Additional comments/information from caller: patient will not answer after 3:00 try in the morning Note: Please do not reply to this message. Follow-up communication and further actions as a result of this message need to be communicated with the patient directly, if the patient is not active onMyChart. If the patient is active on MyChart, they will receive notification of the communication/outcome via AnaBioshart. * Telephone Encounter - Brit Moreno - 01/15/2025 1:38 PM EDT Attempted to contact. Left VM * Telephone Encounter - Latisha Benton - 01/15/2025 10:56 AM EDT Clinical Concern/Question Reason for Call: Patient saw Dr. Jean Baptiste 01/14. Patient is asking if there is a cream she can use.Patient has been using [employer] and it is not helpful. Patient uses [facility] in [place]. Please call patient to advise. Best contact number: [phone] (mobile) Optimal time of day to reach caller: ANYTIME Additional comments/information from caller: None Note: Please do not reply to this message. Follow-up communication and further actions as a result of this message need to be communicated with the patient directly, if the patient is not active onMyChart. If the patient is active on MyChart, they will receive notification of the communication/outcome via VGTel. documented in this encounter Plan of Treatment Upcoming Encounters Date Type Department Care Team (Late st Contact Info) Description 01/30/2025 1:00 PM EDT Office Visit [facility] [address] [place] [address] Nicki Thomas MD [address] [place] [address] 04/06/2025 11:00 AM EST Clinical Support [facility] Laboratory Services [address] [facility], 1st [place] [address] 04/20/2025 3:00 PM EST Appointment [facility] Bone & Mineral Metabolism [address] [facility], [address] [place] [address] 04/20/2025 3:20 PM EST Office Visit [facility] Bone & Mineral Metabolism [address] [facility], [address] [place] [address] Teri Jose PA [address] [facility] [address] [place] [address] 10/26/2025 1:00 PM EDT Appointment [facility] [address] Building [address] [place] [address] 10/26/2025 2:30 PM EDT Office Visit [facility] [address] [facility], 2nd [place] [address] Michaela Lloyd, HAZMAT CDL A DRIVER [address] [facility] [address] [place] [address] documented as of this encounter [...] documented as of this encounter Care Teams Actuarial Technician Relationship Specialty Start Date End Date Nicki Thomas MD [address] [place] [address] PCP - General 10/08/20 Reji Gonsales MD 800 [facility] [address] [place] [address] Consulting Physician Radiation Oncology 08/02/21 documented as of this encounter
--- OUTSIDE RECORDS SUMMARY | 2025-01-16 12:48 | XMS_ITS | Encounter Summary ---
Author Organization Healthcare Address [address] [place] [address] Care Team Providers Care Aircraft Electrician Name Role Phone Nicki Thomas MD Primary Care Provider Reji Gonsales MD Unavailable [phone] Encounter Details Date Type Department Care Team (Late st Contact Info) Description 01/24/2024 Outside Procedure External Location [address] [place] [id number] Nicki Thomas MD [address] [place] [address] Social History Tobacco Use Types Packs/Day [...] any clubs o r organizations such as advent groups, unions, fraternal or athletic groups, or [...] Recorded Patient Health Questionnaire-2 Score 0 01/24/2024 [facility] Occupat ional Health - Occupational [...] 1:00 PM EDT Office Visit [facility] [address] [place] [address] Nicki Thomas MD [address] [place] [address] 04/06/2025 11:00 AM EST Clinical Support [facility] Laboratory Services [address] [facility], 1st [place] [address] 04/20/2025 3:00 PM EST Appointment [facility] Bone & Mineral Metabolism [address] [facility], [address] [place] [address] 04/20/2025 3:20 PM EST Office Visit [facility] Bone & Mineral Metabolism [address] [facility], [address] [place] [address] Teri Jose, GREY [address] [facility] [address] [place] [address] 10/26/2025 1:00 PM EDT Appointment [facility] Breast [facility] Comprehensive Breast Care Center [facility] [address] [facility] [address] [place] [address] 10/26/2025 2:30 PM EDT Office Visit [facility] Breast Care [place] [address] [facility], 2nd [place] [address] Michaela Lloyd, SHEET TAILER 800 [facility] [address] [place] [address] documented as of this encounter Procedures Procedure Name Priority Date/Time Associated Diagnosis Comments XR LUMBAR SPINE 2 OR 3 VIEWS 01/24/2024 4:15 PM EDT documented in this encounter Results * XR Lumbar Spine 2 or 3 Views (01/24/2024 4:15 PM EDT) Anatomical Region Laterality Modality Spine, L-spine Digital Radiogra phy 01/24/2024 4:15 PM EDT Narrative 01/27/2024 9:34 [place] [address] Name: CHIQUITA KURTZ Exam Date: 01/24/2024 : 1955 Age 68 years Gender: F Physician: NICKI PACE [facility] Facility HSV: Outpatient Exam: LUMBAR [...] Thank you for referring CHIQUITA KURTZ to [facility]. Legally authenticated by AMANDO SANTIAGO 2024-01-24 16:59:00 Procedure Note Provider, Generic [place] - 01/27/2024 [place] [address] Name: CHIQUITA KURTZ Exam Date: 01/24/2024 : 1955 Age 68 years Gender: F Physician: NICKI PACE [facility] Facility HSV: Outpatient Exam: LUMBAR [...] Thank you for referring CHIQUITA KURTZ to [facility]. Legally authenticated by AMANDO SANTIAGO 2024-01-24 16:59:00 [...] documented as of this encounter Care Teams Aircraft Electrician Relationship Specialty Start Date End Date Nicki Thomas MD [address] [place] [address] PCP - General 10/08/20 Reji Gonsales MD [address] [place] [address] Consulting Physician Radiation Oncology 08/02/21 documented as of this encounter
--- OUTSIDE RECORDS SUMMARY | 2025-01-16 12:48 | XMS_ITS | Encounter Summary ---
Author Organization Healthcare Address [address] [id number] Care Team Providers Care Automobile Club Information Clerk Name Role Phone Nicki Thomas MD Primary Care Provider [phone] Reji Gonsales MD Unavailable [phone] Andrey Cordon Unavailable Unavailable Cherise Hart LPN Unavailable Unavailabl e Reason for Visit * Reason Comments Med Refill Encounter Details Date Type Department Care Team (Late Contact Info) Description 10/11/2022 Refill Family [facility] Community Medicine [address] [place] [address] Marina Elizabeth, CRYSTALIZER OPERATOR [address] [place] [address] Sprain of temporomandibular joint, initial [...] Description 01/30/2025 1:00 PM EDT Office Visit [facility] Community Medicine 202 [place] [address] Nicki Thomas MD [address] [place] [address] 04/06/2025 11:00 AM EST Clinical Support [facility] Laboratory Services [address], 1st [place] [address] 04/20/2025 3:00 PM EST Appointment [facility] Bone & Mineral Metabolism [address] [facility], [address] [place] [address] 04/20/2025 3:20 PM EST Office Visit [facility] Bone & Mineral Metabolism [address] [facility], [address] [place] [address] Teri Jose, GREY [address] [place] [address] 10/26/2025 1:00 PM EDT Appointment [facility] Breast [facility] Comprehensive Breast Care Center [place] [address] [address] [facility] [address] [place] [address] 10/26/2025 2:30 PM EDT Office Visit [facility] Breast Care [place] [address] [facility], 2nd [place] [address] Michaela Lloyd, CRYSTALIZER OPERATOR 800 [facility] [address] [address] documented as of this encounter Visit Diagnoses Diagnosis Sprain of temporomandibular joint, initial encounter documented in this encounter Additional Health Concerns Infection Onset Date Last Indicated Resolved Time Rickettsial fevers, 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, tickborne typhus fever) 12/26/2021 12/26/2021 11/30/2022 3:11 PM E DT Assessment Noted Time A fall risk assessment has been complete d for the patient 10/09/2022 2:05 PM EDT A Body Mass Index follow-up plan has been documented for the patient 08/17/2022 9:25 AM EDT documented as of this encounter Care Teams Automobile Club Information Clerk Relationship Specialty Start Date End Date Nicki Thomas MD [address] [place] [address] PCP - General 10/08/20 Reji Gonsales MD 800 [facility] [address] [place] [address] Consulting Physician Radiation Oncology 08/02/21 Andrey Cordon [address] [address] Community Health Worker 10/29/23 11/05/23 Cherise Hart LPN VALUE-BASED TRANSFORMATION PROGRAM TCM Nurse 12/05/23 01/04/24 documented as of this encounter
--- NOTE | 2025-01-16 13:00 | US_ITS ---
FINAL REPORT CLINICAL HISTORY: claudication, previous smoker, HTN, bilateral rest pain, LE numbness and hip pain. COMPARISON: None FINDINGS: ANKLE-BRACHIAL PRESSURE INDICES Pressure indices are as follows: RIGHT LOWER EXTREMITY: Ankle-brachial pressure index: 1.40 Comments: Normal LEFT LOWER EXTREMITY: Ankle-brachial pressure index: 1.47 Comments: Normal CONCLUSION: No evidence of significant obstructive peripheral vascular disease of the lower extremities Reviewed, Interpreted and Dictated by Enoc Hodges MD Transcribed by Shyla Saxena Authenticated and [facility][1]
== END 2025-01-16 23:59 | disposition home or self-care (01) ==
LOC: RT 12:46
PROVIDERS: PCP Family Medicine; Visit Provider Nurse Practitioner Family
DX: I73.9 Peripheral vascular disease, unspecified (principal); M79.604 Pain in right leg; M79.605 Pain in left leg; M25.559 Pain in unspecified hip; E78.5 Hyperlipidemia, unspecified; I10 Essential (primary) hypertension; R07.89 Other chest pain; R06.09 Other forms of dyspnea; R20.0 Anesthesia of skin; Z82.49 Family history of ischemic heart disease and other diseases of the circulatory system; Z87.891 Personal history of nicotine dependence
CPT/HCPCS: 93923

== ENCOUNTER 2025-05-25 11:20 | Emergency (ER) | payer MEDICARE, SELFPAY ==
--- OUTSIDE RECORDS SUMMARY | 2025-04-20 14:45 | XMS_ITS | Encounter Summary ---
Author Organization Healthcare Address [address] [place] [address] Care Team Providers Care Stem Crusher Name Role Phone Nicki Thomas MD Primary Care Provider Reji Gonsales MD Unavailable [phone] Encounter Details Date Type Department Care Team (Latest Contact Info) Description 04/20/2025 2:45 PM EST - 04/20/2025 11:59 PM [facility] [place] Hospital Encounter [facility] [address], [address] [place] [address] Age-related osteoporosis without current pathological fracture Discharge Disposition: Home or Self Care Social History Tobacco Use Types Packs/Day Years [...] often do you attend chur ch or voodoo services? Never 12/07/2023 Do you belong to any clubs o r organizations such as congregational groups, unions, fraternal or athletic groups, or [...] Recorded Patient Health Questionnaire-2 Score 0 10/17/2024 PHQ-9 Answer Date Recorded Patient Health Questionnaire-9 [...] declined 01/02/2025 How often do you attend congregational or voodoo serv ices? Patient declined 01/02/2025 Do you belong to any clubs o r organizations such as congregational groups, unions, fraternal or athletic groups, or [...] more drinks on one occasion? Never 01/14/2025 [facility] - Occupational Stress Questionnaire Answer Date [...] time in the past 12 m [facility], were you homeless or living in a [...] In the past 12 months has e [employer], [employer], oil, or water [email or web address] threatened to shut off services in your home? No 01/02/2025 PHQ-2A Answer Date Recorded Patient Health Questionnaire-2 Score 0 05/04/2023 Comments No Sex and Gender Information Value Date Recorded Sex Assigned at Not on file Legal Sex Female 6:13 PM EDT Gender Identity Not on file Sexual Orientation Not on file documented as of this encounter Medications at Time of Discharge alpha tocopherol (Vitamin E) 400 units capsuleIndications :Routine general medical examination at health care facility Take 1 capsule by mouth daily. 90 capsule 2 01/30/2025 amLODIPine (Norvasc) 2.5 MG tablet Take 1 tablet by mouth daily. 01/29/2025 Calcium & Magnesium Carbonates 975-232 MG tabletIndications: Routine general medical examination at health care facility Take 1 tablet by mouth daily. 90 tablet 2 01/30/2025 Calcium-Magnesium 500-250 MG tablet Take 1 tablet by mouth daily. 90 tablet 3 03/13/2025 cholecalciferol (Vitamin D3) 25 MCG (1000 UT) tabletIndications: Routine general medical examination at health care facility Take 1 tablet by mouth daily. 90 tablet 2 01/30/2025 cyclobenzaprine (Flexeril) 5 MG tabletIndications: Acute back pain, unspecified back location, unspecified back pain laterality,Acute pain of right shoulder Take 1 tablet by mouth 2 times a day as needed for muscle spasms. 30 tablet 01/30/2025 desloratadine (Clarinex) 5 MG tablet take 1 tablet by mouth once daily as needed for allergies 02/23/2025 diazePAM (Valium) 2 MG tabletIndications: Meniere's disease of right ear Take 1 tablet by mouth 3 times a day as needed for sedation (vertigo). 90 tablet 1 01/30/2025 fluticasone (Flonase) 50 MCG/ACT nasal spray 1 spray. 05/06/2024 hydroCHLOROthiazid e 12.5 MG PO tabletIndications: Essential (primary) hypertension Take 1 tablet by mouth daily. To replace amlodipine 2.5mg (if effective then will take off chart) 90 tablet 1 01/30/2025 ibuprofen 800 MG tabletIndications: Chronic bilateral low back pain with left-sided sciatica Take 1 tablet (800 mg) by mouth 1 (one) time each day if needed for moderate pain. 90 tablet 3 06/19/2024 ketoconazole (NIZOral) 2 % cream Apply 1 Application topically 2 (two) times a day. 01/08/2024 ketoconazole (NIZOral) 2 % shampoo Apply 1 Application topically 1 time per week. 01/15/2025 omega-3 (Fish Oil) 1000 MG capsuleIndications :Routine general medical examination at health care facility Take 1 capsule by mouth daily. 90 capsule 2 01/30/2025 potassium chloride CR (K-Tab) 20 MEQ ER tabletIndications: Muscle cramps Take 1 tablet by mouth daily. Do not crush, chew, or split. 90 tablet 1 01/30/2025 valACYclovir (Valtrex) 1 g tabletIndications: HSV infection Take 1 tablet by mouth 2 times a day. 30 tablet 3 01/30/2025 albuterol 108 (90 Base) MCG/ACT inhalerIndications :Acute bronchitis due to other specified organisms Inhale 2 puffs every 6 (six) hours if needed for wheezing. 18 g 11 04/14/2022 documented as of this encounter Plan of Treatment Upcoming Encounters Date Type Department Care Team ([facility] st Contact Info) Description 10/26/2025 1:00 PM EDT Appointment [facility] [address] [place] [address] 10/26/2025 2:30 PM EDT Office Visit [facility] [address] [place] [address] Michaela Lloyd, VALVE TECHNICIAN [address] [facility] [address] [place] [address] 04/26/2026 2:40 PM EST Appointment [facility] [address], [address] [place] [address] 04/26/2026 3:00 PM EST Office Visit [facility] [address], [address] [place] [address] Teri Jose PA [address] [place] [address] documented as of this encounter Procedures Procedure Name Priority Date/Time Associated Diagnosis Comments DEXA BONE DENSITY Routine 04/20/2025 2:4 5 PM EST Age-related osteoporosis without current pathological fracture documented in this encounter Results * Dexa Bone Density (04/20/2025 2:45 PM EST) Anatomical Region Laterality Modality L-spine Radio Fluoroscop y Narrative 04/21/2025 12:22 PM EST [facility] [address] [address], [place] [id number] DXA Bone Densitometry Report: [Date of exam] BMD test performed using the [employer] DXA System (analysis version: 14.10) manufactured by [employer]. REFERRING PROVIDER: GREY Keith CLINICAL INFORMATION: PATIENT NAME: Manju Bird PATIENT AGE: 70 y.o. LEGAL SEX: female RADIOGRAPHIC VIEWS: Sites scanned: AP Spine, HIP Right , and HIP Left COMPARISON STUDY: DXA Axial 2023 FINDINGS: Based on WHO criteria (post-menopausal female) the diagnosis is Osteoporosis The lowest T score is -3.2 in the Right Hip There is Stability compared to prior measurements The presence of arthritic or degenerative joint changes in the spine could artefactually increase measured BMD. TBS: The TBS L1-L4 of 1.126 indicates degraded microarchitecture TREATMENT RECOMMENDATIONS: Measured bone [...] or response to treatment. us Teri EDMONDS IMG DXA PROCEDURES Final Resul t documented in this encounter Visit Diagnoses Diagnosis Age-related osteoporosis without current pathological fracture documented in this encounter Additional Health Concerns Assessment Noted Time PHQ-9 Depression Total Score: 0 10/16/19 25 4:14 PM EDT A fall risk assessment has been complete d for the patient 04/20/2025 3:37 PM EST A Body Mass Index follow-up plan has been documented for the patient 04/20/2025 4:04 PM EST documented as of this encounter Care Teams Stem Crusher Relationship Specialty Start Date End Date Nicki Thomas MD [address] [place] [address] PCP - General 10/08/20 Reji Gonsales MD [id number] [place] [address] Consulting Physician Radiation Oncology 08/02/21 documented as of this encounter
--- OUTSIDE RECORDS SUMMARY | 2025-04-20 15:20 | XMS_ITS | Encounter Summary ---
Author Organization Healthcare Address [address] [place] [address] Care Team Providers Care Academic Support Director Name Role Phone Nicki Thomas MD Primary Care Provider [phone] Reji Gonsales MD Unavailable [phone] Reason for Referral * Consultation (Routine) - Authorized Specialty Diagnoses / Procedures Referred By Contac t Referred To Contact Diagnoses Age-related osteoporosis without current pathological fracture Teri Jose PA [address] [place] [phone] Phone: tel: fax: Referral ID Status Reason Start Date Expiration Date V isits Requested Visits Authorized [id number] Authorized 04/20/2025 10/20/2026 1 1 Reason for Visit * Reason Comments Follow-up osteoporosis Encounter Details Date Type Department Care Team (Late st Contact Info) Description 04/20/2025 3:20 PM EST Office Visit [facility] [address], [address] [place] [address] Teri Jose PA [address] [place] [address] Age-related osteoporosis without current pathological fracture (Primary Dx); Primary malignant neoplasm of breast, unspecified laterality Social History Tobacco Use Types Packs/Day Years Used Date Smoking Tobacco: Former Cigarettes 0.3 15 1 983 - 1997 Passive Smoke Exposure: Past Smokeless Tobacco: Never Tobacco Cessation:Counseling Given: Not Answered Alcohol Use Standard Drinks/Week Comments Not Currently [...] often do you attend chur ch or orthodoxy services? Never 12/07/2023 Do you belong to any clubs o r organizations such as presybeterian groups, unions, fraternal or athletic groups, or [...] declined 01/02/2025 How often do you attend presybeterian or orthodoxy serv ices? Patient declined 01/02/2025 Do you belong to any clubs o r organizations such as presybeterian groups, unions, fraternal or athletic groups, or [...] more drinks on one occasion? Never [facility] Occupational Stress Questionnaire Answer Date [...] in the past 12 m [facility], were you homeless or living in a jail (including now)? No 01/02/2025 Safety and Environment [...] Sign Reading Time Taken Comments Blood Pressure 136/77 04/20/2025 3:39 PM EST Pulse 78 04/20/2025 3:21 PM EST Temperature 36.6 C (97.9 F) 04/20/2025 3:21 PM EST Respiratory Rate - - Oxygen Saturation 94% 04/20/2025 3:2 1 PM EST Inhaled Oxygen Concentration - - Weight 66.7 kg (147 lb 0.8 oz) 04/20/20 3:21 PM EST with shoes Height 153.2 cm (5' 0.32 ) 04/20/2025 3 :21 PM EST with shoes Body Mass Index 28.42 04/20/2025 3:21 PM EST documented in this encounter Functional Status * BP Answer Date of Assessment Author 136/77 04/20/2025 3:39 PM Louise Swenson * Temp Answer Date of Assessment Author 97.9 04/20/2025 3:21 PM Louise Swenson * Temp src Answer Date of Assessment Author Oral 04/20/2025 3:21 PM Louise Swenson * Pulse Answer Date of Assessment Author 78 04/20/2025 3:21 PM Louise Swenson * SpO2 Answer Date of Assessment Author 94 04/20/2025 3:21 PM Louise Swenson * Height Answer Date of Assessment Author 60.315 04/20/2025 3:21 PM Louise Swenson * Weight Answer Date of Assessment Author 2352.75 04/20/2025 3:21 PM Louise Swenson * BMI (Calculated) Answer Date of Assessment Author 28.5 04/20/2025 3:21 PM Louise Waters * Percent Excess Weight Loss Answer Date of Assessment Author 0 04/20/2025 3:21 PM Louise Swenson * Total Weight Change Percent Answer Date of Assessment Author 2222 04/20/2025 3:21 PM Louise Swenson * Weight Change Since Preop Answer Date of Assessment Author 66.69 04/20/2025 3:21 PM Louise Swenson * Initial Excess Weight Answer Date of Assessment Author -46.07 04/20/2025 3:21 PM Louise Swenson * IBW in lbs (Bariatric) Answer Date of Assessment Author 101.58 04/20/2025 3:21 PM Louise Swenson * Weight Change Since Last Visit Answer Date of Assessment Author 66.69 04/20/2025 3:21 PM Louise Swenson * IBW in kg (Bariatric) Answer Date of Assessment Author 46.07 04/20/2025 3:21 PM Louise Swenson * Percent of IBW Answer Date of Assessment Author 5,106.9 04/20/2025 3:21 PM Louise Swenson * EBW (kg) Answer Date of Assessment Author 2,351.44 04/20/2025 3:21 PM EST Kash Dicksona * EBW (lbs) Answer Date of Assessment Author 2,346.4 04/20/2025 3:21 PM EST Harrisesa * Weight Change 24 hrs Answer Date of Assessment Author 1.7 04/20/2025 3:21 PM EST Harrisesa * Depression Screening Question Answer Date of Assessment Author Will the patient answer the depression risk questions? No 04/20/2025 3:37 PM EST Harrisesa * BSA (Calculated - sq m) Answer Date of Assessment Author 1.68 04/20/2025 3:21 PM EST Kash Dicksona * BMI (Calculated) Answer Date of Assessment Author 28.42 04/20/2025 3:21 PM EST Harrisesa * BP Location Answer Date of Assessment Author Left arm 04/20/2025 3:39 PM EST Harrisesa * IBW/kg (Calculated) Male Answer Date of Assessment Author 50.72 04/20/2025 3:21 PM EST Harrisesa * IBW/kg (Calculated) Female Answer Date of Assessment Author 46.22 04/20/2025 3:21 PM EST Harrisesa * IBW/kg (Calculated) Answer Date of Assessment Author 46.22 04/20/2025 3:21 PM EST Harrisesa * Weight in (lb) to have BMI = 25 Answer Date of Assessment Author 129.1 04/20/2025 3:21 PM EST Harrisesa * BMI (Calculated) Answer Date of Assessment Author 28.5 04/20/2025 3:21 PM EST Harrisesa * Percent Excess Weight Loss Answer Date of Assessment Author 0 04/20/2025 3:21 PM EST Harrisesa * Weight Change Since Preop Answer Date of Assessment Author 66.7 04/20/2025 3:21 PM EST Harrisesa * Initial Excess Weight Answer Date of Assessment Author -46.07 04/20/2025 3:21 PM EST RichardtonKash davisa * IBW in kg (Bariatric) Answer Date of Assessment Author 46.07 04/20/2025 3:21 PM EST Louise Dickson * IBW in lb (Bariatric) Answer Date of Assessment Author 101.58 04/20/2025 3:21 PM EST Louise Dickson * Weight Change Since Last Visit Answer Date of Assessment Author 66.7 04/20/2025 3:21 PM EST Louise Dickson * Percent of IBW Answer Date of Assessment Author 144.76 04/20/2025 3:21 PM EST Louise Dickson * EBW (kg) Answer Date of Assessment Author 20.62 04/20/2025 3:21 PM Louise Swenson * EBW (lb) Answer Date of Assessment Author 45.47 04/20/2025 3:21 PM Louise Swenson * Difference in Weight Since Last Visit Answer Date of Assessment Author 1.7 04/20/2025 3:21 PM Louise Swenson * Temp (in Celsius) for IROQUOIS IV Answer Date of Assessment Author 36.6 04/20/2025 3:21 PM EST Louise Dickson * IBW/kg (Calculated) Answer Date of Assessment Author 46.22 04/20/2025 3:21 PM EST Kash Dicksona * Adult Low Range Vt 6mL/kg Answer Date of Assessment Author 277.32 04/20/2025 3:21 PM EST Louise Dickson * Adult Moderate Range Vt 8mL/kg Answer Date of Assessment Author 369.76 04/20/2025 3:21 PM EST Louise Dickson * Adult High Range Vt 10mL/kg Answer Date of Assessment Author 462.2 04/20/2025 3:21 PM EST Louise Dickson * Pain Score Answer Date of Assessment Author 5 04/20/2025 3:23 PM EST Louise Dickson * Patient Position Answer Date of Assessment Author Sitting 04/20/2025 3:39 PM EST Louise Dickson * Pain Screening/Additional Assessments Question Answer Date of Assessment Author Pain Screening/Assessments Pain Screening 04/20/2025 3 :23 PM EST Kash Dicksona * Pain Screening Answer Date of Assessment Author 0-10 04/20/2025 3:23 PM EST Kash Dicksona * BP Answer Date of Assessment Author 136/77 04/20/2025 3:39 PM EST Kash Dicksona * Temp Answer Date of Assessment Author 97.9 04/20/2025 3:21 PM EST Louise Dickson * Temp src Answer Date of Assessment Author Oral 04/20/2025 3:21 PM EST Harrisesa * Pulse Answer Date of Assessment Author 78 04/20/2025 3:21 PM EST Louise Dickson * SpO2 Answer Date of Assessment Author 94 04/20/2025 3:21 PM EST Kash Dicksona * Height Answer Date of Assessment Author 60.315 04/20/2025 3:21 PM EST Kash Dicksona * Weight Answer Date of Assessment Author 2352.75 04/20/2025 3:21 PM EST Harrisesa * BSA (Calculated - sq m) Answer Date of Assessment Author 1.68 04/20/2025 3:21 PM EST Louise Dickson * BMI (Calculated) Answer Date of Assessment Author 28.42 04/20/2025 3:21 PM EST Harrisesa * BP Location Answer Date of Assessment Author Left arm 04/20/2025 3:39 PM Louise Swenson * Weight in (lb) to have BMI = 25 Answer Date of Assessment Author 129.1 04/20/2025 3:21 PM EST Harrisesa * Pain Score Answer Date of Assessment Author 5 04/20/2025 3:23 PM EST Louise Dickson * Patient Position Answer Date of Assessment Author Sitting 04/20/2025 3:39 PM Louise Swenson documented as of this encounter Mental Status * BP Answer Entry Date Author 136/77 04/20/2025 3:39 PM EST Kash Dicksnoa * Temp Answer Entry Date Author 97.9 04/20/2025 3:21 PM EST Kash Dicksona * Temp src Answer Entry Date Author Oral 04/20/2025 3:21 PM EST Louise Dickson * Pulse Answer Entry Date Author 78 04/20/2025 3:21 PM EST Louise Dickson * SpO2 Answer Entry Date Author 94 04/20/2025 3:21 PM EST Kash Dicksona * Height Answer Entry Date Author 60.315 04/20/2025 3:21 PM EST Louise Dickson * Weight Answer Entry Date Author 2352.75 04/20/2025 3:21 PM EST Kash Dicksona * BMI (Calculated) Answer Entry Date Author 28.5 04/20/2025 3:21 PM EST Kash Dicksona * Percent Excess Weight Loss Answer Entry Date Author 0 04/20/2025 3:21 PM EST Kash Dicksona * Total Weight Change Percent Answer Entry Date Author 2222 04/20/2025 3:21 PM EST Louise Dickson * Weight Change Since Preop Answer Entry Date Author 66.69 04/20/2025 3:21 PM EST Louise Dickson * Initial Excess Weight Answer Entry Date Author -46.07 04/20/2025 3:21 PM EST Kash Dicksona * IBW in lbs (Bariatric) Answer Entry Date Author 101.58 04/20/2025 3:21 PM EST Louise Dickson * Weight Change Since Last Visit Answer Entry Date Author 66.69 04/20/2025 3:21 PM EST Louise Dickson * IBW in kg (Bariatric) Answer Entry Date Author 46.07 04/20/2025 3:21 PM EST Louise Dickson * Percent of IBW Answer Entry Date Author 5,106.9 04/20/2025 3:21 PM EST Louise Dickson * EBW (kg) Answer Entry Date Author 2,351.44 04/20/2025 3:21 PM EST Kash Dicksona * EBW (lbs) Answer Entry Date Author 2,346.4 04/20/2025 3:21 PM Louise Swenson * Weight Change 24 hrs Answer Entry Date Author 1.7 04/20/2025 3:21 PM EST Louise Dickson * Depression Screening Question Answer Entry Date Author Will the patient answer the depression risk questions? No 04/20/2025 3:37 PM EST Kash Dicksona * BSA (Calculated - sq m) Answer Entry Date Author 1.68 04/20/2025 3:21 PM EST Kash Dicksona * BMI (Calculated) Answer Entry Date Author 28.42 04/20/2025 3:21 PM EST Kash Dicksona * BP Location Answer Entry Date Author Left arm 04/20/2025 3:39 PM EST Kash Dicksona * IBW/kg (Calculated) Male Answer Entry Date Author 50.72 04/20/2025 3:21 PM EST Kash Dicksona * IBW/kg (Calculated) Female Answer Entry Date Author 46.22 04/20/2025 3:21 PM EST Louise Dickson * IBW/kg (Calculated) Answer Entry Date Author 46.22 04/20/2025 3:21 PM EST Kash Dicksona * Restart Pain Assessment Timer Answer Entry Date Author Yes 04/20/2025 3:23 PM EST Louise Dickson * Weight in (lb) to have BMI = 25 Answer Entry Date Author 129.1 04/20/2025 3:21 PM EST Louise Dickson * BMI (Calculated) Answer Entry Date Author 28.5 04/20/2025 3:21 PM Louise Swenson * Percent Excess Weight Loss Answer Entry Date Author 0 04/20/2025 3:21 PM EST Kash Dicksona * Weight Change Since Preop Answer Entry Date Author 66.7 04/20/2025 3:21 PM EST Louies Dickson * Initial Excess Weight Answer Entry Date Author -46.07 04/20/2025 3:21 PM EST Kash Dicksona * IBW in kg (Bariatric) Answer Entry Date Author 46.07 04/20/2025 3:21 PM EST Kash Dicksona * IBW in lb (Bariatric) Answer Entry Date Author 101.58 04/20/2025 3:21 PM EST Kash Dicksona * Weight Change Since Last Visit Answer Entry Date Author 66.7 04/20/2025 3:21 PM EST Kash Dicksona * Percent of IBW Answer Entry Date Author 144.76 04/20/2025 3:21 PM EST Kash Dicksona * EBW (kg) Answer Entry Date Author 20.62 04/20/2025 3:21 PM EST Louise Dickson * EBW (lb) Answer Entry Date Author 45.47 04/20/2025 3:21 PM EST Kash Dicksona * Difference in Weight Since Last Visit Answer Entry Date Author 1.7 04/20/2025 3:21 PM EST Louise Dickson * Temp (in Celsius) for IROQUOIS IV Answer Entry Date Author 36.6 04/20/2025 3:21 PM EST Kash Dicksona * IBW/kg (Calculated) Answer Entry Date Author 46.22 04/20/2025 3:21 PM EST Kash Dicksona * Adult Low Range Vt 6mL/kg Answer Entry Date Author 277.32 04/20/2025 3:21 PM EST aKsh Dicksona * Adult Moderate Range Vt 8mL/kg Answer Entry Date Author 369.76 04/20/2025 3:21 PM EST Kash Dicksona * Adult High Range Vt 10mL/kg Answer Entry Date Author 462.2 04/20/2025 3:21 PM EST Louise Dickson * Pain Score Answer Entry Date Author 5 04/20/2025 3:23 PM EST Kash Dicksona * BP Cuff Size Answer Entry Date Author Large adult 04/20/2025 3:21 PM EST Kash Dicksona * Patient Position Answer Entry Date Author Sitting 04/20/2025 3:39 PM EST Louise Dickson * Pain Screening Answer Entry Date Author 0-10 04/20/2025 3:23 PM EST Kash Dicskona documented in this encounter Miscellaneous Notes * Progress Notes - Teri Jose PA - 04/20/2025 3:20 PM EST Subjective Patient ID: Manju Bird is a 70 y.o. female Chief Complaint Patient presents with Follow-up osteoporosis HPI Manju Bird is a 70 y.o. female who is referred by Dr. Nicki Feng MD for evaluation and management of osteoporosis. Other PMHx is breast cancer 2019 (treated with chemo, radiation, exemestane), GERD, HTN, Meniere's disease. Osteoporosis known since around 2014. Last visit 03/2024 Past treatment for osteoporosis - denosumab (PROLiA) Received one infusion in 2019 or 2019, but didnot get any more as she was concerned about side effects. Fracture history: Remote history of broken finger and toe. Bone disease history: Height loss Has lost at least one inch Kyphosis/scoliosis Scoliosis Ambulation Ambulates independently Independent Falls No Balance Yes, history of balance issues 2/2 Meniere's Pain Mainly in the middle of her back, some pain in lower back (right side) and right leg Dental history:Teeth cracking or chipping, no plans for invasive dental work Age at menopause: 54 Number of pregnancies: 2 Age at last : 23 Did not breast feed PMH: - History of breast cancer. Treated with lumpectomy, chemo, and radiation. Now on aromatase inhibitor. - Concerned about possible history of thyroid disease - Endorses mild hearing loss in right ear - HTN - Meniere's - GERD No hx renal stones, dental issues/scheduled dental procedures No thyroid/parathyroid/kidney/liver disease; No RA/organ transplant/GI disease (celiac, IBD, bariatric surgery, short gut, ileostomy)/HIV, meds/prolonged immobility No premature dental loss No ovarian ca No metabolic - hypercalcemia, hypophos, acidosis, hypoNa, vit d def, malnutrition, elevated ALP, Medications: PPIs, aromatase inhibitor PSH: No surgical history of bariatric surgery, joint surgeries/joint replacements, spine fusion, kyphoplasty/vertebroplasty - Has had arthroscopy of right elbow 2/2 arthritis Diet - Not eating much dairy, Exercise - Walking maybe once a week Vit D supplementation - 1000 IU every day Calcium supplementation -Ca + D, + Zn, dose unknown Weight change - Not significantly changed Tobacco - occasional cigarette when she was younger EtOH - One drink with dinner on occasion Recreational drugs - none Family History: Parental osteoporosis , Parental fracture, Breast cancer in mother and grandmother Rib fx 02/2024, bending over in deep freezer, fell into freezer, had right rib fx. Pt completed her full work up and returned in 03/2022 to review results. Discussed Prolia or other treatment at that visit again at that visit but pt declined treatment at that visit due to concerns over side effects and returned 03/2023 and 03/2024 for follow up. Held on treatment at those visits due to pts concerns over side effects despite. Pt returns today for follow up. Off AI since approx 03/2024. No fractures in the past year Taking Ca/Mg every day Taking Vit D 1000 Iu every day Active at home with grandchildren. Needs dental work, no current dental insurance. Constitutional: Negative. No fever, fatigue, weight loss. Eyes: Negative. No vision changes. Cardiovascular: HTN Respiratory: Negative. No shortness of breath at rest, cough, hemoptysis. Gastrointestinal: GERD Musculoskeletal: left leg numbness, left heel pain, back pain, hip pain Heme: breast cancer Physical Exam: Constitutional: No acute distress. Well-developed and nourished. Body mass index is 28.42 kg/m??. Pulmonary: Normal effort of breathing; Musculoskeletal: Normal range of motion. Psychiatric: Orientated to person, place, and time: Normal Mood and affect Objective BMD 04/20/25 Lunar T score: L spine -2.8, left femur neck -3.0, right femur neck -3.2, total left hip -2.1, total right hip -2.9. Values are stable in L spine, declined in left hip, stable in right femur neck and improved in total right hip compared to 2023 DXA. BMD Date 04/14/24 Lunar T scores: LS: -2.9, LFN: -2.6 LTH: -1.9, RFN: -3.1 RTH: -2.6. values are stable in L spine, right hip, improved in left hip compared to 2022 DXA. Labs: No visits with results within 7 Day(s) from this visit. Latest known visit with results is: Appointment on 04/09/2025 Component Date Value Ref Range Status Vitamin D 25 Hydroxy 04/09/2025 47.5 20.0 - 80.0 ng/mL Final Glucose, Plasma 04/09/2025 88 74 - 99 mg/dL Final BUN, Plasma 04/09/2025 10 8 - 23 mg/dL Final Creatinine, Plasma 04/09/2025 0.67 0.60 - 1.10 mg/dL Final BUN/Creatinine Ratio 04/09/2025 15 Final Sodium, Plasma 04/09/2025 141 136 - 145 mmol/L Final Potassium, Plasma 04/09/2025 4.7 3.6 - 4.9 mmol/L Final Chloride, Plasma 04/09/2025 106 97 - 107 mmol/L Final CO2, Plasma 04/09/2025 26 22 - 29 mmol/L Final Anion Gap 04/09/2025 9 6 - 16 mmol/L Final Total Calcium, Plasma 04/09/2025 9.5 8.9 - 10.2 mg/dL Final Phosphorus, Plasma 04/09/2025 3.5 2.5 - 4.5 mg/dL Final Albumin, Plasma 04/09/2025 4.4 3.5 - 5.2 g/dL Final eGFRcr 04/09/2025 94.7 mL/min/1.73m*2 Final C Telopeptide Beta Cross Linked Se* 04/09/2025 759 pg/mL Final Bone Specific Alkaline Phosphatase 04/09/2025 21.2 ug/L Final Assessment/Plan Problem List Items Addressed This Visit Primary malignant neoplasm of breast Overview Malignant neoplasm of central portion of right female breast Age-related osteoporosis without current pathological fracture - Primary Relevant Orders Follow Up Bone Mineral Metabolism Dexa Bone Density Bone Specific Alkaline Phosphatase C-Telopeptide Renal Function Panel, Plasma Vitamin D 25 Hydroxy Manju Bird is a 70 y.o. female who is referred by Dr. Nicki Feng MD for evaluation and management of osteoporosis. Other PMHx is breast cancer 2019 treated with chemo, radiation, exemestane, GERD, HTN, Meniere's disease. 1. Osteoporosis -BMD 04/20/25 Lunar T score: L spine -2.8, left femur neck -3.0, right femur neck -3.2, total left hip -2.1, total right hip -2.9. Values are stable in L spine, declined in left hip, stable in right femur neck and improved in total right hip compared to 2023 DXA. -risk factors: age, postmenopausal status, breast cancer with radiation and high risk med use (exemestane), limited activity. -pt completed full work up, no secondary cause for bone loss noted on work up. -discussed with pt that she has osteoporosis on DXA, bone markers remain high, antiresorptive treatment is best choice and is recommended due to low T scores in femur necks. -discussed prolia with pt again today and gave her med info to review at home. She would need to see dentist prior to starting any bone treatment -pt has terrible fear of side effects of bone meds -discussed Prolia or Reclast with pt, including benefits and side effects. Would not use oral due to GERD. -pt was very hesitant about taking treatment, she has had one dose of Prolia in the past, did well but had pain post injection -she would like to hold off on treatment again for one more year but will consider treatment and call me if she decides to start Prolia. -She will continue Ca/D one per day and Vit D 1000 IU every day. -advised weight bearing exercise, use good fall precautions. 2. Breast cancer -treated with chemo, radiation, exemestane, -not a candidate for anabolic therapy -now off of AI per pt 3. HTN -BP in clinic 136/77 -follows with PCP -home readings better per pt 4.hip pain, back pain -ordered PT for pt last visit Hold on treatment per pt preference -she will RTC 12 months with repeat labs and BMD Call if she decides on treatment Pt agreed with plan and can call with questions. Total time of encounter: 27 minutes. This time includes face to face with patient, counseling and discussion, lab/result interpretation, coordination of follow-up care. Documents reviewed: previous note, dxa report Labs reviewed: rfp, bone markers, vit d, Additional Historian: No Social Determinants impacting Health: none identified [facility] Note to patient: The 21st Century Cures Act makes medical notes like these available to patients inthe interest of transparency. However, be advised this is a medical document. It is intended as peer to peer communication. It is written in medical language and may contain abbreviations or verbiagethat are unfamiliar. It may appear blunt or direct. Medical documents are intended to carry relevant information, facts as evident, and the clinical opinion of the practitioner. documented in this encounter Plan of Treatment Upcoming Encounters Date Type Department Care Team (Late st Contact Info) Description 10/26/2025 1:00 PM EDT Appointment [facility] [address] [place] [address] 10/26/2025 2:30 PM EDT Office Visit [facility] [address] [facility] [place] [address] Michaela Lloyd, [employer] [address] [facility] [address] [place] [address] 04/26/2026 2:40 PM EST Appointment [facility] [address], [address] [place] [address] 04/26/2026 3:00 PM EST Office Visit [facility] [address], [address] [place] [address] Teri Jose PA [address] [place] [address] Scheduled Orders Name Type Priority Associated Diagnoses Orde r Schedule Dexa Bone Density Imaging Routine Age-related osteoporosis without current pathological fracture 1 Occurrences starting 04/20/2025 until 10/22/2026 Bone Specific Alkaline Phosphatase Lab Routine Age-related osteoporosis without current pathological fracture Expected: 04/19/2026 (Approximate), Expires: 10/22/2026 C-Telopeptide Lab Routine Age-related osteoporosis without current pathological fracture Expected: 04/19/2026 (Approximate), Expires: 10/22/2026 Renal Function Panel, Plasma Lab Routine Age-related osteoporosis without current pathological fracture Expected: 04/19/2026 (Approximate), Expires: 10/22/2026 Vitamin D 25 Hydroxy Lab Routine Age-related osteoporosis without current pathological fracture Expected: 04/19/2026 (Approximate), Expires: 10/22/2026 Scheduled Referrals Name Type Priority Associated Diagnoses Orde r Schedule Follow Up Bone Mineral Metabolism Outpatient Referral Routine Age-related osteoporosis without current pathological fracture Expected: 04/20/2026, Expires: 05/20/2026 documented as of this encounter Visit Diagnoses Diagnosis Age-related osteoporosis without current pathological fracture- Primary Primary malignant neoplasm of breast, unspecified laterality documented in this encounter Additional Health Concerns Assessment Noted Time PHQ-9 Depression Total Score: 0 10/16/19 25 4:14 PM EDT A fall risk assessment has been complete d for the patient 04/20/2025 3:37 PM EST A Body Mass Index follow-up plan has been documented for the patient 04/20/2025 4:04 PM EST documented as of this encounter Care Teams Academic Support Director Relationship Specialty Start Date End Date Nicki Thomas MD [address] [place] [address] PCP - General 10/08/20 Reji Gonsales MD [address] [address] Consulting Physician Radiation Oncology 08/02/21 documented as of this encounter
[2025-05-25 11:28] VITALS: BP 168/89; PULSE 78; RESP 16; TEMP 36.7; O2SAT 97; BMI 27.3
--- NOTE | 2025-05-25 11:31 | XR_ITS ---
FINAL REPORT CLINICAL HISTORY: short of breath COMPARISON: 05/02/2024 FINDINGS: A portable view of the chest was obtained. Cardiac and mediastinal silhouettes are within normal limits. The lungs are clear. There is no pleural effusion or pneumothorax. Calcified granulomas are present. IMPRESSION: No acute process on this portable exam. Reviewed, Interpreted and Dictated by Bhargavi Cross MD Transcribed by Shyla Saxena Authenticated and [facility]
--- OUTSIDE RECORDS SUMMARY | 2025-05-25 11:31 | XMS_ITS | Encounter Summary ---
Author Organization Healthcare Address [address] [id number] Care Team Providers Care Bank Clerk Name Role Phone Nicki Thomas MD Primary Care Provider [phone] Reji Gonsales MD Unavailable [phone] Reason for Visit * Reason Onset Date Comments Med Refill 04/21/2025 Encounter Details Date Type Department Care Team (Late st Contact Info) Description 04/21/2025 Refill [facility] [address] [place] [address] Nicki Thomas MD [address] [place] [address] Acute bronchitis due to other specified organisms Social History Tobacco Use Types Packs/Day Years [...] week 12/07/2023 How often do you attend [facility] or jew services? Never 12/07/2023 Do you belong to any clubs o r organizations such as yarsani groups, unions, fraternal or athletic groups, or [...] declined 01/02/2025 How often do you attend yarsani or jew serv ices? Patient declined 01/02/2025 Do you belong to any clubs o r organizations such as yarsani groups, unions, fraternal or athletic groups, or [...] more drinks on one occasion? Never 01/14/2025 [facility] - Occupational Stress Questionnaire Answer Date [...] were you homeless or living in a assisted (including now)? No 01/02/2025 Safety and Environment [...] encounter Miscellaneous Notes * Telephone Encounter - Estefani Acuna PharmD - 04/21/2025 2:05 PM EST 1 medication(s) has been approved per protocol. documented in this encounter Plan of Treatment Upcoming Encounters Date Type Department Care Team (Late st Contact Info) Description 10/26/2025 1:00 PM EDT Appointment [facility] Breast Care Center Comprehensive [facility] [address] [facility] [address] [place] [phone] 10/26/2025 2:30 PM EDT Office Visit [facility] Breast Care Center [address] [facility], 2nd [place] [address] Michaela Lloyd, BATTERY CONTAINER TESTER ALUMINUM [address] [facility] [address] [facility] [address] [place] [address] 04/26/2026 2:40 PM EST Appointment [facility] Mineral Metabolism [address] [facility], [address] [place] [address] 04/26/2026 3:00 PM EST Office Visit [facility] & Mineral Metabolism [address] [facility], [address] [place] [address] Teri Jose, GREY [address] [facility] [address] [place] [address] documented as of this encounter Visit Diagnoses Diagnosis Acute bronchitis due to other specified organisms documented in this encounter Additional Health Concerns Assessment Noted Time PHQ-9 Depression Total Score: 0 10/16/19 25 4:14 PM EDT A fall risk assessment has been complete d for the patient 04/20/2025 3:37 PM EST A Body Mass Index follow-up plan has been documented for the patient 04/20/2025 4:04 PM EST documented as of this encounter Care Teams Bank Clerk Relationship Specialty Start Date End Date Nicki Thomas MD [address] [place] [address] PCP - General 10/08/20 Reji Gonsales MD [address] [facility] [address] [place] [address] Consulting Physician Radiation Oncology 08/02/21 documented as of this encounter
--- OUTSIDE RECORDS SUMMARY | 2025-05-25 11:31 | XMS_ITS | Encounter Summary ---
Author Organization Healthcare Address [address] [place] [address] Care Team Providers Care Operations Executive Name Role Phone Nicki Thomas MD Primary Care Provider [phone] Reji Gonsales MD Unavailable [phone] Encounter Details Date Type Department Care Team (Latest Contact Info) Description 04/09/2025 Travel Social History Tobacco Use Types Packs/Day [...] often do you attend chur ch or confucianist services? Never 12/07/2023 Do you belong to any clubs o r organizations such as episcopalian groups, unions, fraternal or athletic groups, or [...] declined 01/02/2025 How often do you attend episcopalian or confucianist serv ices? Patient declined 01/02/2025 Do you belong to any clubs o r organizations such as episcopalian groups, unions, fraternal or athletic groups, or [...] you are drinking? Patient does not drink 5 Q3: How often do you have si x or more drinks on one occasion? Never 01/14/2025 [place] [employer] [facility] - Occupational Stress [...] any time in the past 12 m [facility], were you homeless or living in [...] the past 12 months has th e [employer], gas, oil, or water [employer] threatened to shut off services in your home? No 01/02/2025 PHQ-2A Answer Date Recorded Patient Health Questionnaire-2 Score 0 05/04/2023 Comments No Sex and Gender Information Value Date Recorded Sex Assigned at Not on file Legal Sex Female 6:13 PM EDT Gender Identity Not on file Sexual Orientation Not on file documented as of this encounter Functional Status * Communicable Disease Screening Question Answer Date of Assessment Author Have you been in contact wit h someone who was sick? No / Unsure 04/09/2025 10:39 AM Claire Malik Do you have any of the follo wing new or worsening symptoms? None of these 04/09/2025 10:39 AM Melinda Malik * Travel Screening Question Answer Date of Assessment Author Have you traveled internatio y[place] or domestically in the last month? No 04/09/2025 10:39 AM Claire Malik documented as of this encounter Mental Status * Communicable Disease Screening Question Answer Entry Date Author Have you been in contact wit h someone who was sick? No / Unsure 04/09/2025 10:39 AM Claire Malik Do you have any of the follo wing new or worsening symptoms? None of these 04/09/2025 10:39 AM Melinda Malik * Travel Screening Question Answer Entry Date Author Have you traveled internatio yancy or domestically in the last month? No 04/09/2025 10:39 AM Claire Malik documented in this encounter Plan of Treatment Upcoming Encounters Date Type Department Care Team ([facility] st Contact Info) Description 10/26/2025 1:00 PM EDT Appointment [facility] [address] [place] [address] [address] [place] [address] 10/26/2025 2:30 PM EDT Office Visit [facility] Breast Care Center [address] [facility], 2nd [place] [address] Michaela Lloyd, SENIOR RESEARCH PROJECT MANAGER [address] [facility] [address]y [facility] [address] [place] [address] 04/26/2026 2:40 PM EST Appointment [facility] [address], [address] [place] [address] 04/26/2026 3:00 PM EST Office Visit [facility] [address] [facility], [address] [place] [address] Teri Jose PA [address] [facility] [address] [place] [address] documented as of this encounter Visit Diagnoses Not on filedocumented in this encounter Additional Health Concerns Assessment Noted Time PHQ-9 Depression Total Score: 0 10/16/19 25 4:14 PM EDT A fall risk assessment has been complete d for the patient 01/30/2025 12:48 PM EDT A Body Mass Index follow-up plan has been documented for the patient 01/14/2025 4:49 PM EDT documented as of this encounter Care Teams Operations Executive Relationship Specialty Start Date End Date Nicki Thomas MD [address] [place] [phone] PCP - General 10/08/20 Reji Gonsales MD [address] [facility] [address] [place] [address] Consulting Physician Radiation Oncology 08/02/21 documented as of this encounter
--- OUTSIDE RECORDS SUMMARY | 2025-05-25 11:31 | XMS_ITS | Encounter Summary ---
Author Organization Healthcare Address [address] [place] [address] Care Team Providers Care Prototype Carpenter Name Role Phone Nicki Thomas MD Primary Care Provider [phone] eRji Gonsales MD Unavailable [phone] Petty Boyce LPN Unavailable Unavailabl e Encounter Details Date Type Department Care Team (Late st Contact Info) Description 01/24/2024 Outside Procedure External Location [address] [place] [address] Nicki Thomas MD [address] [place] [address] Social History Tobacco Use Types Packs/Day [...] How often do you attend chur or lutheran services? Never 12/07/2023 Do you belong to [...] Recorded Patient Health Questionnaire-2 Score 0 01/24/2024 [facility] - Occupational Stress Questionnaire Answer [...] in a intermediate (including now)? No 12/07/2023 Safety and Environment [...] Breast Care Center [facility] [address] [place] [address] 10/26/2025 2:30 PM EDT Office Visit [facility] [address] [facility], 2nd [place] [address] Michaela Lloyd, CHEMISTRY INSTRUCTOR [address] [facility] [address] [place] [phone] 04/26/2026 2:40 PM EST Appointment [facility] Mineral Metabolism [address], [address] [place] [address] 04/26/2026 3:00 PM EST [facility] Visit [facility] [address], [address] [place] [address] Teri Jose, PA [address] [place] [address] documented as of this encounter Procedures Procedure Name Priority Date/Time Associated Diagnosis Comments XR CERVICAL SPINE COMPLETE 4 TO 5 VIEWS 01/24/2024 4:15 PM EDT documented in this encounter Results * XR Cervical Spine Complete 4 To 5 Views (01/24/2024 4:15 PM EDT) Anatomical Region Laterality Modality Spine, C-spine Digital Radiogra phy 01/24/2024 4:15 PM EDT Narrative 01/27/2024 9:38 [place] [address] Name: CHIQUITA KURTZ Exam Date: 01/24/2024 : 1955 Age 68 years Gender: F Physician: NICKI PACE Facility: [facility] Facility HSV: Outpatient Exam: CERVICAL SPINE [...] signed by:Balta Monteiro MD01/27/2024 09:34 AM EDT RP Dictated By: Balta Monteiro Transcribed By: Transcribed On: 01/24/2024 4:59 PM Electronically signed by: Balta Monteiro 01/24/2024 Thank you for referring CHIQUITA KURTZ to [facility]. Legally authenticated by AMANDO SANTIAGO 2024-01-24 16:59:00 Procedure Note Provider, Fany [place] - 01/27/2024 [place] [address] Name: CHIQUITA KURTZ Exam Date: 01/24/2024 : 1955 Age 68 years Gender: F Physician: NICKI PACE Facility: [facility] Facility HSV: Outpatient Exam: CERVICAL SPINE [...] signed by:Balta Monteiro MD01/27/2024 09:34 AM EDT RP Dictated By: Balta Monteiro Transcribed By: Transcribed On: 01/24/2024 4:59 PM Electronically signed by: Balta Monteiro 01/24/2024 Thank you for referring CHIQUITA KURTZ to [facility]. Legally authenticated by AMANDO SANTIAGO 2024-01-24 [...] documented as of this encounter Care Teams Prototype Carpenter Relationship Specialty Start Date End Date Nicki Thomas MD [address] [place] [phone] PCP - General 10/08/20 Reji Gonsales MD [address] [phone] Consulting Physician Radiation Oncology 08/02/21 Petty Boyce LPN [employer] [place] [address] None Licensed Practical Nurse 01/23/25 01/28/25 documented as of this encounter
--- OUTSIDE RECORDS SUMMARY | 2025-05-25 11:31 | XMS_ITS | Encounter Summary ---
Author Organization Healthcare Address [address] [place] [address] Care Team Providers Care Shactor Helper Name Role Phone Nicki Thomas MD Primary Care Provider [phone] Reji Gonsales MD Unavailable [phone] Encounter Details Date Type Department Care Team (Latest Contact Info) Description 04/20/2025 Travel Social History Tobacco Use Types Packs/Day [...] often do you attend chur ch or uatsdin services? Never 12/07/2023 Do you belong to any clubs o r organizations such as restorationist groups, unions, fraternal or athletic groups, or [...] declined 01/02/2025 How often do you attend restorationist or uatsdin serv ices? Patient declined 01/02/2025 Do you belong to any clubs o r organizations such as restorationist groups, unions, fraternal or athletic groups, or [...] more drinks on one occasion? Never 01/14/2025 [place] [facility] - Occupational Stress [...] time in the past 12 m [facility], were you homeless or living in [...] the past 12 months has th e [employer], gas, oil, or water [employer] threatened to shut off services in your [...] someone who was sick? No / Unsure 04/20/2025 2:43 PM EST David, Rebecc a H Do you have any of the following new or worsening symptoms? None of these 04/20/2025 2:43 PM EST David, Elissa H * Travel Screening Question Answer Date of Assessment Author Have you traveled internatio [place] or domestically in the last month? No 04/20/2025 2:43 PM EST Brianna ll, Elissa H documented as of this encounter Mental Status * Communicable Disease Screening Question Answer Entry Date Author Have you been in contact wit h someone who was sick? No / Unsure 04/20/2025 2:43 PM EST David, Rebecc a H Do you have any of the following new or worsening symptoms? None of these 04/20/2025 2:43 PM EST David, Elissa H * Travel Screening Question Answer Entry Date Author Have you traveled internatio y[place] or domestically in the last month? No 04/20/2025 2:43 PM EST Brianna ll, Elissa H documented in this encounter Plan of Treatment Upcoming Encounters Date Type Department Care Team (Late st Contact Info) Description 10/26/2025 1:00 PM EDT Appointment [facility] [place] [address] [address] [facility] [address] [place] [address] 10/26/2025 2:30 PM EDT Office Visit [facility] [address] [facility], 2nd [place] [address] Michaela Lloyd, OPEN HEARTH WORKER 800 [facility] [address] [address] 04/26/2026 2:40 PM EST Appointment [facility] [address] [facility], [address] [place] [address] 04/26/2026 3:00 PM EST Office Visit [facility] Mineral Metabolism [address] [facility], [address] [place] [address] Teri Jose, PA [address] [facility] [address] [place] [address] documented as of this encounter [...] documented as of this encounter Care Teams Shactor Helper Relationship Specialty Start Date End Date Nicki Thomas MD [address] [place] [phone] PCP - General 10/08/20 Reji Gonsales MD 800 [facility] [address] [place] [phone] Consulting Physician Radiation Oncology 08/02/21 documented as of this encounter
--- OUTSIDE RECORDS SUMMARY | 2025-05-25 11:31 | XMS_ITS | Encounter Summary ---
Author Organization Healthcare Address [address] [place] [address] Care Team Providers Care Portable Canteen Operator Name Role Phone Nicki Thomas MD Primary Care Provider [phone] Reji Gonsales MD Unavailable Petty Boyce LPN Unavailable Unavailabl e Encounter Details Date Type Department Care Team (Late st Contact Info) Description 01/24/2024 Outside Procedure External Location [address] [place] [address] Nicki Thomas MD [address] [place] [address] Social History Tobacco Use Types Packs/Day [...] How often do you attend chur or baptist services? Never 12/07/2023 Do you belong to [...] Recorded Patient Health Questionnaire-2 Score 0 01/24/2024 [facility] - Occupational Stress Questionnaire Answer [...] in a alf (including now)? No 12/07/2023 Safety and Environment [...] Breast Care Center Comprehensive [facility] [address] [place] [address] 10/26/2025 2:30 PM EDT Office Visit [facility] [address] [facility], 2nd [place] [address] Michaela Lloyd, SHORT GOODS DRIER [address] [facility] [address] K[address] d[address] [place] [address] 04/26/2026 2:40 PM EST Appointment [facility] Bone & Mineral Metabolism [address] [place] [address] 04/26/2026 3:00 PM EST Office Visit [facility]eral [facility]abolism [address], [address] [place] [address] Teri Jose, PA [address] [place] [address] documented as of this encounter Procedures Procedure Name Priority Date/Time Associated Diagnosis Comments XR LUMBAR SPINE 2 OR 3 VIEWS 01/24/2024 4:15 PM EDT documented in this encounter Results * XR Lumbar Spine 2 or 3 Views (01/24/2024 4:15 PM EDT) Anatomical Region Laterality Modality Spine, L-spine Digital Radiogra phy 01/24/2024 4:15 PM EDT Narrative 01/27/2024 9:34 [place] [address] Name: CHIQUITA KURTZ Exam Date: 01/24/2024 : 1955 Age 68 years Gender: F Physician: NICKI PACE Facility: [facility] Facility HSV: Outpatient Exam: LUMBAR SPINE 2 [...] Thank you for referring CHIQUITA KURTZ to [facility]. Legally authenticated by AMANDO SANTIAGO 2024-01-24 16:59:00 Procedure Note Provider, Fany [place] - 01/27/2024 [place] [address] Name: CHIQUITA KURTZ Exam Date: 01/24/2024 : 1955 Age 68 years Gender: F Physician: NICKI PACE Facility: [facility] Facility HSV: Outpatient Exam: LUMBAR SPINE 2 [...] Thank you for referring CHIQUITA KURTZ to [facility]. Legally authenticated by AMANDO SANTIAGO [...] documented as of this encounter Care Teams Portable Canteen Operator Relationship Specialty Start Date End Date Nicki Thomas MD [address] [place] [phone] PCP - General 10/08/20 Reji Gonsales MD [address] [address] Consulting Physician Radiation Oncology 08/02/21 Petty Boyce LPN VALUE-[place] [place] [address] None Licensed Practical Nurse 01/23/25 01/28/25 documented as of this encounter
--- OUTSIDE RECORDS SUMMARY | 2025-05-25 11:31 | XMS_ITS | Clinical Summary ---
Author Organization [facility] Address [address] [place] [address] Care Team Providers Care Instructional Material Director Name Role Phone Nicki Thomas MD Primary Care Provider [phone] Reji Gonsales MD Unavailable [phone] Allergies Active Allergy Reactions Criticality Noted Date Comments Ezetimibe Other - please docum ent in the comment field Low 01/24/2024 Joint pains Statins Other - please docum ent in the comment field Low 01/04/2023 Makes her sick and heaviness in her legs, nightmares Medications ketoconazole (NIZOral) 2 % cream Apply 1 Application topically 2 (two) times a day. 4 Active ibuprofen 800 MG tabletIndication s:Chronic bilateral low back pain with left-sided sciatica Take 1 tablet (800 mg) by mouth 1 (one) time each day if needed for moderate pain. 90 tablet 3 5 Active amLODIPine (Norvasc) 2.5 MG tablet Take 1 tablet by mouth daily. 5 Active ketoconazole (NIZOral) 2 % shampoo Apply 1 Application topically 1 time per week. 5 Active hydroCHLOROthiaz issac 12.5 MG PO tabletIndication s:Essential (primary) hypertension Take 1 tablet by mouth daily. To replace amlodipine 2.5mg (if effective then will take off chart) 90 tablet 1 5 Active Additional Information Patient not taking.Reported on 04/20/2025 potassium chloride CR (K-Tab) 20 MEQ ER tabletIndication s:Muscle cramps Take 1 tablet by mouth daily. Do not crush, chew, or split. 90 tablet 1 5 Active diazePAM (Valium) 2 MG tabletIndication s:Meniere's disease of right ear Take 1 tablet by mouth 3 times a day as needed for sedation (vertigo). 90 tablet 1 5 Active cholecalciferol (Vitamin D3) 25 MCG (1000 UT) tabletIndication s:Routine general medical examination at health care facility Take 1 tablet by mouth daily. 90 tablet 2 5 Active omega-3 (Fish Oil) 1000 MG capsuleIndicatio ns:Routine general medical examination at health care facility Take 1 capsule by mouth daily. 90 capsule 2 5 Active Calcium & Magnesium Carbonates 975-232 MG tabletIndication s:Routine general medical examination at health care facility Take 1 tablet by mouth daily. 90 tablet 2 5 Active alpha tocopherol (Vitamin E) 400 units capsuleIndicatio ns:Routine general medical examination at health care facility Take 1 capsule by mouth daily. 90 capsule 2 5 Active valACYclovir (Valtrex) 1 g tabletIndication s:HSV infection Take 1 tablet by mouth 2 times a day. 30 tablet 3 5 Active Additional Information Patient taking differently:1,000 mg Oral 2 times daily,Pt taking as needed, Reported on 04/20/2025 cyclobenzaprine (Flexeril) 5 MG tabletIndication s:Acute back pain, unspecified back location, unspecified back pain laterality,Acute pain of right shoulder Take 1 tablet by mouth 2 times a day as needed for muscle spasms. 30 tablet 5 Active Calcium-Magnesiu m 500-250 MG tablet Take 1 tablet by mouth daily. 90 tablet 3 5 Active Additional Information Patient not taking.Reported on 04/20/2025 desloratadine (Clarinex) 5 MG tablet take 1 tablet by mouth once daily as needed for allergies 5 Active fluticasone (Flonase) 50 MCG/ACT nasal spray 1 spray. 4 Active albuterol 108 (90 Base) MCG/ACT inhalerIndicatio ns:Acute bronchitis due to other specified organisms Inhale 2 puffs every 6 hours as needed for wheezing. 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 Gastroesophageal reflux dise ase with esophagitis without hemorrhage 02/22/2021 Malignant neoplasm of overla pping sites of right breast in female, estrogen receptor positive 01/17/2021 Cancer Staging:Clinical stage from 07/26/2018:Stage IA(T1c, N0, M0) - Unsigned Magnesium deficiency 09/17/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 Diagnoses and all orders for this visit: Routine general medical examination at [facility] facility - cholecalciferol (Vitamin D3) 25 MCG (1000 UT) tablet; Take 1 tablet by mouth daily. - omega-3 (Fish Oil) 1000 MG capsule; Take 1 capsule by mouth daily. - Calcium & Magnesium Carbonates 975-232 MG tablet; Take 1 tablet by mouth daily. - alpha tocopherol (Vitamin E) 400 units capsule; Take 1 capsule by mouth daily. Essential (primary) hypertension - hydroCHLOROthiazide 12.5 MG PO tablet; Take 1 tablet by mouth daily. To replace amlodipine 2.5mg (if effective then will take off chart) Meniere's disease of right ear - diazePAM (Valium) 2 MG tablet; Take 1 tablet by mouth 3 times a day as needed for sedation (vertigo). HSV infection - valACYclovir (Valtrex) 1 g tablet; Take 1 tablet by mouth 2 times a day. Muscle cramps - potassium chloride CR (K-Tab) 20 MEQ ER tablet; Take 1 tablet by mouth daily. Do not crush, chew, or split. Acute back pain, unspecified back location, unspecified back pain laterality - cyclobenzaprine (Flexeril) 5 MG tablet; Take 1 tablet by mouth 2 times a day as needed for muscle spasms. Acute pain of right shoulder - cyclobenzaprine (Flexeril) 5 MG tablet; Take 1 tablet by mouth 2 times a day as needed for muscle spasms. Meniere disease 07/19/2018 Multilevel degenerative disc disease 04/11/2016 Neck pain 04/11/2016 Protrusion of cervical intervertebral disc 04/11 Spinal stenosis of cervical region 04/11/2016 Resolved Problems Problem Noted Date Diagnosed Date Resolved Date Sinusitis 09/09/2024 02/15/2025 Viral URI 05/08/2024 02/15/2025 Bilateral hip pain 04/14/2024 Shortness of breath 02/22/2021 02/16/20 Snoring 07/09/2019 02/15/2025 Encounters Date Type Department Care Team Description 04/21/2025 [facility] [address] [place] [address] Nicki Thomas MD Acute bronchitis due to other specified organisms 04/20/2025 3:20 PM EST Office Visit [facility] Mineral Metabolism [address] , [address] [place] [address] Teri Jose PA Age-related osteoporosis without current pathological fracture (Primary Dx); Primary malignant neoplasm of breast, unspecified laterality 04/20/2025 2:45 PM EST - 04/20/2025 11:59 PM EST Hospital Encounter [facility] [address] , [address] [place] [address] Age-related osteoporosis without current pathological fracture Discharge Disposition: Home or Self Care 04/20/2025 Travel 04/09/2025 Travel 03/30/2025 Travel 03/11/2025 [facility] [address] [place] [address] Nicki Thomas MD from Last 3 Months Immunizations Immunization Administration Dates Next Due Influenza, injectable, quadrivalent, preservativ e free 02/19/2020 Family History Medical History Relation Name Comments Diabetes Brother Elgin Heart disease Brother Elgin Autoimmune disease Daughter Edwige Alcohol abuse Father Trueman Asthma Father Trueman Depression Father Trueman Diabetes Father Trueman Diabetes type I Father Trueman Heart disease Father Trueman Arthritis Maternal Grandmother Manju Breast cancer Maternal Grandmother Manju Cancer Maternal Grandmother Manju Conversions - Other Maternal Grandmother Manju malignant neoplasm of female breast Breast cancer Mother Neha Cancer Mother Neha Conversions - Other Mother Neha malignan t neoplasm of female breast Asthma Sister 1 Maria Antonia sister Diabetes Sister 1 Maria Antonia sister Thyroid disease Sister 1 Maria Antonia sister Autoimmune disease Sister 2 Maria Antonia Diabetes Sister 3 Tyra Relation Name Status Comments Brother Elgin Alive Daughter Edwige Alive Father Trueman Alive Maternal Grandmother [place] Mother Neha Sister 1 Maria Antonia sister Alive Sister 2 Maria Antonia Alive Sister 3 Tyra Alive Social History Tobacco Use Types Packs/Day Years [...] often do you attend chur ch or rastafarian services? Never 12/07/2023 Do you belong to any clubs o r organizations such as adventist groups, unions, fraternal or athletic groups, or [...] declined 01/02/2025 How often do you attend adventist or rastafarian serv ices? Patient declined 01/02/2025 Do you belong to any clubs o r organizations such as adventist groups, unions, fraternal or athletic groups, or [...] more drinks on one occasion? Never 01/14/2025 [facility] - Occupational Stress Questionnaire Answer Date [...] any time in the past 12 m [facility], were you homeless or living in a retirement (including now)? No 01/02/2025 Safety and Environment [...] F) 04/20/2025 3:21 PM EST Respiratory Rate 18 01/14/2025 3:19 PM EDT Oxygen Saturation 94% 04/20/2025 3:2 1 PM EST Inhaled Oxygen Concentration - - Weight 66.7 kg (147 lb 0.8 oz) 04/20/20 3:21 PM EST with shoes Height 153.2 cm (5' 0.32 ) 04/20/2025 3 :21 PM EST with shoes Body Mass Index 28.42 04/20/2025 3:21 PM EST Plan of Treatment Upcoming Encounters Date Type Department Care Team ([facility] st Contact Info) Description 10/26/2025 1:00 PM EDT Appointment [facility] Breast Care Center [facility] [place] [address] [address] [facility] [address] [place] [address] 10/26/2025 2:30 PM EDT Office Visit [facility] Breast Care Center [address] [facility] [place] [address] Michaela Lloyd, SAMPLE DYE MIXER [address] [facility] [address] [place] [address] 04/26/2026 2:40 PM EST Appointment [facility] [address] [facility], [address] [place] [address] 04/26/2026 3:00 PM EST Office Visit [facility] [address] [facility], [address] [place] [address] Teri Jose, GREY [address] [place] [address] Health Maintenance Due Date Last Done Comments [facility]-Hepatitis C Screening 1955 CCM-BEGSB-28 Vaccine (#1) 1955 [facility]-DTaP,Tdap,and Td Vaccines (1 - Tdap) 1975 [facility]-Pneumococcal Vaccine: 50+ Years (1 of 2 - PCV) 1975 [facility]-Zoster Vaccines (1 of 2) 1975 CT Colonography 2001 Colonoscopy 2001 FIT 2001 FOBT 2001 Sigmoidoscopy 2001 [facility]-RSV Vaccine: 60+ Years or (1 - Risk 50-74 years 1-dose series) 2006 [facility]-Influenza Vaccine (#1) 2025 02/19/2020 [facility]- SDOH Screenings 07/05/2025 [facility]-Adult SDOH Screenings 07/05/2025 01/02/2025 [facility]-/Child/Adol SDOH Screenings 07/05/2025 01/02/2025 FIT-DNA 09/08/2025 09/08/2022, 03/0 07/2019, 07/24/2019 [facility]-Colorectal Cancer Screening 09/08/2025 [facility]-Depression Screening 10/17/2025 10/17/2024, 05/2 05/2024 [facility]-Medicare Annual Wellness (AWV) 01/30/2026 01/30/2025, 12/13/2023, 01/11/2022 [facility]-Bone Density Scan 04/20/2026 04/20/2025 , 04/14/2024, 04/10/2023, Additional history exists [facility]-Cervical Cancer Screening Discontinued [facility]-HPV/Cotest Discontinued 01/11/2022, 01/11/2022 [facility]-Pap Smear Discontinued 01/11/2022 [facility]-Diabetes: Hemoglobin A1C Discontinued 10/29/2023, 08/17/2022, 01/11/2022, Additional history exists [facility]-Obesity Intervention Completed 025, 01/30/2025, 01/14/2025, Additional history exists HPV Vaccines (No Doses Required) Completed [facility]-HIB Vaccines Aged Out No longer e [...] EST Age-related osteoporosis without current pathological fracture BONE SPECIFIC ALKALINE PHOSPHATASE Routine 04/09/2025 10:49 AM EST Age-related osteoporosis without current pathological fracture C-TELOPEPTIDE Routine 04/09/2025 10:49 AM EST Age-related osteoporosis without current pathological fracture RENAL FUNCTION PANEL, PLASMA Routine 04/09/2025 10:49 AM EST Age-related osteoporosis without current pathological fracture VITAMIN D 25 HYDROXY Routine 04/09/2025 10:49 AM EST Age-related osteoporosis without current pathological fracture HEMOGLOBIN A1C Routine 10/29/2023 9:52 AM EDT Routine general medical examination at a [facility] care facility LAB COLOGUARD COLON CANCER SCREEN Routine 09/08/2022 9:40 AM EDT Screen for colon cancer PAP TEST - CYTOLOGY Routine 01/11/2022 1 0:42 AM EDT Encounter for Pap smear of cervix with HPV DNA cotesting from Last 3 Months or Most Recently Relevant to Health Maintenance Results * Dexa Bone Density (04/20/2025 2:45 PM EST) Anatomical Region Laterality Modality L-spine Radio Fluoroscop y Narrative 04/21/2025 12:22 PM EST [facility] - [facility] [address] [place] [address] DXA Bone Densitometry Report: [Date of exam] BMD test performed using the [employer] DXA System (analysis version: 14.10) manufactured by [employer]. REFERRING PROVIDER: GREY Keith CLINICAL INFORMATION: PATIENT [...] change or response to treatment. Teri EDMONDS [facility] DXA PROCEDURES Final Resul t * Bone Specific Alkaline Phosphatase (04/09/2025 10:49 AM EST) Bone Specific Alkaline Phosphatase 21.2 ug/L 04/09/2025 5:01 PM EST [facility] Comment: BSAP (Ostase) Reference Values, Female, age 18 years and up: Premenopausal: 4.5 to 16.9 ug/L Postmenopausal: 7.0 to 22.4 ug/L Blood Venous blood specimen / Unknown Venipuncture / Unknown 04/09/2025 10:49 AM EST 04/09/2025 10:49 AM EST us Teri EDMONDS LAB REF LAB BLOOD AND FLUID OR D Final Result [facility] [address] [place] [address] * C-Telopeptide (04/09/2025 10:49 AM EST) C Telopeptide Beta Cross Linked Serum Result 759 pg/mL 04/11/2025 7:59 PM EST [employer]) Blood Venous blood specimen / Unknown Venipuncture / Unknown 04/09/2025 10:49 AM EST 04/09/2025 10:49 AM EST Narrative [facility] - 04/11/2025 7:59 PM EST Premenopausal Females: 136-689 pg/mL Postmenopausal Females: 177-1015 pg/mL REFERENCE INTERVAL: C-Telopeptide, [id number], Serum Access complete set of age- and/or gender-specific reference intervals for this test in the [facility] Test Directory ([employer]). Performed By: [facility] [address] [place] [address] Wax Machine Operator: Gustavo Bailey MD, PhD CLIA Number: [id number] us Teri EDMONDS LAB BLOOD ORDERABLES Final Res ult [facility] [address] [place] [address] * Vitamin D 25 Hydroxy (04/09/2025 10:49 AM EST) Vitamin D 25 Hydroxy 47.5 20.0 - 80.0 ng/mL 04/09/2025 4:53 PM EST [facility] Blood Venous blood specimen / Unknown Venipuncture / Unknown 04/09/2025 10:49 AM EST 04/09/2025 10:49 AM EST Narrative [facility] - 04/09/2025 4:53 PM EST Testing performed on [employer] Field Engineer, standardized against NIST SRM 2972. When testing samples from patients whose predominant form of vitamin D is vitamin D2, such as patients receiving vitamin D2 supplementation, results that are subtherapeutic should be confirmed with another method, such as LC-MS/MS, before being used for patient management. Vitamin D, 25-Hydroxy reference range, age 18 years and up: Deficiency: <12 ng/mL Insufficiency: 12 to 19 ng/mL Sufficiency: 20 to 80 ng/mL Possible toxicity: >100 ng/mL us Teri EDMONDS LAB BLOOD ORDERABLES Final Res ult [facility] [address] [place] [address] * Renal Function Panel, Plasma (04/09/2025 10:49 AM EST) Glucose, Plasma 88 74 - 99 mg/dL 04/09/2025 3:36 PM EST [facility] BUN, Plasma 10 8 - 23 mg/dL 04/09/2025 3:36 PM EST [facility] Creatinine, Plasma 0.67 0.60 - 1.10 mg/dL 04/09/2025 3:36 PM EST [facility] BUN/Creatinine Ratio 15 04/09/2025 3:36 PM EST [facility] Sodium, Plasma 141 136 - 145 mmol/L 04/09/2025 3:36 PM EST [facility] Potassium, Plasma 4.7 3.6 - 4.9 mmol/L 04/09/2025 3:36 PM EST [facility] Chloride, Plasma 106 97 - 107 mmol/L 04/09/2025 3:36 PM EST [facility] CO2, Plasma 26 22 - 29 mmol/L 04/09/2025 3:36 PM EST [facility] Anion Gap 9 6 - 16 mmol/L 04/09/2025 3:36 PM EST [facility] Total Calcium, Plasma 9.5 8.9 - 10.2 mg/dL 04/09/2025 3:36 PM EST [facility] Phosphorus, Plasma 3.5 2.5 - 4.5 mg/dL 04/09/2025 3:36 PM EST [facility] Albumin, Plasma 4.4 3.5 - 5.2 g/dL 04/09/2025 3:36 PM EST [facility] eGFRcr 94.7 mL/min/1.7 3m*2 04/09/2025 3:36 PM EST [facility] Comment:Reported eGFRcr in m L/min/1.73m2 is based the CKD-EPI 2020 equation that does not use a race coefficient. Blood Venous blood specimen / Unknown Venipuncture / Unknown 04/09/2025 10:49 AM EST 04/09/2025 10:49 AM EST us Teri EDMONDS LAB BLOOD ORDERABLES Final Res ult Performing Organization Address [facility] Co de Phone Number [facility] [address] [place] [address] * Hemoglobin A1c (10/29/2023 9:52 AM EDT) Hemoglobin A1c 5.4 <5.7 % 10/29/2023 1:20 PM EDT [facility] Blood Venous blood specimen / Unknown [...] Adults <6.0% Children and Adolescents <7.5% Source: [place] Diabetes Association. Standards of medical care in diabetes,2017. Diabetes Care.2017:40 (suppl 1):S1-S135. HbA1c assay performed by an ion-exchange chromatography method that is certified traceable to the DCCT. us Zenia Worthy SAMPLE DYE MIXER, DNP LAB BLOOD ORDERABLES Final Result Performing Organization Address [facility] Co de Phone Number [facility] [address] [place] [address] * Cologuard?? colon cancer screening (09/08/2022 9:40 AM EDT) Cologuard Negative Negative 09/16/2022 4:11 AM EDT [facility] (CLIA #:[id number]) Comment: NEGATIVE TEST RESULT. A negative Cologuard [...] (Abhishek Loya al, N Engl J Med 2014;370(14):2327-6133) The normal value (reference range) for this assay is negative. COLOGUARD RE-SCREENING RECOMMENDATION: Periodic colorectal cancer screening is an important part of preventive healthcare for asymptomatic individuals at average risk for colorectal cancer. Following a negative Cologuard result, the [place] Cancer Society and U.S. Multi-Society Task Force screening guidelines recommend a Cologuard re-screening interval of 3 years. References: [place] Cancer Society Guideline for Colorectal Cancer Screening: https://www.cancer.org/cancer/xvmye-prjtxo-dpxsbr/holtsodwe-ipohyznmw-erbhjmh/ac s-rec ommendations.html.; Adalberto CORONADO, Dannielle CARDOZA, Brett AndersonK, Colorectal Cancer Screening: Recommendations for Physicians and Patients from the U.S. Multi-Society Task Force on Colorectal Cancer Screening , Am J Gastroenterology 2017; 112:2749-6763. TEST DESCRIPTION: Composite algorithmic analysis of stool [...] Zepeda et al, N Engl J Med 2014;370(14):7702-2924.) Cologuard may produce a false negative or false positive result (no colorectal cancer or precancerous polyp present at colonoscopy follow up). A negative Cologuard test result does not guarantee the absence of CRC or advanced adenoma (pre-cancer). The current Cologuard screening interval is every 3 years. ([place] Cancer Society and U.S. Multi-Society Task Force). Cologuard performance data in a 10,000 patient pivotal study using colonoscopy as the reference method can be accessed at the following location: www.[employer]/results. Additional description of the Cologuard test process, warnings and precautions can be found at www.[employer]. Stool specimen (specimen) 09/08/2022 9:40 AM EDT 09/09/2022 3:47 PM EDT Nicki Thomas MD LAB MOLECULAR DIAGNOSTICS [place] Final Result [facility] (CLIA #:[id number]) [address] [place] [address], * Pap Test (01/11/2022 10:42 AM EDT) Case Report Cytology Case: [id number] Authorizing Provider: Marina Elizabeth APRN Collected: 01/11/2022 1042 [facility]ing [facility] Received: 01/11/2022 1042 Medicine First Screen: Leigh Khan Specimen: ThinPrep Pap Test, Liquid-Based Cervical/Vaginal, CERVICAL/VAGINAL 01/20/2022 1:06 PM EDT [facility] Interpretation NEGATIVE FOR INTRAEPITHELIAL LESION OR MALIGNANCY 01/20/2022 1:06 PM EDT [facility] at 1306 EDT Other Findings Atrophy and inflammation (Atrophic Vaginitis) 01/20/2022 1:06 PM EDT [facility] Specimen Adequacy Satisfactory for evaluation; transformation zone component cannot be definitely identified due to the presence of atrophy or other hormonal changes. Slide scanned and imaged by [employer] Imaging System with manual review of all selected [place]. 01/20/2022 1:06 PM EDT [facility] Cervical cytology is a screening [...] results is suggested (please call Microbiology at [phone] for results). 01/20/2022 1:06 PM EDT [facility] Menstrual Status Post-Menopausal 1:06 PM EDT [facility] Contraceptive History Not Applicable 01/20/2022 1:06 PM EDT [facility] Screening Type Routine Screen 2021 1:06 PM EDT [facility] High Risk? No 01/20/2022 1:06 PM EDT [facility] HPV Testing Requested? Request HPV Testing Regardless of Pap Test Findings 01/20/2022 1:06 PM EDT [facility] Previous Cancer History Yes 01/20/2022 1:06 PM EDT [facility] Comment:breast cancer Clinical Information Z12.4 - Encounter for Pap smear of cervix with HPV DNA cotesting [ICD-10-CM] 01/20/2022 1:06 PM EDT [facility] Last Menstrual Period 12/21/2014 01/20/2022 1:06 PM EDT [facility] Swab Vaginal and cervical cytologic material / Unknown Non-blood Collection / Unknown 01/11/2022 10:42 AM EDT 01/11/2022 10:42 AM EDT Marina Elizabeth APRN LAB CYTOLOGY ORDERABLES Final [facility] [address] [place] [address] from Last 3 Months or Most Recently Relevant to Health Maintenance Insurance MEDICARE Care Teams Instructional Material Director Relationship Specialty Start Date End Date Nicki Thomas MD [address] [place] [phone] PCP - General 10/08/20 Reji Gonsales MD [address] [id number] Consulting Physician Radiation Oncology 08/02/21
--- OUTSIDE RECORDS SUMMARY | 2025-05-25 11:31 | XMS_ITS | Encounter Summary ---
Author Organization Healthcare Address [address] [id number] Care Team Providers Care Shop Coordinator Name Role Phone Nicki Thomas MD Primary Care Provider [phone] Reji Gonsales MD Unavailable [phone] Andrey Cordon Unavailable Unavailable Cherise Hart SILVER LAP MACHINE TENDER Unavailable Unavailabl e Petty Boyce SILVER LAP MACHINE TENDER Unavailable Unavailabl e Reason for Visit * Reason Comments Med Refill Encounter Details Date Type Department Care Team (Late st Contact Info) Description 10/11/2022 Refill Family [facility] Community Medicine [address] [place] [address] Marina Elizabeth, FOOD CHECKERS AND CASHIERS SUPERVISOR [address] [place] [address] Sprain of temporomandibular joint, initial [...] [facility] Mahsa Khoury Building [address] [place] [address] 10/26/2025 2:30 PM EDT Office Visit [facility] [address] [facility], 2nd [place] [address] Michaela Lloyd, FOOD CHECKERS AND CASHIERS SUPERVISOR [address] [facility] Lizzette Khoury [address] [place] [address] 04/26/2026 2:40 PM EST Appointment [facility] [address] [facility], [address] [place] [address] 04/26/2026 3:00 PM EST Office Visit [facility] [address] [facility], [address] [place] [address] Teri Jose, PA [address] [facility] [address] [place] [address] documented as of this encounter Visit Diagnoses Diagnosis Sprain of temporomandibular joint, initial encounter documented in this encounter Additional Health Concerns Infection Onset Date Last Indicated Resolved Time Rickettsial fevers, tickborn e ([place] spotted fever, tickborne typhus fever) 12/26/2021 12/26/2021 11/30/2022 3:11 PM E DT Assessment Noted Time A fall risk assessment has been complete d for the patient 10/09/2022 2:05 PM EDT A Body Mass Index follow-up plan has been documented for the patient 08/17/2022 9:25 AM EDT documented as of this encounter Care Teams Shop Coordinator Relationship Specialty Start Date End Date Nicki Thomas MD [address] [place] [address] PCP - General 10/08/20 Reji Gonsales MD [address] [facility] [id number] [place] [address] Consulting Physician Radiation Oncology 08/02/21 Andrey Cordon [address] [place] [address] Community Health Worker 10/29/23 11/05/23 Cherise Hart LPN VALUE-BASED TRANSFORMATION PROGRAM None TCM Nurse 12/05/23 01/04/24 Petty Boyce LPN VALUE[place] [address] None Licensed Practical Nurse 01/23/25 01/28/25 documented as of this encounter
--- OUTSIDE RECORDS SUMMARY | 2025-05-25 11:31 | XMS_ITS | Encounter Summary ---
Author Organization Healthcare Address [address] [id number] Care Team Providers Care Box Office Agent Name Role Phone Nicki Thomas MD Primary Care Provider Reji Gonsales MD Unavailable [phone] Andrey Cordon Unavailable Unavailable Cherise Hart CUSTOMER CARE PROFESSIONAL Unavailable Unavailabl e Petty Boyce CUSTOMER CARE PROFESSIONAL Unavailable Unavailabl e Reason for Visit * Reason Comments Med Refill Encounter Details Date Type Department Care Team (Late st Contact Info) Description 07/05/2022 Refill Family and Community Medicine [address] [place] [address] Marina Elizabeth, AWNING CRAFTSPERSON [address] [place] [address] Sprain of temporomandibular joint, initial [...] [facility] Mahsa Khoury Building [address] [place] [address] 10/26/2025 2:30 PM EDT Office Visit [facility] [address] [facility], 2nd [place] [address] Michaela Lloyd, AWNING CRAFTSPERSON [address] [facility] [address]izz[address] [place] [address] 04/26/2026 2:40 PM EST Appointment [facility] [address] [facility], [address] [place] [address] 04/26/2026 3:00 PM EST Office Visit [facility] [address] [facility], [address] [place] [address] Teri Jsoe, PA [address] [facility] [address] [place] [address] documented as of this encounter Visit Diagnoses Diagnosis Sprain of temporomandibular joint, initial encounter documented in this encounter Additional Health Concerns Infection Onset Date Last Indicated Resolved Time Rickettsial fevers, 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 [address] Community Health Worker 10/29/23 11/05/23 Cherise Hart LPN VALUE-BASED TRANSFORMATION PROGRAM None TCM Nurse 12/05/23 01/04/24 Petty Boyce LPN VALUE[place] [address] None Licensed Practical Nurse 01/23/25 01/28/25 documented as of this encounter
--- OUTSIDE RECORDS SUMMARY | 2025-05-25 11:31 | XMS_ITS | Encounter Summary ---
Author Organization Healthcare Address [address] [place] [address] Care Team Providers Care Snapper On Name Role Phone Nicki Thomas MD Primary Care Provider [phone] Reji Gonsales MD Unavailable [phone] Petty Boyce LPN Unavailable Unavailabl e Encounter Details Date Type Department Care Team (Late st Contact Info) Description 01/24/2024 Outside Procedure External Location [address] [place] [address] Nicki Thomas MD [address] [place] [address] Social History Tobacco Use Types Packs/Day [...] How often do you attend chur or scientologist services? Never 12/07/2023 Do you belong to [...] Recorded Patient Health Questionnaire-2 Score 0 01/24/[address] [facility] - Occupational Stress Questionnaire Answer [...] [facility] [address] [place] [address] 10/26/2025 2:30 PM EDT Office Visit [facility] [address] [facility], 2nd [place] [address] Michaela Lloyd, TAILINGS DAM PUMPER [address] [facility] Lizzette Khoury [facility] [address] [place] [address] 04/26/2026 2:40 PM EST Appointment [facility] [address], [address] [place] [address] 04/26/2026 3:00 PM EST Office Visit [facility] [address], [address] [place] [address] Teri Jose, PA [address] [place] [address] documented as of this encounter Procedures Procedure Name Priority Date/Time Associated Diagnosis Comments XR THORACIC SPINE 2 VIEWS 01/24/2024 4:15 PM EDT documented in this encounter Results * XR Thoracic Spine 2 Views (01/24/2024 4:15 PM EDT) Anatomical Region Laterality Modality Spine, T-spine Digital Radiogra phy 01/24/2024 4:15 PM EDT Narrative 01/27/2024 9:36 [place] [address] Name: CHIQUITA KURTZ Exam Date: 01/24/2024 : 1955 Age 68 years Gender: F Physician: NICKI PACE Facility: [facility] Facility HSV: Outpatient Exam: THORACIC SPINE 2V [...] SANTIAGO 2024-01-24 16:59:00 Procedure Note Provider, Generic Patterson - 01/27/2024 [place] [address] Name: CHIQUITA KURTZ Exam Date: 01/24/2024 : 1955 Age 68 years Gender: F Physician: NICKI PACE Facility: [facility] Facility HSV: Outpatient Exam: THORACIC SPINE 2V [...] documented as of this encounter Care Teams Snapper On Relationship Specialty Start Date End Date Nicki Thomas MD [address] [place] [address] PCP - General 10/08/20 Reji Gonsales MD [id number] [place] [address] Consulting Physician Radiation Oncology 08/02/21 Petty Boyce LPN VALUE-BASED TRANSFORMATION [place] [address] None Licensed Practical Nurse 01/23/25 01/28/25 documented as of this encounter
--- OUTSIDE RECORDS SUMMARY | 2025-05-25 11:31 | XMS_ITS | Encounter Summary ---
Author Organization Healthcare Address [address] [place] [address] Care Team Providers Care Psychology Teacher Name Role Phone Nicki Thomas MD Primary Care Provider [phone] Reji Gonsales MD Unavailable [phone] Encounter Details Date Type Department Care Team (Latest Contact Info) Description 03/30/2025 Travel Social History Tobacco Use Types Packs/Day [...] often do you attend chur ch or adventist services? Never 12/07/2023 Do you belong to any clubs o r organizations such as muslim groups, unions, fraternal or athletic groups, or [...] declined 01/02/2025 How often do you attend muslim or adventist serv ices? Patient declined 01/02/2025 Do you belong to any clubs o r organizations such as muslim groups, unions, fraternal or athletic groups, or [...] more drinks on one occasion? Never 01/14/2025 [facility] - Occupational Stress [...] the past 12 months has th e [employer], gas, oil, or water [employer] threatened to shut off services in your home? No 01/02/2025 PHQ-2A Answer Date Recorded Patient Health Questionnaire-2 Score 0 05/04/2023 Comments No Sex and Gender Information Value Date Recorded Sex Assigned at Not on file Legal Sex Female 6:13 PM EDT Gender Identity Not on file Sexual Orientation Not on file documented as of this encounter Functional Status * Travel Screening Question Answer Date of Assessment Author Have you traveled internatio yancy or domestically in the last month? No 03/30/2025 3:47 PM EST Mycha rt, Generic documented as of this encounter Mental Status * Travel Screening Question Answer Entry Date Author Have you traveled internatio yancy or domestically in the last month? No 03/30/2025 3:47 PM EST Mycha rt, Generic documented in this encounter Plan of Treatment Upcoming Encounters Date Type Department Care Team ([facility] st Contact Info) Description 10/26/2025 1:00 PM EDT Appointment [facility] [address] [address] [address] [facility] [address] [place] [address] 10/26/2025 2:30 PM EDT Office Visit [facility] [place] [address] [facility], 2nd [place] [address] Michaela Lloyd, GOLD AND SILVER ASSAYER [address] [facility] [address] [place] [address] 04/26/2026 2:40 PM EST Appointment [facility] [address] [facility], [address] [place] [address] 04/26/2026 3:00 PM EST Office Visit [facility] [address] [facility], [address] [place] [address] Teri Jose PA [address] [facility] [address] [place] [address] documented as of this encounter [...] documented as of this encounter Care Teams Psychology Teacher Relationship Specialty Start Date End Date Nicki Thomas MD [address] [place] [address] PCP - General 10/08/20 Reji Gonsales MD [address] [address] Consulting Physician Radiation Oncology 08/02/21 documented as of this encounter
--- NOTE | 2025-05-25 11:47 | ECG_ITS ---
APPROVED REPORT Exam: Resting ECG HR:70 bpm ECG Measurements Heart Rate 70 AXES ME 170 P 27 QRSd 102 QRS -18 QT 393 T 15 QTc 414 Conclusion SINUS RHYTHM MODERATE VOLTAGE CRITERIA FOR LVH, CONSIDER NORMAL VARIANT [MEETS CRITERIA IN ONE OF: R(aVL), S(V1), R(V5), R(V5/V6)+S(V1)] BORDERLINE ECG UNCONFIRMED REPORT Electronically signed by : Tony Oquendo, 05/25/2025 15:00:42
--- NOTE | 2025-05-25 11:53 | ED_ITS ---
<Statement entered by Monica Oquendo MD - 05/25/25 14:36> I was consulted by the KATHRYN, and we discussed the complexity of the problems being addressed. I approved the treatment and management plan for this patient's care in the emergency department, thus performing a substantive portion of the medical decision making. Monica Oquendo MD, LAURA, FACEP Discharge Plan Disposition Chief Complaint: Arrhythmia/Palpitations Prescriptions Prescriptions: No Action cholecalciferol (vitamin D3) 25 mcg (1,000 unit) capsule 25 mcg PO DAILY omega-3 fatty acids 1,000 mg capsule 1,000 mg PO DAILY vitamin E (dl, acetate) 450 mg (1,000 unit) capsule 450 mg PO DAILY pantoprazole 20 mg tablet,delayed release (DR/EC) 20 mg PO DAILY PRN desloratadine [Clarinex] 5 mg tablet 5 mg PO DAILY PRN (Reason: alleric rhin) Qty: 30 0RF aspirin [Adult Low Dose Aspirin] 81 mg tablet,delayed release (DR/EC) 81 mg PO DAILY Qty: 30 2RF potassium chloride 20 mEq tablet extended release 20 meq PO DAILY amlodipine [Norvasc] 2.5 mg tablet 2.5 mg PO DAILY Qty: 30 5RF Referrals Follow up/Referrals: Fredis Rowan MD [Primary Care Provider, Family Practice] - See instructions Print Language Print Language: Ukrainian Discharge ED Provider: Monica Oquendo General Adult HPI General Chief complaint: Arrhythmia/Palpitations Stated complaint: high BP x a week, 190/110 this morning Time Seen by Provider: 05/25/25 11:25 Mode of Arrival: Ambulatory Source of Information: Patient Description of Symptoms (Recalled from ER Triage Doc. by RN): patient states she missed a few doses of her bp meds over and her bp has been reading high for several days. she did not take her bp meds before arrival History of Present Illness HPI narrative: 70-year-old female presents to the ED for complaint of high blood pressure. She does have a mild headache and some floaters. She has had some nausea but feels like that is from her congestion. Her diastolic has been 110 at home and she was concerned about this so she came in for evaluation. She has had no chest pain or shortness of breath. She took her amlodipine 2.5 mg but has not been taking her metoprolol. She takes this more as needed. Related Data Home Medications ?Medication ?Instructions ?Recorded ?Confirmed cholecalciferol (vitamin D3) 25 25 mcg PO DAILY 02/21/25 mcg (1,000 unit) capsule omega-3 fatty acids 1,000 mg 1,000 mg PO DAILY 5 02/21/25 capsule vitamin E (dl, acetate) 450 mg 450 mg PO DAILY 5 02/21/25 (1,000 unit) capsule potassium chloride 20 mEq 20 meq PO DAILY 12/09/24 tablet,extended release pantoprazole 20 mg tablet,delayed 20 mg PO DAILY PRN 0 01/08/25 02/21/25 release Previous Rx's ?Medication ?Instructions ?Recorded aspirin 81 mg tablet,delayed 81 mg PO DAILY #30 tabs 1 07/07/23 release (Adult Low Dose Aspirin) amlodipine 2.5 mg tablet (Norvasc) 2.5 mg PO DAILY #30 tabs 12/09/24 desloratadine 5 mg tablet 5 mg PO DAILY PRN alleric rh in #30 02/21/25 (Clarinex) tabs Allergies Allergy/AdvReac Type Severity Reaction Status Date / Time [id number] Reductase AdvReac Weakness Verified 02/21/25 13:05 Inhibitor [facility] Disclaimer: The information contained in this section may have been updated after the patient was seen, as this information can be updated by other users. Medical History Claudication Sialadenitis Hx of breast cancer Anxiety Hyperlipidemia Hypertension Surgical History History of appendectomy History of tubal ligation History of lumpectomy of right breast Social History Smoking Status: Never smoker alcohol intake: never current occupational status: other Travel in the last 8 weeks?: None Have you lived/traveled outside US in past 30 days?: No Contact w/someone who lives/traveled outside US past 30 days?: No Exposure to someone with infectious disease in past 14 days?: No Do you have a fever (greater than 100.4 F or 38 C)?: No Have you tested positive for COVID-19?: No Exposed to someone with COVID-19 in past 14 days?: No Do you have a sore throat?: No Do you have a cough?: No Do you have any weakness?: No Do you have any diarrhea?: No Are you experiencing any unusual bleeding?: No Do you have any muscle aches/pain?: No Do you have any abdominal pain?: No Are you experiencing loss of taste or smell?: No Other Medical History Have you received the Flu Vaccine for this season: No Have you received the Pneumonia Vaccine: No ROS Obtained: Yes Systems reviewed as appropriate & no additional complaints except as documented Constitutional Constitutional: Reports as per HPI Physical Exam General General appearance: alert Head Head exam: normocephalic Eye Eye exam: Present PERRL and EOMI ENT ENT exam: Present normal oropharynx and mucous membranes moist Neck Neck exam: Present full ROM and trachea midline Respiratory Respiratory exam: Present normal lung sounds bilaterally Cardiovascular Cardiovascular exam: Present regular rate, normal rhythm, normal heart sounds, +S1 and +S2 Abdominal Exam Abdominal exam: Present soft and normal bowel sounds Extremities Exam Extremities exam: Present full ROM and normal capillary refill Neurological Exam Neurological exam: Present alert and oriented X3 Skin Skin exam: Present warm and dry Medical Decision Making Medical Records Screening: Per USPSTF and CDC recommendations, given the prevalence of disease in our region, it is our hospital?s policy to screen for HIV and viral Hepatitis for all patients aged 18 and over and those with ongoing risk factors. Saad Inquiry Pt receiving controlled substance: No Saad was queried for this patient: No Vital Signs: 05/25/25 11:28 05/25/25 12:01 05/25/25 12:30 Temperature 98.1 F Temperature Source Oral Pulse Rate 68 61 Pulse Rate [Right Radial] 78 Respiratory Rate 16 Blood Pressure 146/85 H 158/87 H Blood Pressure [Right Arm] 168/89 H Blood Pressure Mean [Right Arm] 115 Blood Pressure Source [Right Arm] Automatic Cuff Blood Pressure Position [Right Arm] Supine 02 Sat by Pulse Oximetry 97 94 L 96 Oxygen Delivery Method Room Air Lab Data Lab Results 05/25/25 11:58: WBC 6.3, RBC 5.07, Hgb 15.7, Hct 45.7, MCV 90.1, MCH 31.0, MCHC 34.4, RDW 12.3, Plt Count 287, MPV 10.1, Neut % (Auto) 49.5, Lymph % (Auto) 38.8, [place] % (Auto) 7.5, Eos % (Auto) 2.4, Baso % (Auto) 1.6, Neut # (Auto) 3.1, Lymph # (Auto) 2.4, [place]rick # (Auto) 0.5, Eos # (Auto) 0.2, Baso # (Auto) 0.1, Sodium 139, Potassium 4.0, Chloride 107, Carbon Dioxide 24, Anion Gap 12.0, BUN 10, Creatinine 0.70, Estimated Creat Clear 53, Estimated GFR 83, Est GFR ( Amer) 100, Glucose 96, Calcium 9.8, Magnesium 2.3, Total Bilirubin 0.6, AST 31, ALT 28, Alkaline Phosphatase 76, Troponin I < 0.01, Total Protein 7.9, Albumin 4.5, Globulin 3.4 H, Albumin/Globulin Ratio 1.3, Lipase 65 05/25/25 11:58 05/25/25 11:58 Orders (Tests/Meds): ED MEDICATIONS Discontinued Medications Generic Name Dose Route Start Last Admin Trade Name Freq PRN Reason Stop Dose Admin Aspirin 325 mg 05/25/25 11:31 05/25/25 11:59 Aspirin 325mg Tablet PO 05/25/25 11:32 325 mg ONCE ONE Administration ORDERS Category Date Time Status Chest XR -- portable [XR chest portable] Stat Exams 05/25/25 11:31 Taken CBC [Complete Blood Count Auto Diff] Stat Lab 05/25/25 11:58 Completed Comprehensive Metabolic Panel Stat Lab 05/25/25 11:58 Completed HIV Combo Stat Lab 05/25/25 11:58 Received Hepatitis C Ab Qual. W/ RFX Stat Lab 05/25/25 11:58 Received Lipase Stat Lab 05/25/25 11:58 Completed Magnesium Stat Lab 05/25/25 11:58 Completed Trop I [Troponin I] Stat Lab 05/25/25 11:58 Completed Troponin I Q3H Lab 05/25/25 14:45 Ordered Troponin I Q3H Lab 05/25/25 17:45 Ordered Medical Decision Narrative: patient is a 70-year-old female presenting to the emergency department for evaluation of elevated blood pressure. Patient is hemodynamically stable and nontoxic-appearing upon arrival, afebrile. Differential diagnosis includes hypertension. Workup will be conducted with hematologic labs, specific imaging. Initial workup reviewed by me [hematologic labs are remarkable for He white count 6.3, H&H were normal, CMP was normal, troponin was less than 0.01. Patient's blood pressure has come down to 146/85. She says she does not feel bad. Patient stable and we discussed taking both blood pressure medications metoprolol and amlodipine. She asked me to refill the amlodipine for her which I will do. Patient is safe for discharge home. I asked her to make an appointment with her primary care and her cardiology doctor. She agrees. Patient safe for discharge home Critical Care Critical Care Time Critical Care Time: No
[2025-05-25] MEDS: ASPIRIN 325MG TABLET 325 MG PO (11:59)
[2025-05-25 12:01] VITALS: BP 146/85; PULSE 68; O2SAT 94
[2025-05-25 12:08] LABS: Hematocrit 45.7 % (37.0-47.0); Hemoglobin 15.7 g/dL (12.2-16.2); Immature Granulocytes % 0.2 %; Mean Corpuscular HGB Conc 34.4 g/dL (31.8-35.4); Mean Corpuscular Hemoglobin 31.0 pg (27.0-31.2); Mean Corpuscular Volume 90.1 fl (81-99); Nucleated Red Blood Cells % 0 %; Platelet Count 287 K/mm3 (142-424); Red Blood Count 5.07 M/mm3 (4.20-5.40); Red Cell Distribution Width-SD 41.1 fL; White Blood Count 6.3 K/mm3 (4.8-10.8)
[2025-05-25 12:14] LABS: Albumin Level 4.5 g/dl (3.5-5.0); Chloride 107 mmol/L (98-107); Potassium 4.0 mmoL/L (3.5-5.1); Sodium 139 mmol/L (136-145)
[2025-05-25 12:17] LABS: Alanine Aminotransferase 28 U/L (12-78); Albumin/Globulin Ratio 1.3 (1.1-1.8); Alkaline Phosphatase 76 U/L (38-126); Anion Gap 12.0 mEq/L (5-15); Aspartate Amino Transferase 31 U/L (14-36); Bilirubin,Total 0.6 mg/dl (0.2-1.3); Blood Urea Nitrogen 10 mg/dl (7-17); Calcium 9.8 mg/dl (8.4-10.2); Carbon Dioxide 24 mmol/L (22.0-30.0); Creatinine Clearance Estimated 53 mL/min (50-200); Creatinine,Serum 0.70 mg/dl (0.52-1.04); Estimated Glomerular Filt Rate 83 ml/min (>60); GFR (African American) 100 ML/MIN (>60); Globulin 3.4 g/dL (1.3-3.2); Glucose 96 mg/dl (74-100); Lipase 65 U/L (23-300); Total Protein,Serum 7.9 g/dl (6.3-8.2)
[2025-05-25 12:18] LABS: Magnesium 2.3 mg/dl (1.6-2.3)
[2025-05-25 12:30] VITALS: BP 158/87; PULSE 61; O2SAT 96
[2025-05-25 12:33] LABS: Troponin I < 0.01 ng/ml (0.00-0.034)
[2025-05-25 12:58] VITALS: BP 172/99; PULSE 64; RESP 16; TEMP 36.7; O2SAT 97
[2025-05-25 13:36] LABS: Hepatitis C Ab Qual. W/ RFX NEGATIVE (Negative)
== END 2025-05-25 13:02 | disposition home or self-care (01) ==
PROVIDERS: Nurse Practitioner; Emergency Provider Student in an Organized Health Care Education/Training Program; PCP Family Medicine
DX: R51.9 Headache, unspecified (principal); I10 Essential (primary) hypertension
CPT/HCPCS: 36415; 71045; 80053; 83690; 83735; 84484; 85025; 86803; 87389; 93005; 99284